=== PATIENT | female | born 1965 | race Caucasian/White ===

== ENCOUNTER → 2019-04-10 15:11 | Outpatient (BNVA) | payer MEDICARE, OTHER, SELFPAY | PROVIDERS: Family Provider Family Medicine; PCP Family Medicine; Visit Provider Internal Medicine Rheumatology | DX: M25.561 Pain in right knee (principal); M25.562 Pain in left knee; G35 Multiple sclerosis; D68.61 Antiphospholipid syndrome; Z86.718 Personal history of other venous thrombosis and embolism; Z86.711 Personal history of pulmonary embolism; Z99.3 Dependence on wheelchair; Z79.01 Long term (current) use of anticoagulants | CPT/HCPCS: 99215; G0463 ==

== ENCOUNTER 2019-04-13 15:03 | Outpatient (CLI) | payer MEDICARE, OTHER, SELFPAY ==
[2019-04-13 15:44] LABS: Basophils # 0.1 10^3/uL (0.0-0.1); Basophils % 0.9 %; Eosinophils # 0.2 10^3/uL (0.0-0.8); Eosinophils % 3.2 %; Hematocrit 40.5 % (37.0-47.0); Hemoglobin 13.2 g/dL (11.5-15.3); Lymphocytes # 2.4 10^3/uL (0.8-4.8); Lymphocytes % 35.6 %; Mean Corpuscular HGB Conc 32.6 g/dL (30.0-36.0); Mean Corpuscular Hemoglobin 29.5 pg (28.0-34.0); Mean Corpuscular Volume 90.6 fL (81-99); Mean Platelet Volume 11.7 fL (7.4-10.4); Monocytes # 0.3 10^3/uL (0.2-0.9); Monocytes % 4.4 %; Neutrophils # 3.7 10^3/uL (1.8-7.7); Neutrophils % 55.6 %; Nucleated Red Blood Cells % 0 %; Platelet Count 156 10^3/cmm (130-400); Red Blood Count 4.47 10^6/uL (4.1-5.3); White Blood Count 6.6 10^3/uL (4.0-10.0)
[2019-04-13 16:06] LABS: Complement C3 133 mg/dL (90-180)
[2019-04-13 16:53] LABS: Erythrocyte Sedimentation Rate 80 mm/hr (0-15)
[2019-04-13 18:09] LABS: Alanine Aminotransferase 10 U/L (0-33); Albumin Level 3.5 g/dL (3.5-5.2); Alkaline Phosphatase 109 IU/L (35-105); Aspartate Amino Transferase 21 U/L (0-32); C Reactive Protein 15.4 mg/L (0.0-4.9); Total Bilirubin 0.2 mg/dL (0.15-1.2); Total Protein 6.5 g/dL (6.6-8.7); Uric Acid 3.9 mg/dL (2.4-5.7)
[2019-04-14 08:37] LABS: 25 Hydroxy Vitamin D 31 ng/mL (30-100)
== END 2019-04-13 15:04 | disposition home or self-care (01) ==
LOC: LAB 15:06
PROVIDERS: Family Provider Family Medicine; PCP Family Medicine; Visit Provider Internal Medicine Rheumatology
DX: Z79.899 Other long term (current) drug therapy (principal); M19.90 Unspecified osteoarthritis, unspecified site
CPT/HCPCS: 80076; 82306; 82565; 84550; 85025; 85651; 86140; 86160

== ENCOUNTER 2019-04-17 14:58 | Outpatient (CLI) | payer MEDICARE, OTHER, SELFPAY ==
--- NOTE | 2019-04-17 | XR_ITS ---
WS: [id number] LEFT KNEE: 2 VIEW(S) TECHNIQUE: AP and lateral. HISTORY: BILATERAL KNEE PAIN COMPARISON: None available. Bones are markedly osteopenic. Very limited evaluation of the knee due to difficulty positioning. Mix ed sclerotic and lytic lesions in the distal femur and proximal tibia probably related to prior infar cts. Patella is abnormally positioned. There is loss of the joint space in the medial compartment and patellofemoral compartment. No joint effusion. No soft tissue abnormality. XR/XR knee LT 1-2V [id number] IMPRESSION: 1. Severe osteopenia. 2. No fracture identified. 3. No joint effusion. 4. 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
--- NOTE | 2019-04-17 | XR_ITS ---
WS: [id number] RIGHT KNEE: 2 VIEW(S) TECHNIQUE: AP and lateral. HISTORY: BILATERAL KNEE PAIN COMPARISON: None available. No fracture or dislocation. Mild narrowing of all 3 compartments. Mixed sclerotic and lytic lesions in the distal femur and proxi mal tibia. No joint effusion. No soft tissue abnormality. XR/XR knee RT 1-2V [id number] IMPRESSION: 1. No joint effusion or fracture. 2. Bone infarcts distal femur and proximal tibia.
== END 2019-04-17 14:59 | disposition home or self-care (01) ==
LOC: RADOUTREAD 04-18 07:16
PROVIDERS: Family Provider Family Medicine; PCP Family Medicine; Visit Provider Family Medicine
DX: Z76.89 Persons encountering health services in other specified circumstances (principal)

== ENCOUNTER 2019-04-20 06:00 | Outpatient (CLI) | payer MEDICARE, OTHER, SELFPAY ==
[2019-04-23 13:41] LABS: Cyclic Citrullinated Peptide <16 UNITS
== END 2019-04-20 06:01 | disposition home or self-care (01) ==
LOC: LAB 11:59
PROVIDERS: Family Provider Family Medicine; PCP Family Medicine; Visit Provider Internal Medicine Rheumatology
DX: Z01.89 Encounter for other specified special examinations (principal)

== ENCOUNTER 2019-05-14 10:08 | Outpatient (CLI) | payer MEDICARE, OTHER, SELFPAY ==
--- NOTE | 2019-05-14 10:14 | MR_ITS ---
WS: [id number] MRI of the pelvis with and without IV contrast, 05/14/2019 Clinical Data: Hx of Osteomyelitis of ischium, chronic decubitus ulcers Comparison: MRI of the pelvis, 03/06/2018. Findings: There are soft tissue ulcerations inferior to both ischial tuberosities. The bone marrow signal of th e pelvis, hips sacrum and lower vertebral bodies is normal. There is no abnormal enhancement after th e intravenous contrast was administered. No definite osteomyelitis is seen. The coccyx and lower segm ents of the sacrum are absent. The hips are intact without fracture. No pelvic fractures are seen. T he soft tissues of pelvis show that there is a catheter within the bladder. The rectum and uterus are not remarkable. The SI joints and pubic symphysis are not remarkable. MR/MR pelvis wo/w con [id number] Impression: 1. Soft tissue ulcerations inferior to both issue tuberosities unchanged. 2. No definite osteomyelitis and no abnormal contrast-enhancement structures. 3. No change from prior study.
== END 2019-05-14 10:09 | disposition home or self-care (01) ==
LOC: RADSHAW 10:08
PROVIDERS: Family Provider Family Medicine; PCP Family Medicine; Visit Provider Internal Medicine Rheumatology
DX: L89.899 Pressure ulcer of other site, unspecified stage (principal)
CPT/HCPCS: 72197; A9579

== ENCOUNTER 2019-10-03 14:32 | Outpatient (CLI) | payer MEDICARE, OTHER, SELFPAY ==
[2019-10-03 19:44] LABS: Alanine Aminotransferase 9 U/L (0-33); Albumin Level 3.4 g/dL (3.5-5.2); Alkaline Phosphatase 111 IU/L (35-105); Aspartate Amino Transferase 23 U/L (0-32); Blood Urea Nitrogen 5 mg/dL (6-20); Calcium 9.1 mg/dL (8.5-10.5); Carbon Dioxide 29 mmol/L (22-29); Chloride 95 mmol/L (98-107); Globulin 2.8 g/dL (1.3-4.6); Glucose 103 mg/dL (65-115); Osmolality Calculated 276 mOsm/kg (285-295); Sodium 135 mmol/L (136-145); Total Bilirubin 0.2 mg/dL (0.15-1.2); Total Protein 6.2 g/dL (6.6-8.7)
== END 2019-10-03 14:33 | disposition home or self-care (01) ==
LOC: LAB 14:36
PROVIDERS: PCP Family Medicine; Visit Provider Family Medicine
DX: G35 Multiple sclerosis (principal)
CPT/HCPCS: 80053

== ENCOUNTER 2019-10-24 16:33 | Outpatient (CLI) | payer MEDICARE, OTHER, SELFPAY ==
[2019-10-24 17:29] LABS: Anion Gap 11.9 (5-19); Blood Urea Nitrogen 5 mg/dL (6-20); Carbon Dioxide 28 mmol/L (22-29); Chloride 100 mmol/L (98-107); Glucose 111 mg/dL (65-115); Osmolality Calculated 278 mOsm/kg (285-295); Potassium 3.9 mmol/L (3.5-5.1); Sodium 136 mmol/L (136-145)
== END 2019-10-24 16:34 | disposition home or self-care (01) ==
LOC: LAB 16:35
PROVIDERS: PCP Family Medicine; Visit Provider Family Medicine
DX: G35 Multiple sclerosis (principal)
CPT/HCPCS: 80048

== ENCOUNTER → 2020-04-07 14:19 | Outpatient (BNVA) | payer MEDICARE, OTHER, SELFPAY | PROVIDERS: PCP Family Medicine; Visit Provider Specialist | DX: G35 Multiple sclerosis (principal); Z79.899 Other long term (current) drug therapy | CPT/HCPCS: 99214 ==

== ENCOUNTER 2020-09-03 16:22 | Inpatient (IN) | payer MEDICARE, OTHER, SELFPAY ==
[2020-09-03] VITALS (14 sets, daily range): BP systolic 74–97; BP diastolic 45–73; PULSE 79–115; RESP 14–28; TEMP 37; O2SAT 95–100; BMI 28.3
--- NOTE | 2020-09-03 16:23 | XR_ITS ---
WS: [id number] Portable AP upright chest, 09/03/2020 Clinical Data: resp distress Comparison: Portable chest, 02/02/2018. Findings: There is a patchy opacity in the retrocardiac region which is probably atelectasis. There may be a left pleural effusion. There is a minimal patchy opacity of the right costophrenic angle. No nodules or masses are seen. The heart is normal. The pulmonary vascularity is not increased. No pneu mothorax is present. Monitor leads are on the chest wall. XR/XR chest 1V portable [id number] Impression: 1. Patchy opacity in the retrocardiac region which probably represents atelecta sis with a left pleural effusion. 2. Minimal patchy opacity at the right costophrenic angle which could represent atelectasis and/or minimal pneumonia.
--- NOTE | 2020-09-03 16:25 | ECG_ITS ---
[facility] Test Date: 2020-09-03 Pat Name: Deborah Viramontes Department: Room: Gender: Female Neuropsychologist: : 1965 Requested By: Bobby Mills Order Number: [id number] Mita MD: Thom Frederick M.D. Measurements Intervals [place] Rate: 96 P: 63 TX: 120 QRS: 18 QRSD: 92 T: -36 QT: 358 QTc: 455 Interpretive Statements SINUS RHYTHM MINIMAL ST DEPRESSION [0.025+ mV ST DEPRESSION] Diffuse nonspecific T wave changes Compared to ECG 05/18/2017 06:51:48 ST (T wave) deviation now present T-wave abnormality no longer present Electronically Signed On 09-03-2020 22:54:26 CDT by Thom Frederick M.D. [id number]
[2020-09-03 16:28] LABS: ABG PCO2 43.9 mmHg (35-45); ABG PH Result 7.44 (7.35-7.45); Arterial Blood Gas Hematocrit 46.7 % (37-47); Base Excess ABG 4.9 mmol/L (-2.0-2.0); Blood Gas Operator Identificat MONRO; Blood Gas Sample Site Radial, left; Blood Gas Sample Type Arterial; HCO3 ABG 29.8 mmol/L (22-26); HGB O2 Sat 79.9 % (95-100); Methemoglobin 0.6 % (0.4-1.5); Oxygen Device NRB; PO2 ABG 47.2 mmHg (80.0-100.0); Total Hemoglobin 15.2 g/dL (12-16)
--- NOTE | 2020-09-03 16:48 | CTR_ITS ---
PROCEDURE INFORMATION: Exam: CT Chest Without Contrast; Diagnostic Exam date and time: 09/03/2020 4:48 PM Age: 54 years old Clinical indication: Shortness of breath; Additional info: Dyspnea. H/o pneumothorax x 2. TECHNIQUE: Imaging protocol: Diagnostic computed tomography of the chest without contrast. Sagittal and coronal reformatted images were created and reviewed. Radiation optimization: All CT scans at this facility use at least one of these dose optimization techniques: automated exposure control; mA and/or kV adjustment per patient size (includes targeted exams where dose is matched to clinical indication); or iterative reconstruction. COMPARISON: CR XR chest 1V portable [id number] 09/03/2020 4:32 PM RADIATION DOSE METRICS: Total DLP (mGy-cm): 787.66 FINDINGS: Limitations: Evaluation of the mediastinum and vasculature is limited without intravenous contrast. Lungs: Mucous plugging in the left lower lobe bronchus extending into the left upper lobe, left lingular, and left lower lobe bronchus and segmental bronchi. Associated atelectasis in the left lower lobe, possible pneumonia cannot be ruled out. No pulmonary parenchymal nodules or masses. Areas of rounded atelectasis in the right upper and lower lobes. Pleural spaces: No pneumothorax. No pleural effusion. Heart: Mild enlargement of the heart. Mediastinal space: No mediastinal hematoma. No pneumomediastinum. Aorta: No evidence for aortic aneurysm. Lymph nodes: No lymphadenopathy. Liver: The visualized liver is unremarkable. Gallbladder and bile ducts: Patient has had a previous cholecystectomy. No dilatation of the visualized bile ducts. Pancreas: Moderate atrophy of the visualized pancreatic parenchyma. Spleen: The spleen is unremarkable. Adrenal glands: The right and left adrenal glands are unremarkable. Kidneys and ureters: The visualized right and left kidneys are unremarkable. Bones/joints: Multilevel degenerative changes of varying severity in the visualized spine. Soft tissues: Mild body wall edema. CT/CT chest wo con [id number] IMPRESSION: 1. Mucous plugging in the left lower lobe bronchus extending into the left upper lobe, left lingular, and left lower lobe bronchus and segmental bronchi. Associated atelectasis in the left lower lobe, possible pneumonia cannot be ruled out. Recommend followup chest imaging to insure resolution of these findings. 2. Mild body wall edema. 3. Incidental/nonacute findings are listed in the report. Radiation Dose CTDIVOL = (mGy): DLP = 787.66 (mGy-cm)
[2020-09-03] MEDS: cefTRIAXone 1,000 MG in sodium chloride 0.9% (plus) 50 ML 100 MG IV (16:52)
[2020-09-03] MEDS: sodium chloride 0.9% 1,000 ML 999 ML IV (16:53)
[2020-09-03 17:00] LABS: Basophils # 0.1 10^3/uL (0.0-0.1); Basophils % 0.4 %; Eosinophils % 0.3 %; Hematocrit 45.7 % (37.0-47.0); Hemoglobin 14.8 g/dL (11.5-15.3); Lymphocytes # 1.4 10^3/uL (0.8-4.8); Lymphocytes % 12.5 %; Mean Corpuscular HGB Conc 32.4 g/dL (30.0-36.0); Mean Corpuscular Volume 89.6 fL (81-99); Mean Platelet Volume 12.4 fL (7.4-10.4); Monocytes # 0.7 10^3/uL (0.2-0.9); Monocytes % 6.2 %; Neutrophils # 8.97 10^3/uL (1.8-7.7); Neutrophils % 80.2 %; Nucleated Red Blood Cells % 0 %; Platelet Count 134 10^3/cmm (130-400); Red Cell Distribution Width 15.9 % (12.1-15.1); White Blood Count 11.2 10^3/uL (4.0-10.0)
[2020-09-03 17:04] LABS: INR 2.33 (0.8-1.2)
[2020-09-03 17:15] LABS: Troponin(5th) Baseline 49 ng/L (0-10)
[2020-09-03 17:19] LABS: Alanine Aminotransferase 8 U/L (0-33); Albumin Level 3.4 g/dL (3.5-5.2); Alkaline Phosphatase 128 IU/L (35-105); Anion Gap 15.6 (5-19); Aspartate Amino Transferase 17 U/L (0-32); Blood Urea Nitrogen 7 mg/dL (6-20); Calcium 8.4 mg/dL (8.5-10.5); Carbon Dioxide 27 mmol/L (22-29); Chloride 101 mmol/L (98-107); Creatine Phosphokinase 29 U/L (26-192); Globulin 2.2 g/dL (1.3-4.6); Glomerular Filtration Rate 129.1 mL/min (90-130); Glucose 126 mg/dL (65-115); NT Pro B Type Natriuretic Pept 118 pg/mL (0-125); Osmolality Calculated 290 mOsm/kg (285-295); Potassium 3.6 mmol/L (3.5-5.1); Sodium 140 mmol/L (136-145); Total Bilirubin 0.2 mg/dL (0.15-1.2); Total Protein 5.6 g/dL (6.6-8.7)
[2020-09-03] MEDS: ipratropium-albuterol 3 mL Neb INHALATION ×2 (17:25→21:07)
[2020-09-03] MEDS: vancomycin 1,000 MG in sodium chloride 0.9% 250 ML 250 MG IV (17:35)
[2020-09-03] MEDS: piperacillin-tazobactam 3.375 GM in sodium chloride 0.9% (plus) 50 ML IV (17:35)
[2020-09-03 17:42] LABS: Add Urine Microscopic? YES; Bilirubin Urine Neg (Negative); Blood Urine 2+ (Negative); Glucose Urine UA Norm (Normal); Ketones Urine Negative (Negative); Leukocyte Esterase Urine 2+ (Negative); Nitrate Urine Negative (Negative); Protein Urine Neg (Negative); Specific Gravity, Urine 1.015 (1.005-1.030); Sulfosalicylic Acid Urine Negative (Negative); Urine Appearance Hazy (CLEAR); Urine Color Yellow (Yellow); Urobilinogen Urine Norm (Negative); pH Urine 8 (5-7)
[2020-09-03 17:43] LABS: Add Urine Culture? Yes; Bacteria Urine 3+ /hpf; RBC Urine 0-4 /hpf (0-2); Squamous Epithelial Cell Urine RARE /hpf (0-5); WBC Urine 15-25 /hpf (0-5)
[2020-09-03 17:59] LABS: Lactic Sepsis W/Reflex 1.2 mmol/L (0.5-2.2)
[2020-09-03 18:07] LABS: SARS Covid-2 Antigen Negative (Negative)
--- NOTE | 2020-09-03 18:20 | W.ED.SOB ---
HPI - SOB/Dyspnea General: Chief Complaint: Shortness of Breath/Dyspnea Stated Complaint: RESP DISTRESS, RESP FAILURE Time Seen by Provider: 09/03/20 16:23 History of Present Illness: HPI Narrative: Patient is a 54-year-old female with past medical history MS with severe chronic weakness for the past few years which is left her wheelchair-bound and only able to move her left upper extremity. Also has history of and being treated for UTI on Keflex right now. Had DVTs and PEs years ago and she is on Coumadin for this. She has suffered from JOSEPH virus in the past, she has neurogenic bladder and she has had a pneumothorax twice. She has not received her Covid vaccines. says she does not want them. She normally does not wear oxygen at home however she does have as needed oxygen and she started on 3 L today. When EMS arrived they noted her sats noted she was severely hypoxic and started her on nonrebreather which got her up to the low 90s. They also noted severely reduced left lower lung sounds. MD elicited complaint: shortness of breath Timing: constant and progressively worsening Severity: severe Relieving factors: oxygen Associated symptoms: Reports no associated symptoms; Deny abdominal pain, chest pain, dizziness, extremity pain, orthopnea, palpitations or polyuria Review of Systems General: Reports: 10 or more systems reviewed and unremarkable except in HPI and below Const: Denies: fatigue Eyes: Denies: change in vision, blurry vision or eye redness ENMT: Denies: throat pain, swelling of lips/tongue, ear or mastoid pain or nasal congestion Card: Denies: chest pain, palpitations, irregular heart rhythm, edema, dyspnea on exertion or orthopnea Resp: Reports: dyspnea; Denies: productive cough or non-productive cough GI: Denies: abdominal pain, diarrhea or GI cramping : Denies: flank pain, difficulty voiding, urinary frequency or urinary urgency Musc: Denies: neck pain, back pain, extremity pain, joint pain, joint redness, limited range of motion or muscle weakness Skin/Breast: Denies: rash, pruritus, erythema, skin pain or skin tenderness Neuro: Denies: headache(s), numbness in extremities, weakness in extremities, sensory changes, difficulty walking, dizziness, confusion or Slurred speech present Psych: Denies: anxiety or depression Endo: Denies: polyuria All/Imm: Denies: urticaria, throat swelling or tongue swelling PFSH ED PFSH: Medical History Pedro disease Antiphospholipid syndrome AVN of femur Bone infarction of lower extremity High risk medication use Hx of deep venous thrombosis Hx of pulmonary embolus Immunization counseling Inflammatory arthritis Multiple sclerosis Neuralgia and neuritis, unspecified Positive JARRED (antinuclear antibody) Pulmonary embolism Recurrent UTI Systemic lupus erythematosus, unspecified Wheelchair bound Surgical History H/O chest tube placement History of bone marrow biopsy Hx of cholecystectomy Family History Denies family history of Rheumatoid arthritis Lupus Social History Smoking and tobacco status: unknown if ever smoked Alcohol intake: former Caregiver/support person: Yes () Lives independently: Yes Household members: spouse Marital status: Current occupational status: disabled History of recent travel: No Current gender identity: Female Physical Exam Narrative: EXAM NARRATIVE: She has chronic MS which is severe with profound extremity weakness. She is only able to move her left upper extremity chronically and lives in a wheelchair. Const: COMMON NORMALS: patient oriented x3 and alert GENERAL APPEARANCE: in distress and ill appearing ORIENTATION/CONSCIOUSNESS: Yes awake, Yes oriented to person and Yes oriented to place OTHER: She responds to questions appropriately when asked. HENMT: COMMON NORMALS: normocephalic, external ears normal and Normal external nose present HEAD & SCALP: normal to inspection and normocephalic NOSE: Normal external nose present EXTERNAL EAR: Yes external ears normal MOUTH: Normal oral and palatal mucosa present THROAT: posterior oropharynx normal Eye: COMMON NORMALS: Equal, round and reactive pupils present and EOMs intact bilaterally GENERAL EYE: appearance normal, both eyes and all related structures PUPIL: Yes Equal, round and reactive pupils present Neck/C-Spine: COMMON NORMALS: full ROM, no lymphadenopathy, no meningeal signs and no JVD GENERAL: Yes normal visual inspection Lymph: LYMPHATIC: no lymphadenopathy noted Chest: COMMONS NORMALS: normal inspection of the chest and normal palpation of entire chest wall Resp: EFFORT & INSPECTION: Yes tachypneic, Yes respiratory distress and Yes other OTHER: Severely reduced breath sounds on the left entire lung diez. Right lung diez are normal with a mild wheeze occasionally. She has profound weakness from her MS chronically and likely does not have very good inspiratory effort chronically. Cardio: COMMON NORMALS: no JVD, regular rate, regular rhythm, S1 normal heart sound present, S2 normal heart sound present and Peripheral pulses 2+ throughout RATE: regular rate RHYTHM: regular rhythm HEART SOUNDS: S1 normal heart sound present and S2 normal heart sound present PERIPHERAL PULSES: Peripheral pulses 2+ throughout GI: COMMON NORMALS: Normal to inspection, nondistended, normoactive bowel sounds present, Soft to palpation, non-tender and no masses INSPECTION: Yes normal to inspection PALPATION: Yes Soft to palpation : COMMON NORMALS: Yes no CVA tenderness BLADDER/KIDNEY EXAM: Yes no CVA tenderness Back/Pelvis: COMMON NORMALS: no CVA tenderness, thoracic and lumbar spine normal to inspection, no thoracic nor lumbar tenderness and thoraco-lumbar ROM normal Extremity: COMMON NORMALS: normal to inspection, full ROM, capillary refill normal, no joint enlargement and no pedal edema GENERAL: Yes normal exam except as noted OTHER: Chronic severely weak right upper and bilateral lower extremity weakness. She has mildly weak in her left upper extremity well but is able to move it above her head and pointed things. Neuro: COMMON NORMALS: patient oriented x3 SENSORIUM/ORIENTATION: Yes alert, Yes oriented to person, Yes oriented to place and Yes somnolent MENINGEAL SIGNS: Yes no meningeal signs OTHER: Chronically she is only able to move her left upper extremity. The right upper and bilateral lower extremities are severely weak with no movement at all. She has intact sensation. She lives in a wheelchair chronically. She is able to make eye contact and answer some questions on arrival. She is sleepy but will awaken to verbal stimulus and answer questions appropriately. Skin: COMMON NORMALS: no rashes or lesions noted GENERAL SKIN EXAM: no rashes or lesions noted Course Vital Signs: Vital signs: Vital Signs Temperature 98.6 F 09/03/20 16:22 Pulse Rate 87 09/03/20 17:30 Respiratory Rate 14 09/03/20 17:23 Blood Pressure 92/62 09/03/20 16:58 Pulse Oximetry 95 09/03/20 17:29 MDM - SOB/Dyspnea MDM Narrative: Medical decision making narrative: This patient came in severely ill with reduced breath sounds on the left side. Concern for pneumothorax initially because of her history of having 2 of them however it was found with a CT that she more than likely has mucous plugging causing her severely reduced breath sounds likely from her chronic muscular weakness related to MS and poor inspiratory effort chronically. Placed her on BiPAP which improved her respiratory status greatly and she is now breathing comfortably on that. Discussed with Dr. Rojas who recommends admitting her to the ICU and doing a bronc in the morning. Discussed with Dr. Alonzo who accepts to ICU Lab Data: Labs: Lab Results 09/03/20 09/03/20 09/03/20 Range/Units 16:17 16:23 16:23 WBC 11.2 H (4.0-10.0) 10^3/ uL RBC 5.10 (4.1-5.3) 10^6/u L Hgb 14.8 (11.5-15.3) g/dL Hct 45.7 (37.0-47.0) % MCV 89.6 (81-99) fL MCH 29.0 (28.0-34.0) pg MCHC 32.4 (30.0-36.0) g/dL RDW 15.9 H (12.1-15.1) % Plt Count 134 (130-400) 10^3/c mm MPV 12.4 H (7.4-10.4) fL Neut % (Auto) 80.2 % Lymph % (Auto) 12.5 % [place] % (Auto) 6.2 % Eos % (Auto) 0.3 % Baso % (Auto) 0.4 % Neut # (Auto) 8.97 H (1.8-7.7) 10^3/u L Lymph # (Auto) 1.4 (0.8-4.8) 10^3/u L [place] # (Auto) 0.7 (0.2-0.9) 10^3/u L Eos # (Auto) 0.0 (0.0-0.8) 10^3/u L Baso # (Auto) 0.1 (0.0-0.1) 10^3/u L Nucleated RBC % (a uto) 0 % Nucleated RBCs # 0.0 /100WBC PT (12.1-14.9) SECO NDS INR (0.8-1.2) Specimen Type Arterial Sample Site Radial, left ABG pH 7.44 (7.35-7.45) ABG pCO2 43.9 (35-45) mmHg ABG pO2 47.2 L (80.0-100.0) mmH g ABG HCO3 29.8 H (22-26) mmol/L ABG Base Excess 4.9 H (-2.0-2.0) mmol/ L Adam Test N/a Hematocrit 46.7 (37-47) % Hgb O2 Saturation 79.9 L (95-100) % Carboxyhemoglobin 9.0 (0.4-20.1) %THgb Methemoglobin 0.6 (0.4-1.5) % Total Hemoglobin 15.2 (12-16) g/dL O2 Delivery Device Nrb O2 Liters/Min 15.0 % FiO2 100.0 % Disc Recordist ID [place] Sodium 140 (136-145) mmol/L Potassium 3.6 (3.5-5.1) mmol/L Chloride 101 (98-107) mmol/L Carbon Dioxide 27 (22-29) mmol/L Anion Gap 15.6 (5-19) BUN 7 (6-20) mg/dL Creatinine 0.5 (0.5-0.9) mg/dL GFR Calculation 129.1 (90-130) mL/min Glucose 126 H (65-115) mg/dL Calculated Osmolal ity 290 (285-295) mOsm/k g Lactic Acid (0.5-2.2) mmol/L Calcium 8.4 L (8.5-10.5) mg/dL Total Bilirubin 0.2 (0.15-1.2) mg/dL AST 17 (0-32) U/L ALT 8 (0-33) U/L Alkaline Phosphata se 128 H (35-105) IU/L Creatine Kinase 29 (26-192) U/L Troponin T Baselin e (0-10) ng/L NT-Pro-B Natriuret Pep 118 (0-125) pg/mL Total Protein 5.6 L (6.6-8.7) g/dL Albumin 3.4 L (3.5-5.2) g/dL Globulin 2.2 (1.3-4.6) g/dL Urine Color (Yellow) Urine Appearance (CLEAR) Urine pH (5-7) Ur Specific Gravit y (1.005-1.030) Urine Protein (Negative) Urine Glucose (UA) (Normal) Urine Ketones (Negative) Urine Blood (Negative) Urine Nitrate (Negative) Urine Bilirubin (Negative) Prot Sulfosalicyli c Acd (Negative) Urine Urobilinogen (Negative) mg/dL Ur Leukocyte Genna ase (Negative) Urine RBC (0-2) /hpf Urine WBC (0-5) /hpf Ur Squamous Epith Cells (0-5) /hpf Amorphous Sediment Urine Bacteria (NONE) /hpf Coarse Granular Ca sts /lpf SARS-CoV-2 Ag (Rap id) (Negative) 09/03/20 09/03/20 09/03/20 Range/Units 16:23 16:23 16:55 WBC (4.0-10.0) 10^3/ uL RBC (4.1-5.3) 10^6/u L Hgb (11.5-15.3) g/dL Hct (37.0-47.0) % MCV (81-99) fL MCH (28.0-34.0) pg MCHC (30.0-36.0) g/dL RDW (12.1-15.1) % Plt Count (130-400) 10^3/c mm MPV (7.4-10.4) fL Neut % (Auto) % Lymph % (Auto) % [place] % (Auto) % Eos % (Auto) % Baso % (Auto) % Neut # (Auto) (1.8-7.7) 10^3/u L Lymph # (Auto) (0.8-4.8) 10^3/u L [place] # (Auto) (0.2-0.9) 10^3/u L Eos # (Auto) (0.0-0.8) 10^3/u L Baso # (Auto) (0.0-0.1) 10^3/u L Nucleated RBC % (a uto) % Nucleated RBCs # /100WBC PT 26.00 H (12.1-14.9) SECO NDS INR 2.33 H (0.8-1.2) Specimen Type Sample Site ABG pH (7.35-7.45) ABG pCO2 (35-45) mmHg ABG pO2 (80.0-100.0) mmH g ABG HCO3 (22-26) mmol/L ABG Base Excess (-2.0-2.0) mmol/ L Adam Test Hematocrit (37-47) % Hgb O2 Saturation (95-100) % Carboxyhemoglobin (0.4-20.1) %THgb Methemoglobin (0.4-1.5) % Total Hemoglobin (12-16) g/dL O2 Delivery Device O2 Liters/Min % FiO2 % Disc Recordist ID Sodium (136-145) mmol/L Potassium (3.5-5.1) mmol/L Chloride (98-107) mmol/L Carbon Dioxide (22-29) mmol/L Anion Gap (5-19) BUN (6-20) mg/dL Creatinine (0.5-0.9) mg/dL GFR Calculation (90-130) mL/min Glucose (65-115) mg/dL Calculated Osmolal ity (285-295) mOsm/k g Lactic Acid (0.5-2.2) mmol/L Calcium (8.5-10.5) mg/dL Total Bilirubin (0.15-1.2) mg/dL AST (0-32) U/L ALT (0-33) U/L Alkaline Phosphata se (35-105) IU/L Creatine Kinase (26-192) U/L Troponin T Baselin e 49 H (0-10) ng/L NT-Pro-B Natriuret Pep (0-125) pg/mL Total Protein (6.6-8.7) g/dL Albumin (3.5-5.2) g/dL Globulin (1.3-4.6) g/dL Urine Color Yellow (Yellow) Urine Appearance Hazy A (CLEAR) Urine pH 8 H (5-7) Ur Specific Gravit y 1.015 (1.005-1.030) Urine Protein Neg (Negative) Urine Glucose (UA) Norm (Normal) Urine Ketones Negative (Negative) Urine Blood 2+ H (Negative) Urine Nitrate Negative (Negative) Urine Bilirubin Neg (Negative) Prot Sulfosalicyli c Acd Negative (Negative) Urine Urobilinogen Norm (Negative) mg/dL Ur Leukocyte Genna ase 2+ H (Negative) Urine RBC 0-4 H (0-2) /hpf Urine WBC 15-25 H (0-5) /hpf Ur Squamous Epith Cells Rare (0-5) /hpf Amorphous Sediment Not Reportable Urine Bacteria 3+ H (NONE) /hpf Coarse Granular Ca sts 5-10 H /lpf SARS-CoV-2 Ag (Rap id) (Negative) 09/03/20 09/03/20 Range/Units 17:11 17:15 WBC (4.0-10.0) 10^3/ uL RBC (4.1-5.3) 10^6/u L Hgb (11.5-15.3) g/dL Hct (37.0-47.0) % MCV (81-99) fL MCH (28.0-34.0) pg MCHC (30.0-36.0) g/dL RDW (12.1-15.1) % Plt Count (130-400) 10^3/c mm MPV (7.4-10.4) fL Neut % (Auto) % Lymph % (Auto) % [place] % (Auto) % Eos % (Auto) % Baso % (Auto) % Neut # (Auto) (1.8-7.7) 10^3/u L Lymph # (Auto) (0.8-4.8) 10^3/u L [place] # (Auto) (0.2-0.9) 10^3/u L Eos # (Auto) (0.0-0.8) 10^3/u L Baso # (Auto) (0.0-0.1) 10^3/u L Nucleated RBC % (a uto) % Nucleated RBCs # /100WBC PT (12.1-14.9) SECO NDS INR (0.8-1.2) Specimen Type Sample Site ABG pH (7.35-7.45) ABG pCO2 (35-45) mmHg ABG pO2 (80.0-100.0) mmH g ABG HCO3 (22-26) mmol/L ABG Base Excess (-2.0-2.0) mmol/ L Adam Test Hematocrit (37-47) % Hgb O2 Saturation (95-100) % Carboxyhemoglobin (0.4-20.1) %THgb Methemoglobin (0.4-1.5) % Total Hemoglobin (12-16) g/dL O2 Delivery Device O2 Liters/Min % FiO2 % Disc Recordist ID Sodium (136-145) mmol/L Potassium (3.5-5.1) mmol/L Chloride (98-107) mmol/L Carbon Dioxide (22-29) mmol/L Anion Gap (5-19) BUN (6-20) mg/dL Creatinine (0.5-0.9) mg/dL GFR Calculation (90-130) mL/min Glucose (65-115) mg/dL Calculated Osmolal ity (285-295) mOsm/k g Lactic Acid 1.2 (0.5-2.2) mmol/L Calcium (8.5-10.5) mg/dL Total Bilirubin (0.15-1.2) mg/dL AST (0-32) U/L ALT (0-33) U/L Alkaline Phosphata se (35-105) IU/L Creatine Kinase (26-192) U/L Troponin T Baselin e (0-10) ng/L NT-Pro-B Natriuret Pep (0-125) pg/mL Total Protein (6.6-8.7) g/dL Albumin (3.5-5.2) g/dL Globulin (1.3-4.6) g/dL Urine Color (Yellow) Urine Appearance (CLEAR) Urine pH (5-7) Ur Specific Gravit y (1.005-1.030) Urine Protein (Negative) Urine Glucose (UA) (Normal) Urine Ketones (Negative) Urine Blood (Negative) Urine Nitrate (Negative) Urine Bilirubin (Negative) Prot Sulfosalicyli c Acd (Negative) Urine Urobilinogen (Negative) mg/dL Ur Leukocyte Genna ase (Negative) Urine RBC (0-2) /hpf Urine WBC (0-5) /hpf Ur Squamous Epith Cells (0-5) /hpf Amorphous Sediment Urine Bacteria (NONE) /hpf Coarse Granular Ca sts /lpf SARS-CoV-2 Ag (Rap id) Negative (Negative) Discharge Plan Discharge Patient Disposition: Admitted As Inpatient Clinical Impression: Mucus plugging of bronchi, Multiple sclerosis, Acute respiratory distress Condition: Stable Coding Level of Care Code ED Nylon Machine Operator for Betty Mccarthy
--- NOTE | 2020-09-03 18:25 | ECG_ITS ---
[facility] Test Date: 2020-09-03 Pat Name: Deborah Viramontes Department: Room: ICU12 Gender: Female Chemical Research Technician: : 1965 Requested By: Bobby Mills Order Number: [id number] Mita MD: Thom Frederick M.D. Measurements Intervals [place] Rate: 88 P: 56 VA: 129 QRS: 20 QRSD: 85 T: -19 QT: 367 QTc: 445 Interpretive Statements SINUS RHYTHM Compared to ECG 09/03/2020 17:17:45 ST (T wave) deviation no longer present Electronically Signed On 09-03-2020 23:07:49 CDT by Thom Frederick M.D. [email or web address]
[2020-09-03 19:13] LABS: Troponin 5 2HR 49.55 ng/L (0-10); Troponin 5 2HR Delta 0.55 ABS# (0-10)
--- NOTE | 2020-09-03 19:37 | PM.HP ---
Providers/Chief Complaint Admitting Physician: Stu Alonzo Primary Care Provider: Jarod Cherry MD Chief Complaint: RESP DISTRESS, RESP FAILURE History of Present Illness Pleasant 54-year-old lady with history of MS, paralysis of both lower and right upper extremities, chronically bed/chair bound, with chronic pressure ulcers, history of osteomyelitis, with suprapubic catheter which is usually changed every 3 weeks, last changed 1 and 1/2 weeks ago, with recurrent urinary infections, currently on active treatment with Keflex, with some history of aspiration, tolerating liquids consistency of protein shake per , with other problems and past medical history including VTE, PE, on chronic anticoagulation with warfarin, antiphospholipid syndrome, SLE, history of chronic hypotension, history of adrenal insufficiency. Brought in by EMS due to respiratory distress, hypoxia, requiring 100% oxygen by nonrebreather. In ER placed on BiPAP, 60% FiO2 with improvement in saturations. CT chest with finding of mucous plugging in left lower lobe bronchus extending into the left upper lobe, left lingular and left lower lobe bronchus and segmental bronchi. Associated atelectasis in left lower lobe possible pneumonia cannot be ruled out. Mild body wall edema. Blood pressure noted low in the ER, 82/57. She chronically does have blood pressure that is low, per vitals during 2019 admission appears to be in the 90s-low 100. states recently blood pressure at home has been better in high [id number]. She is currently weaned off BiPAP back to nonrebreather mask at 12 L, maintaining saturation, with improvement in hypotension, systolic blood pressure up to 96. She is admitted to intensive care unit for assessment and treatment of respiratory failure, pending additional evaluation by pulmonology with tentative plan for possible bronchoscopy tomorrow. Review of Systems Const: Denies: fever(s), chills, body aches or malaise Eyes: Denies: change in vision or eye redness ENMT: Denies: throat pain, oral sores or ear or mastoid pain Card: Denies: chest pain, edema, pre-syncope or dyspnea on exertion Resp: Reports: dyspnea and productive cough; Denies: change in phlegm color or hemoptysis GI: Reports: constipation; Denies: abdominal pain, nausea, vomiting, diarrhea, hematochezia or melena : Denies: flank pain, urinary frequency or hematuria Musc: Denies: back pain, joint swelling or joint redness Skin/Breast: Denies: rash, sores or new lesions Neuro: Denies: headache(s), numbness in extremities, weakness in extremities, dizziness, confusion or seizure-like activity Endo: Denies: polyuria or polydipsia Ahmet/Lymph: Denies: easy bleeding or purpura All/Imm: Denies: urticaria, throat swelling or tongue swelling Medications/Allergies Home Medications Medication Instructions Recorded Confirmed Last Taken Type warfarin 1 mg tablet 1 mg PO DAILY tab 03/13/19 09/03/20 09/02/20 History albuterol sulfate 2.5 mg INHALATION Q4H PRN 03/21/19 09/03/20 Unknown History ascorbic acid (vitamin C) 1,000 mg 1,000 mg PO DAILY tab 03/21/19 09/03/20 09/02/20 History tablet,extended release diphenhydramine HCl 25 mg capsule 50 mg PO BEDTIME PRN cap 03/21/19 09/03/20 Unknown History ferrous sulfate 325 mg (65 mg 325 mg PO DAILY 03/21/19 09/03/20 09/02/20 History iron) tablet magnesium oxide 400 mg PO DAILY 03/21/19 09/03/20 09/02/20 History methenamine mandelate 1 gram tablet 1 gm PO BID tab 03/21/19 09/03/20 Unknown History montelukast 10 mg tablet 10 mg PO DAILY tab 03/21/19 09/03/20 09/02/20 History potassium 99 mg tablet 99 mg PO DAILY tab 03/21/19 09/03/20 09/02/20 History prochlorperazine maleate 10 mg 10 mg PO Q6H PRN 03/21/19 09/03/20 Unknown History tablet pseudoephedrine HCl 60 mg tablet 30 mg PO BID tab 03/21/19 09/03/20 09/03/20 History sertraline 100 mg tablet 150 mg PO DAILY tab 03/21/19 09/03/20 09/02/20 History tizanidine 4 mg capsule 4 mg PO BID PRN 03/21/19 09/03/20 Unknown History vitamin B complex 1 tab PO DAILY 03/21/19 09/03/20 09/02/20 History warfarin 4 mg tablet 4 mg PO DIRECTED tab 03/21/19 09/03/20 09/02/20 History zinc gluconate 100 mg tablet 100 mg PO DAILY 03/21/19 09/03/20 09/02/20 History gentamicin 0.1 % topical ointment 1 applic TOPICAL TID #30 gm 04/10/19 09/03/20 Unknown Rx budesonide 0.5 mg/2 mL suspension 0.5 mg INHALATION BID 60 Days #240 04/24/19 09/03/20 Unknown Rx for nebulization ml prednisone 10 mg tablet 10 mg PO DAILY PRN tab 06/08/19 09/03/20 Unknown History levothyroxine 125 mcg tablet 62.5 mcg PO DAILY tab 07/02/19 09/03/20 09/02/20 History fluticasone propionate 100 1 inh INHALATION BID 07/24/19 09/03/20 Unknown History mcg/actuation blister powder for inhalation cyclobenzaprine 10 mg tablet 10 mg PO BID PRN #60 tab 09/10/19 09/03/20 Unknown Rx Wheel Chair Repairs #1 ea 11/06/19 09/03/20 Unknown Rx clonazepam 0.5 mg tablet 0.5 mg PO TID PRN #90 tab 03/11/20 09/03/20 Unknown Rx baclofen 10 mg tablet 10 mg PO .COMPLEX PRN #240 tab 04/16/20 09/03/20 09/03/20 Rx fluconazole 150 mg tablet 150 mg PO Q3D PRN tab 06/11/20 09/03/20 09/01/20 History ipratropium bromide 17 1 puff INHALATION QID PRN 06/11/20 09/03/20 Unknown History mcg/actuation HFA aerosol inhaler sumatriptan succinate 50 mg tablet 50 mg PO DAILY PRN tab 06/11/20 09/03/20 Unknown History Lyrica 100 mg PO BID 09/03/20 09/03/20 09/03/20 History cephalexin 500 mg PO QID 09/03/20 09/03/20 09/03/20 History fluoride (sodium) 1 mg PO DAILY 09/03/20 09/03/20 09/03/20 History guaifenesin [Mucinex] 600 mg PO Q4H PRN 09/03/20 09/03/20 09/03/20 History methylphenidate HCl 20 mg PO TID PRN 09/03/20 09/03/20 Unknown History morphine 15 mg PO Q12H 09/03/20 09/03/20 09/03/20 History oxycodone 10 mg PO QID PRN 09/03/20 09/03/20 Unknown History Allergies Allergy/AdvReac Type Severity Reaction Status Date / Time erythromycin base Allergy Unknown Verified 06/11/20 15:30 interferon beta-1b Allergy Unknown Verified 06/11/20 15:30 [From Betaseron] lorazepam [From Ativan] Allergy Unknown Verified 06/11/20 15:30 PFSH Acute PFSH: Medical History [place] disease Antiphospholipid syndrome AVN of femur Bone infarction of lower extremity High risk medication use Hx of deep venous thrombosis Hx of pulmonary embolus Immunization counseling Inflammatory arthritis Multiple sclerosis Neuralgia and neuritis, unspecified Positive JARRED (antinuclear antibody) Pulmonary embolism Recurrent UTI Systemic lupus erythematosus, unspecified Wheelchair bound Surgical History H/O chest tube placement History of bone marrow biopsy Hx of cholecystectomy Family History Denies family history of Rheumatoid arthritis Lupus Social History Smoking and tobacco status: unknown if ever smoked Alcohol intake: former Caregiver/support person: Yes () Lives independently: Yes Household members: spouse Marital status: Current occupational status: disabled History of recent travel: No Current gender identity: Female Vitals/I&O/Wt Last Vital Signs Temp 98.6 F 09/03/20 16:22 Pulse 90 09/03/20 19:02 Resp 18 09/03/20 19:02 BP 97/52 09/03/20 19:02 Pulse Ox 95 09/03/20 19:02 09/03/20 09/03/20 09/03/20 06:59 14:59 22:59 Intake Total 1350 / 1350 Balance 1350 / 1350 Weight last 48 hrs Weight 77.111 kg Physical Exam Narrative: EXAM NARRATIVE: Accompanied by in the room. Const: COMMON NORMALS: no acute distress and patient oriented x3 OTHER: BiPAP on HENMT: COMMON NORMALS: oropharynx normal Neck/C-Spine: COMMON NORMALS: no JVD Resp: COMMON NORMALS: normal respiratory effort and clear to auscultation bilaterally AUSCULTATION: clear to auscultation bilaterally Cardio: COMMON NORMALS: no JVD, regular rhythm, S1 normal heart sound present, S2 normal heart sound present and No murmurs present (Cardio) RHYTHM: regular rhythm HEART SOUNDS: S1 normal heart sound present and S2 normal heart sound present GI: COMMON NORMALS: Normal to inspection, nondistended, normoactive bowel sounds present, Soft to palpation and non-tender PALPATION: Yes Soft to palpation Back/Pelvis: OTHER: Not examined due to resp fail, with known chronic wounds Extremity: COMMON NORMALS: no joint enlargement OTHER: Paralysis LE and RUE Neuro: COMMON NORMALS: patient oriented x3 and moves all extremities Skin: COMMON NORMALS: no rashes or lesions noted OTHER: Known lesions/pressure sores on buttock, sacrum. Small burn from ice pack on medial L knee 1.5x1.5 CM Data : 09/03/20 16:23 09/03/20 16:23 Micro: Microbiology 09/03/20 17:11 Blood Culture - Preliminary Blood SPECIMEN COLLECTED 09/03/20 17:09 Blood Culture - Preliminary Blood SPECIMEN COLLECTED A&P Assessment and plan (1) Acute respiratory distress: Acute hypoxic respiratory failure. Requiring 100% oxygen via NRB by EMS. Then BiPAP support. Extensive mucus plugging on the left side. Continue oxygen support. Becoming hypotensive on BiPAP, alleviated after return to oxygen mask. Currently down to 12 L, saturation in the high 90s. Continue to wean down as tolerating. Tentative plan for bronchoscopy tomorrow. Discussed with her and her . She understands that would require transient intubation for the procedure, she would not want prolonged life support, does not want to tracheostomy, however, transient intubation is acceptable to her. She understands that we may not know whether there may be difficulty with extubation following the procedure. Expect further discussion with pulmonology tomorrow. Continue empiric Zosyn, vancomycin. Add Mucomyst, continue Mucinex, duo nebs. Inhaled budesonide. Discussed with her and her also addition of steroid IV, Solu-Medrol. Blood cultures were requested. We will hold off on sputum cultures in anticipation of bronchoscopy tomorrow which will likely give much better yield given her profound baseline weakness. Status: Acute (2) Mucus plugging of bronchi: As above. does report some history of dysphagia, issues with aspiration in the past. Will be n.p.o. currently due to respiratory failure. Will ask speech therapy to assess subsequently. Status: Acute (3) Hypotension: Hypotension in ER, miniature pressure down to low 60s, blood pressure usually running soft in the high 90s-100 and teens per recently. Previously in the 90s to 100s. Takes pseudoephedrine at home. Continue. Blood pressure improving with transition back to oxygen mask currently at 12 L, saturation in the high 90s, wean down as tolerated. She and her understand in case of worsening respiratory status may need to resume BiPAP support. History of adrenal insufficiency. Steroid as above. Status: Acute Additional A&P Information End-stage MS with paralysis of the lower extremities, right upper extremity. Mostly stays up in the chair. Baclofen, Klonopin, Lyrica, methylphenidate, oxycodone as needed, monitor mental status. Chronic/recurrent pressure ulcers of buttock/lower back. Continue wound care Suprapubic catheter: Last changed 1/2 weeks ago. Recent UTI: At home on Keflex for urinary tract infection. For now hold off given other antibiotics on board. History of VTE: INR therapeutic. Continue warfarin. Depression: Continue sertraline Other chronic medical problems noted. Attestations Medical Necessity Statement*: Admission of over 2 midnights is going to be needed for assessment management of acute hypoxic respiratory failure, extensive mucus plugging in a lady with triplegia, end-stage MS, hypotension, and number of concomitant medical comorbidities. Coding Level of Care Code Acute Executive Kitchen Manager for delfina Mccarthy Diagnoses Acute respiratory distress R06.03 Mucus plugging of bronchi T17.500A Hypotension I95.9
[2020-09-03] MEDS: baclofen 10 mg Tablet PO (20:14)
[2020-09-03] MEDS: pantoprazole DR 40 mg Tablet PO (20:14)
[2020-09-03] MEDS: oxyCODONE 5 mg IR Tab/Cap 10 MG PO (20:21)
[2020-09-03] MEDS: morphine ER (12 HR) 15 mg Tablet PO (20:49)
[2020-09-03] MEDS: acetylcysteine 200 mg/mL SDV 4 mL INHALATION (21:07)
--- NOTE | 2020-09-03 21:43 | PC.NURSE ---
WOUND NOTE brought wound supplies from home. Pt wounds cleaned every 2-3 days (per ). wounds cleaned with warm water and NS. Adaptive dressing applied to 3 spots. Skin not covered in dressings was covered with barrier cream. Pt and edcated on the use of barrier cream instead of otero butter cream.
[2020-09-03] MEDS: guaiFENesin 600 mg Tablet PO (21:51)
--- NOTE | 2020-09-03 22:25 | ECG_ITS ---
[facility] Test Date: 2020-09-03 Pat Name: Deborah Viramontes Department: Room: ICU12 Gender: Female Account Review Specialist: : [id number] Requested By: Bobby Mills Order Number: [id number] Mita MD: Helene Cortez M.D. Measurements Intervals [place] Rate: 80 P: 50 WI: 134 QRS: 5 QRSD: 94 T: -21 QT: 403 QTc: 465 Interpretive Statements SINUS RHYTHM Compared to ECG 09/03/2020 19:24:55 No significant changes Electronically Signed On 09-05-2020 6:39:37 CDT by Helene Cortez M.D. [id number]
[2020-09-03 23:00] LABS: Troponin 5 6HR 51.26 ng/L (0-10); Troponin 5 6HR Delta 2.26 ng/L (0-12)
[2020-09-04] VITALS (39 sets, daily range): BP systolic 72–101; BP diastolic 47–65; PULSE 69–97; RESP 13–31; TEMP 36.4–36.9; O2SAT 93–100
--- NOTE | 2020-09-04 00:39 | PC.NURSE ---
PT called. Was concerned about INR being 2.33. stated that Dr. Miranda has her INR range at 2.5-3 and it has been that for several years. Nurse explained that it is currently , so warfarin will be given later and information about INR will be passed along to next shift.
[2020-09-04] MEDS: piperacillin-tazobactam 3.375 GM in sodium chloride 0.9% (plus) 50 ML IV ×2 (00:42→09:46)
[2020-09-04] MEDS: vancomycin 1,000 MG in sodium chloride 0.9% 250 ML 250 MG IV ×2 (00:43→09:27)
[2020-09-04] MEDS: sodium chloride 0.9% 250 ML IV (00:43)
--- NOTE | 2020-09-04 02:07 | PC.NURSE ---
DR NOTIFIED of pt low BP. MAP of 58. Bolus ordered and given. Dr notified of no change.
[2020-09-04] MEDS: ipratropium-albuterol 3 mL Neb INHALATION ×4 (02:54→21:18)
[2020-09-04] MEDS: acetylcysteine 200 mg/mL SDV 4 mL INHALATION ×2 (02:59→09:26)
[2020-09-04] MEDS: oxyCODONE 5 mg IR Tab/Cap 10 MG PO ×2 (05:09→21:27)
[2020-09-04 06:07] LABS: Basophils % 0.5 %; Eosinophils % 0.3 %; Hematocrit 42.6 % (37.0-47.0); Hemoglobin 13.2 g/dL (11.5-15.3); Lymphocytes # 0.7 10^3/uL (0.8-4.8); Lymphocytes % 9.6 %; Mean Corpuscular Hemoglobin 29.2 pg (28.0-34.0); Mean Corpuscular Volume 94.2 fL (81-99); Monocytes # 0.5 10^3/uL (0.2-0.9); Monocytes % 5.9 %; Neutrophils # 6.37 10^3/uL (1.8-7.7); Neutrophils % 83.4 %; Nucleated Red Blood Cells % 0 %; Platelet Count 86 10^3/cmm (130-400); Red Blood Count 4.52 10^6/uL (4.1-5.3); White Blood Count 7.6 10^3/uL (4.0-10.0)
[2020-09-04 06:21] LABS: Alanine Aminotransferase 8 U/L (0-33); Albumin Level 2.5 g/dL (3.5-5.2); Alkaline Phosphatase 111 IU/L (35-105); Anion Gap 12.8 (5-19); Aspartate Amino Transferase 15 U/L (0-32); Blood Urea Nitrogen 5 mg/dL (6-20); Calcium 8.3 mg/dL (8.5-10.5); Carbon Dioxide 24 mmol/L (22-29); Chloride 108 mmol/L (98-107); Globulin 2.7 g/dL (1.3-4.6); Glomerular Filtration Rate 826.8 mL/min (90-130); Glucose 113 mg/dL (65-115); Osmolality Calculated 290 mOsm/kg (285-295); Potassium 3.8 mmol/L (3.5-5.1); Sodium 141 mmol/L (136-145); Total Bilirubin 0.3 mg/dL (0.15-1.2); Total Protein 5.2 g/dL (6.6-8.7)
--- NOTE | 2020-09-04 08:59 | PC.CHAP ---
Pastoral Care Encounter/Spiritual Assessment Type of Contact [] Declined putter in visit [] Patient/Family/Request visit [] Outpatient visit [] Follow-up visit [] Physician referral [] Code/Alert [x] Routine visit [] Staff referral [] Actively dying [x] Patient sleeping [] Family support [] [] Out of room [] Palliative care [] [] Receiving care in room [] Pre-surgical visit [] Trauma [] Long length of stay [x] ICU visit [] Other: Relational/Emotional Strength [] Patient feels connected with others/family/visitors/staff [] Distress [] Loneliness/isolation [] Abandonment Spirituality of Patient [] Person of Shefali [] Attends Pentecostal of their Shefali [] Believes in Prayer [] Reads Bible or Sabianist materials [] There are Spiritual issues to be addressed Campus Police Officer Interventions [x] Prayer [] Active listening [] Non-anxious presence [] Spiritual/emotional support [] Crisis/trauma care [] Spiritual counseling [] Bereavement support [] Provided bereavement packet [] Provided Bible/devotional materials [] Provided toy/stuffed animal, coloring book to patient or family member [] Provided Communion [] Anointing/[place] [] Salvation [x] Completed spiritual assessment [] Other: Impact on Illness or Injury [] Angry [] Fearful [] Anxious [] Often cries [] Exhaustion [] Unable to work [] Unable to attend jain [] Unable to walk/stand [] Unable to read [] Unable to drive [] Unable to eat/drink [] Unable to sleep [] Unable to be with family [] Patient intubated [] Other: Summary Time spent with patient
[2020-09-04] MEDS: levothyroxine 125 mcg Tablet 62.5 MCG PO (09:20)
[2020-09-04] MEDS: baclofen 10 mg Tablet PO ×3 (09:20→20:11)
[2020-09-04] MEDS: montelukast sodium 10 mg Tablet PO (09:22)
[2020-09-04] MEDS: sertraline 100 mg Tablet 150 MG PO (09:23)
[2020-09-04] MEDS: pregabalin 100 mg Capsule PO ×3 (09:23→22:02)
[2020-09-04] MEDS: budesonide 0.5 mg/2 mL Neb INHALATION ×2 (09:25→21:18)
--- NOTE | 2020-09-04 09:36 | PM.PN ---
Subjective Subjective: Interval history: She is feeling better. She coughed up a few thick secretions overnight. Vitals/I&O/Wt Last Vital Signs Temp 98.6 F 09/03/20 16:22 Pulse 77 09/04/20 09:20 Resp 17 09/04/20 09:20 BP 88/60 09/04/20 05:00 Pulse Ox 94 09/04/20 09:20 09/03/20 09/04/20 09/04/20 22:59 06:59 14:59 Intake Total 1350 / 1350 1050 / 2400 Output Total 625 / 625 Balance 1350 / 1350 425 / 1775 Weight last 48 hrs Weight 77.111 kg Physical Exam Narrative: EXAM NARRATIVE: Accompanied by in the room. Const: COMMON NORMALS: no acute distress and patient oriented x3 OTHER: BiPAP on HENMT: COMMON NORMALS: oropharynx normal Neck/C-Spine: COMMON NORMALS: no JVD Resp: COMMON NORMALS: normal respiratory effort AUSCULTATION: crackles Laterality: left Cardio: COMMON NORMALS: no JVD, regular rhythm, S1 normal heart sound present, S2 normal heart sound present and No murmurs present (Cardio) RHYTHM: regular rhythm HEART SOUNDS: S1 normal heart sound present and S2 normal heart sound present GI: COMMON NORMALS: Normal to inspection, nondistended, normoactive bowel sounds present, Soft to palpation and non-tender PALPATION: Yes Soft to palpation Extremity: COMMON NORMALS: no joint enlargement OTHER: Paralysis LE and RUE Neuro: COMMON NORMALS: patient oriented x3 and moves all extremities Data : 09/04/20 05:25 09/04/20 05:25 Micro: Microbiology 09/03/20 17:11 Blood Culture - Preliminary Blood SPECIMEN COLLECTED 09/03/20 17:09 Blood Culture - Preliminary Blood SPECIMEN COLLECTED A&P Assessment and plan (1) Acute respiratory distress: She coughed up some thick secretions overnight with Mucomyst, Mucinex, breathing treatments, feels better. Her condition has been improving, down to 2 L on oxygen requirement this morning. Discussed with her and with pulmonology. Repeat chest x-ray this morning. Thrombocytopenia. Stop Zosyn, changed to cefepime. Continue empiric, vancomycin. Mucomyst, continue Mucinex, duo nebs. Inhaled budesonide. Cut down Solu-Medrol dose. Blood cultures were requested. Sputum cultures. Status: Acute (2) Mucus plugging of bronchi: As above. does report some history of dysphagia, issues with aspiration in the past. Will be n.p.o. currently due to respiratory failure. Will ask speech therapy to assess subsequently. Status: Acute (3) Hypotension: Blood pressures transiently soft overnight into the 70s, responded to small boluses of fluid. This morning systolic blood pressure 85. She states 90-100 systolic is normal for her. States she was previously tested for adrenal sufficiency with ACTH stimulation and the tests were negative. Status: Acute Additional A&P Information Thrombocytopenia: Noted platelet decreased this morning to 86,000. Monitor in the setting of anticoagulation. Stop Zosyn. Change to cefepime. End-stage MS with paralysis of the lower extremities, right upper extremity. Mostly stays up in the chair. Baclofen, Klonopin, Lyrica, methylphenidate, oxycodone as needed, monitor mental status. Chronic/recurrent pressure ulcers of buttock/lower back. Continue wound care Suprapubic catheter: Last changed 1/2 weeks ago. Recent UTI: At home on Keflex for urinary tract infection. For now hold off given other antibiotics on board. History of VTE: INR therapeutic. Continue warfarin. Depression: Continue sertraline Other chronic medical problems noted. Attestations Medical Necessity Statement*: , Severe mucous plugging in the setting of end-stage MS. Coding Level of Care Code Acute Manager Financial Reporting for Betty Mccarthy Diagnoses Acute respiratory distress R06.03 Mucus plugging of bronchi T17.500A Hypotension I95.9
--- NOTE | 2020-09-04 09:38 | XR_ITS ---
WS: [id number] Portable AP semiupright chest, 09/04/2020 Clinical Data: hypoxia Comparison: Portable chest, 09/03/2020 Findings: The opacification in the retrocardiac region shows partial clearing. Again this may represe nt atelectasis and effusion. There is still minimal patchy opacity at the right costophrenic angle an d the right midlung. The heart remains normal. Monitor leads are on the chest wall. XR/XR chest 1V portable [id number] Impression: Slight improvement in pulmonary opacity in retrocardiac region.
[2020-09-04] MEDS: morphine ER (12 HR) 15 mg Tablet PO ×2 (09:39→20:11)
[2020-09-04] MEDS: cefepime 1,000 MG in sodium chloride 0.9% (plus) 50 ML 100 MG IV ×2 (11:31→22:38)
[2020-09-04] MEDS: warfarin 2 mg Tablet PO (14:37)
[2020-09-04] MEDS: acetylcysteine 200 mg/mL SDV 4 mL 100 MG INHALATION ×2 (15:00→21:19)
--- NOTE | 2020-09-04 16:34 | PC.NUTR ---
Nutrition assessment completed due to presence of St 2 pressure injury. Received notification from [employer] ATTORNEY that diet to be advanced to Regular with supplement, and that pt may have preferences on supplement flavors. Spoke with pt, who is willing to try chocolate or butter pecan. Received verbal order from Dr. Alonzo to enter Regular diet, straws for liquids, with ian/butter pecan Ensure Plus with meals, which this RD has done at this time. Recommend monitor diet tolerance, including chewing/swallowing, and provide softer foods as needed per [employer] recommendation. See full RD assessment for further details.
--- NOTE | 2020-09-04 16:49 | P.CONIM_ITS ---
Providers/Reason For Consult Consulting Physician/Specialty*: Pulmonary critical care medicine Reason for Consult*: Mucous plugging of the left lower lobe Attending Physician: Stu Alonzo Primary Care Provider: Jarod Cherry MD History of Present Illness History of Present Illness Deborah Viramontes is a 54 year old unfortunate woman whom I had seen in the office in March 2019. 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 She was diagnosed with multiple sclerosis in 2006 and since then has experienced significant progression of symptoms. At this point the patient is usually electrical wheelchair-bound, the only significant mobility she has is of her left upper extremity. The patient also has a complicated past medical history. She has suffered from DVT and PE, pneumothoraces requiring pleurodesis. A CT scan of her chest from 2010 which did not reveal any significant abnormality. A pulmonary function test from 2015 revealed severe restrictive lung disease. The restriction is secondary to profound neuromuscular weakness in the setting of multiple sclerosis. The patient also has history of asthma. Unfortunately the patient does get episodes of exacerbation at this point at which time she uses her DuoNeb nebulizer 2-3 times a day. I had prescribed the patient BiPAP as outpatient which she has been using. The patient presented to the hospital yesterday with respiratory distress and on CT scan was found to have left lower lobe atelectasis due to mucous plugging. The patient was put on BiPAP. This morning, the patient was able to cough off a significant amount of thick sputum. A chest x-ray revealed improved aeration of the left lung as well as less volume loss. The patient is at her usual state of health at this time. She is not even using any oxygen at this point. Her was present at bedside. The patient has significant difficulty with hearing because of her MS. Review of Systems Narrative: The review of system was limited because of the patient's difficulty with hearing. Meds/Allergies Home Medications and Allergies Home Medications Medication Instructions Recorded Confirmed Last Taken Type warfarin 1 mg tablet 1 mg PO DAILY tab 03/13/19 09/03/20 09/02/20 History albuterol sulfate 2.5 mg INHALATION Q4H PRN 03/21/19 09/03/20 Unknown History ascorbic acid (vitamin C) 1,000 mg 1,000 mg PO DAILY tab 03/21/19 09/03/20 09/02/20 History tablet,extended release diphenhydramine HCl 25 mg capsule 50 mg PO BEDTIME PRN cap 03/21/19 09/03/20 Unknown History ferrous sulfate 325 mg (65 mg 325 mg PO DAILY 03/21/19 09/03/20 09/02/20 History iron) tablet magnesium oxide 400 mg PO DAILY 03/21/19 09/03/20 09/02/20 History methenamine mandelate 1 gram tablet 1 gm PO BID tab 03/21/19 09/03/20 Unknown History montelukast 10 mg tablet 10 mg PO DAILY tab 03/21/19 09/03/20 09/02/20 History potassium 99 mg tablet 99 mg PO DAILY tab 03/21/19 09/03/20 09/02/20 History prochlorperazine maleate 10 mg 10 mg PO Q6H PRN 03/21/19 09/03/20 Unknown History tablet pseudoephedrine HCl 60 mg tablet 30 mg PO BID tab 03/21/19 09/03/20 09/03/20 History sertraline 100 mg tablet 150 mg PO DAILY tab 03/21/19 09/03/20 09/02/20 History tizanidine 4 mg capsule 4 mg PO BID PRN 03/21/19 09/03/20 Unknown History vitamin B complex 1 tab PO DAILY 03/21/19 09/03/20 09/02/20 History warfarin 4 mg tablet 4 mg PO DIRECTED tab 03/21/19 09/03/20 09/02/20 History zinc gluconate 100 mg tablet 100 mg PO DAILY 03/21/19 09/03/20 09/02/20 History gentamicin 0.1 % topical ointment 1 applic TOPICAL TID #30 gm 04/10/19 09/03/20 Unknown Rx budesonide 0.5 mg/2 mL suspension 0.5 mg INHALATION BID 60 Days #240 04/24/19 09/03/20 Unknown Rx for nebulization ml prednisone 10 mg tablet 10 mg PO DAILY PRN tab 06/08/19 09/03/20 Unknown History levothyroxine 125 mcg tablet 62.5 mcg PO DAILY tab 07/02/19 09/03/20 09/02/20 History fluticasone propionate 100 1 inh INHALATION BID 07/24/19 09/03/20 Unknown History mcg/actuation blister powder for inhalation Wheel Chair Repairs #1 ea 11/06/19 09/03/20 Unknown Rx clonazepam 0.5 mg tablet 0.5 mg PO TID PRN #90 tab 03/11/20 09/03/20 Unknown Rx baclofen 10 mg tablet 10 mg PO .COMPLEX PRN #240 tab 04/16/20 09/03/20 09/03/20 Rx fluconazole 150 mg tablet 150 mg PO Q3D PRN tab 06/11/20 09/03/20 09/01/20 History ipratropium bromide 17 1 puff INHALATION QID PRN 06/11/20 09/03/20 Unknown History mcg/actuation HFA aerosol inhaler sumatriptan succinate 50 mg tablet 50 mg PO DAILY PRN tab 06/11/20 09/03/20 Unknown History Lyrica 100 mg PO BID 09/03/20 09/03/20 09/03/20 History cephalexin 500 mg PO QID 09/03/20 09/03/20 09/03/20 History fluoride (sodium) 1 mg PO DAILY 09/03/20 09/03/20 09/03/20 History guaifenesin [Mucinex] 600 mg PO Q4H PRN 09/03/20 09/03/20 09/03/20 History methylphenidate HCl 20 mg PO TID PRN 09/03/20 09/03/20 Unknown History morphine 15 mg PO Q12H 09/03/20 09/03/20 09/03/20 History oxycodone 10 mg PO QID PRN 09/03/20 09/03/20 Unknown History cyclobenzaprine 10 mg tablet 10 mg PO BID PRN #60 tab 09/04/20 Unknown Rx Allergies Allergy/AdvReac Type Severity Reaction Status Date / Time erythromycin base Allergy Unknown Verified 06/11/20 15:30 interferon beta-1b Allergy Unknown Verified 06/11/20 15:30 [From Betaseron] lorazepam [From Ativan] Allergy Unknown Verified 06/11/20 15:30 Current Medications Current Medications Generic Name Dose Route Start Last Admin Trade Name Freq PRN Reason Stop Dose Admin Acetylcysteine 100 mg 09/04/20 15:00 09/04/20 15:00 Acetylcysteine 200 Mg/Ml Sdv 4 Ml INHALATION 100 mg Q6H.RESPIRATORY KALIA Administration Albuterol/Ipratropium 3 ml 09/03/20 21:00 09/04/20 14:59 Ipratropium-Albuterol 3 Ml Neb INHALATION 3 ml Q6H.RESPIRATORY KALIA Administration Baclofen 10 mg 09/03/20 21:00 09/04/20 14:37 Baclofen 10 Mg Tablet PO 10 mg TID KALIA Administration Budesonide 0.5 mg 09/04/20 09:00 09/04/20 09:25 Budesonide 0.5 Mg/2 Ml Neb INHALATION 0.5 mg BID KALIA Administration Guaifenesin 600 mg 09/03/20 19:46 09/03/20 21:51 Guaifenesin 600 Mg Tablet PO 600 mg Q4H PRN Administration Congestion Cefepime HCl 1,000 mg/ Sodium 50 mls @ 100 mls/hr 09/04/20 10:30 09/04/20 12:09 Chloride IV Infused Q12H KALIA Infusion Protocol Levothyroxine Sodium 62.5 mcg 09/04/20 09:00 09/04/20 09:20 Levothyroxine 125 Mcg Tablet PO 62.5 mcg DAILY KALIA Administration Methylprednisolone Sodium Succinate 20 mg 09/04/20 12:00 09/04/20 12:09 Methylprednisolone Sod Succ 40 Mg/Ml Inj IVP Not Given Q8H KALIA Montelukast Sodium 10 mg 09/04/20 09:00 09/04/20 09:22 Montelukast Sodium 10 Mg Tablet PO 10 mg DAILY KALIA Administration Non-Formulary Medication 30 mg 09/04/20 09:00 09/04/20 09:24 Pseudoephedrine Hcl PO Not Given BID KALIA Oxycodone HCl 10 mg 09/03/20 20:07 09/04/20 05:09 Oxycodone 5 Mg Ir Tab/Cap PO 10 mg QID PRN Administration Pain Pantoprazole Sodium 40 mg 09/03/20 20:00 09/03/20 20:[address] 40 Mg Tablet PO 40 mg Q24H KALIA Administration Pregabalin 100 mg 09/04/20 09:00 09/04/20 09:23 Pregabalin 100 Mg Capsule PO 100 mg BID KALIA Administration Sertraline HCl 150 mg 09/04/20 09:00 09/04/20 09:23 Sertraline 100 Mg Tablet PO 150 mg DAILY KALIA Administration Warfarin Sodium 2 mg 09/04/20 14:00 09/04/20 14:37 Warfarin 2 Mg Tablet PO 2 mg [id number] KALIA Administration PFSH Acute PFSH: Medical History [place] disease Antiphospholipid syndrome AVN of femur Bone infarction of lower extremity High risk medication use Hx of deep venous thrombosis Hx of pulmonary embolus Immunization counseling Inflammatory arthritis Multiple sclerosis Neuralgia and neuritis, unspecified Positive JARRED (antinuclear antibody) Pulmonary embolism Recurrent UTI Systemic lupus erythematosus, unspecified Wheelchair bound Surgical History H/O chest tube placement History of bone marrow biopsy Hx of cholecystectomy Family History Denies family history of Rheumatoid arthritis Lupus Social History Smoking and tobacco status: unknown if ever smoked Alcohol intake: former Caregiver/support person: Yes () Lives independently: Yes Household members: spouse Marital status: Current occupational status: disabled History of recent travel: No Current gender identity: Female Vitals/I&O/Wt Last Vital Signs Temp 97.6 F 09/04/20 14:00 Pulse 86 09/04/20 15:08 Resp 16 09/04/20 15:00 BP 89/58 09/04/20 14:00 Pulse Ox 94 09/04/20 15:00 09/04/20 09/04/20 09/04/20 06:59 14:59 22:59 Intake Total 1050 / 2400 300 / 300 Output Total 625 / 625 500 / 500 Balance 425 / 1775 -200 / -200 Weight last 48 hrs Weight 170 lb Physical Exam Narrative: EXAM NARRATIVE: General: Patient is awake alert and oriented, able to answer questions Respiratory: Auscultation: Reduced breath sound in the left hemithorax compared to the right, no wheezing or rhonchi Cardiovascular: Regular rate and rhythm, S1-S2 present, no murmur, mild bilateral peripheral edema Abdomen: Soft, nontender, nondistended, positive bowel sound, suprapubic catheter in place Musculoskeletal: The patient is essentially bedbound Skin: No rash Lymphatic: The axillary and inguinal lymph node groups are not examined Neuro: Patient is able to understand and answer questions, has hearing difficulty, no gross cranial nerve deficit, she is unable to move her lower extremities or right upper extremity Data Micro: Micro: Microbiology 09/04/20 10:00 Gram Stain - Final Sputum - Expector ated Sputum 09/04/20 06:19 MRSA Culture - Fin al Nose 09/03/20 17:11 Blood Culture - Pr eliminary Blood SPECIMEN COLLEC CATE 09/03/20 17:09 Blood Culture - Pr eliminary Blood SPECIMEN COLLE CATE Other Data: Attestation for Other Data: I personally reviewed and interpreted the following: Other data: I have reviewed the patient's laboratory, microbiologic and radiologic data. Please see the HPI for detail A&P Assessment and plan (1) Mucus plugging of bronchi: The patient seems to be doing well after she coughed up thick sputum. We have initiated chest physical therapy with the vest, DuoNeb, Mucomyst and 3% sodium chloride nebulization. I am hoping that she will be able to cough out the retained secretion and I do not have to perform any bronchoscopy. However if that does not turn machine operator to be the case, the patient will need bron choscopic evaluation which could be challenging given her profound muscle weakness as her respiratory status may deteriorate after the bronchoscopy. I have discussed this in detail with the patient and her . We will continue to be conservative. The patient is on broad-spectrum antibiotic. Thank you for the consultation. I will continue to follow the patient. Status: Acute Coding Level of Care Code Acute Batch Mixer Operator for Betty Mccarthy Diagnoses Mucus plugging of bronchi T17.500A
[2020-09-04 16:51] LABS: Platelet Count 103 10^3/cmm (130-400)
[2020-09-04] MEDS: pantoprazole DR 40 mg Tablet PO (20:11)
[2020-09-04] MEDS: baclofen 10 mg Tablet 20 MG PO (22:02)
[2020-09-05] VITALS (51 sets, daily range): BP systolic 86–113; BP diastolic 52–78; PULSE 72–107; RESP 13–35; TEMP 36.8–36.9; O2SAT 93–98
[2020-09-05] MEDS: baclofen 10 mg Tablet PO ×3 (01:16→18:10)
[2020-09-05] MEDS: oxyCODONE 5 mg IR Tab/Cap PO (01:23)
[2020-09-05 02:26] LABS: Vancomycin Trough 16.6 ug/mL (10-15)
[2020-09-05] MEDS: oxyCODONE 5 mg IR Tab/Cap 10 MG PO (03:06)
[2020-09-05] MEDS: ipratropium-albuterol 3 mL Neb INHALATION (03:53)
[2020-09-05] MEDS: acetylcysteine 200 mg/mL SDV 4 mL 100 MG INHALATION (03:53)
[2020-09-05 04:18] LABS: Hemoglobin 12.4 g/dL (11.5-15.3); Lymphocytes # 0.7 10^3/uL (0.8-4.8); Lymphocytes % 7.2 %; Mean Corpuscular HGB Conc 31.8 g/dL (30.0-36.0); Mean Corpuscular Hemoglobin 28.7 pg (28.0-34.0); Mean Corpuscular Volume 90.3 fL (81-99); Mean Platelet Volume 12.5 fL (7.4-10.4); Monocytes # 0.4 10^3/uL (0.2-0.9); Monocytes % 4.1 %; Neutrophils # 8.16 10^3/uL (1.8-7.7); Neutrophils % 88.5 %; Nucleated Red Blood Cells % 0 %; Platelet Count 123 10^3/cmm (130-400); Red Blood Count 4.32 10^6/uL (4.1-5.3); Red Cell Distribution Width 15.9 % (12.1-15.1); White Blood Count 9.2 10^3/uL (4.0-10.0)
[2020-09-05 04:28] LABS: INR 3.23 (0.8-1.2)
[2020-09-05 04:36] LABS: Alanine Aminotransferase 7 U/L (0-33); Albumin Level 2.6 g/dL (3.5-5.2); Alkaline Phosphatase 104 IU/L (35-105); Aspartate Amino Transferase 15 U/L (0-32); Blood Urea Nitrogen 7 mg/dL (6-20); Carbon Dioxide 26 mmol/L (22-29); Chloride 105 mmol/L (98-107); Globulin 2.7 g/dL (1.3-4.6); Glomerular Filtration Rate 129.1 mL/min (90-130); Glucose 134 mg/dL (65-115); Osmolality Calculated 288 mOsm/kg (285-295); Sodium 139 mmol/L (136-145); Total Bilirubin 0.2 mg/dL (0.15-1.2); Total Protein 5.3 g/dL (6.6-8.7)
[2020-09-05] MEDS: cyclobenzaprine 10 mg Tablet PO (07:37)
[2020-09-05] MEDS: morphine ER (12 HR) 15 mg Tablet PO (08:58)
[2020-09-05] MEDS: docusate sodium 100 mg Capsule PO (08:58)
[2020-09-05] MEDS: levothyroxine 125 mcg Tablet 62.5 MCG PO (08:58)
[2020-09-05] MEDS: montelukast sodium 10 mg Tablet PO (08:58)
[2020-09-05] MEDS: pregabalin 100 mg Capsule PO ×2 (08:59→18:11)
[2020-09-05] MEDS: sertraline 100 mg Tablet 150 MG PO (08:59)
--- NOTE | 2020-09-05 09:18 | XR_ITS ---
WS: [id number] Portable AP supine chest, 09/05/2020 Clinical Data: mucus plug Comparison: Portable chest, 09/04/2020 Findings: There is partial clearing of the left lower lobe opacity. Right lung remains clear. The hea rt is normal. No pneumothorax is seen. Monitor leads are on the chest wall. XR/XR chest 1V portable [id number] Impression: Partial clearing of left lower lobe opacity.
[2020-09-05] MEDS: cefepime 1,000 MG in sodium chloride 0.9% (plus) 50 ML 100 MG IV (11:39)
--- NOTE | 2020-09-05 12:04 | P.DS_ITS ---
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, with paralysis of both lower and right upper extremities, currently bed/chair bound with chronic pressure ulcers, history of osteomyelitis with suprapubic catheter which is usually changed every 3 weeks, last change 1.5 weeks ago with recurrent urinary tract infections, currently on active treatment with Keflex for UTI, with reported occasional history of aspiration, with history of VTE, PE, on chronic anticoagulation with reported target INR 3.5 (today 3.23), antiphospholipid syndrome, SLE, history of chronic hypotension, with reported ruled out adrenal insufficiency was admitted for assessment and management due to acute respiratory failure, requiring 100% nonrebreather, transient BiPAP support, with noted extensive mucus plugging in left lung, exacerbated by general weakness, transient encephalopathy secondary to hypoxia, was admitted for treatment inte nsive care unit, weaned off BiPAP support, initially to oxygen mask, then nasal cannula, and then room air with treatment with Mucomyst, nebs, inhaled budesonide was continued, empirically treated with Zosyn, vancomycin, also received transiently IV steroid which was quickly tapered off given rapid improvement. Blood pressures were soft, transiently as low as 70s, but that has improved, and she is in her baseline blood pressures which are 90s-100s systolic. She reported multiple assessments for adrenal insufficiency in the past which were negative declining additional consideration of the condition. Autonomic dysfunction secondary to MS is a possible etiology. Initially bronchoscopy was planned, however, she was somewhat reluctant, and with rapid resolution of symptoms this was not needed. Repeat x-rays are showing continued improvement. She is doing well on room air. She is bothered by muscle spasms this morning. Would like to return home where she will be more comfortable to continue her usual regimen. She will empirically continue on cefdinir and doxycycline to complete the course. 3% sodium chloride nebs are also requested to help reduce recurrence of mucous plugging. She is asked to follow-up with pulmonology in office. Of note antibiotic changed to cefdinir and continued also for urinary tract infection. Currently urine culture is growing gram-negative rods, ID and sensitivity pending and will need to be followed up. Physical Exam Const: COMMON NORMALS: no acute distress and patient oriented x3 GENERAL APPEARANCE: not comfortable (Muscle cramping) OTHER: On RA HENMT: COMMON NORMALS: oropharynx normal Neck/C-Spine: COMMON NORMALS: no JVD Resp: COMMON NORMALS: normal respiratory effort AUSCULTATION: crackles Laterality: left (base, minimal) Cardio: COMMON NORMALS: no JVD, regular rhythm, S1 normal heart sound present, S2 normal heart sound present and No murmurs present (Cardio) RHYTHM: regular rhythm HEART SOUNDS: S1 normal heart sound present and S2 normal heart sound present GI: COMMON NORMALS: Normal to inspection, nondistended, normoactive bowel sounds present, Soft to palpation and non-tender PALPATION: Yes Soft to palpation Extremity: COMMON NORMALS: no joint enlargement OTHER: Paralysis LE and RUE Neuro: COMMON NORMALS: patient oriented x3 Discharge Data Data Completed and Pending: Completed Studies During Hospitalization Category Date Time Status CT chest wo con 7 [id number] Stat Cat Scan 09/03/20 16:48 Completed XR chest 1V bar ble [id number] Routine Exams 09/04/20 09:38 Completed XR chest 1V bar ble [id number] Stat Exams 09/05/20 09:18 Completed XR chest 1V bar ble [id number] Urgent Exams 09/03/20 16:23 Completed Pending at discharge Category Date Time Status Blood Culture Sta t Lab 09/03/20 17:11 Results Complete Blood Co unt w/Auto AM LABS Lab 09/06/20 04:00 Ordered Comprehensive Met abolic Panel AM LA BS Lab 09/06/20 04:00 Ordered Prothrombin Time INR AM LABS Lab 09/06/20 04:00 Ordered Prothrombin Time INR AM LABS Lab 09/07/20 04:00 Ordered Sputum Culture an d Gram Stain Melvai ne Lab 09/04/20 10:00 Results Urine Culture Sta t Lab 09/03/20 16:55 Results Labs from last 24 hours 09/05/20 09/05/20 09/05/20 03:54 03:54 03:54 WBC 9.2 RBC 4.32 Hgb 12.4 Hct 39.0 MCV 90.3 MCH 28.7 MCHC 31.8 RDW 15.9 H Plt Count 123 L MPV 12.5 H Neut % (Auto) 88.5 Lymph % (Auto) 7.2 [place] % (Auto) 4.1 Eos % (Auto) 0.0 Baso % (Auto) 0.0 Neut # (Auto) 8.16 H Lymph # (Auto) 0.7 L [place] # (Auto) 0.4 Eos # (Auto) 0.0 Baso # (Auto) 0.0 Nucleated RBC % (a uto) 0 Nucleated RBCs # 0.0 PT 33.50 H INR 3.23 H Sodium 139 Potassium 4.0 Chloride 105 Carbon Dioxide 26 Anion Gap 12.0 BUN 7 Creatinine 0.5 GFR Calculation 129.1 Glucose 134 H Calculated Osmolal ity 288 Calcium 8.0 L Total Bilirubin 0.2 AST 15 ALT 7 Alkaline Phosphata se 104 Total Protein 5.3 L Albumin 2.6 L Globulin 2.7 Vancomycin Trough SARS-CoV-2 Ag (Rap id) 09/05/20 09/05/20 09/04/20 01:40 00:45 16:37 WBC RBC Hgb Hct MCV MCH MCHC RDW Plt Count 103 L MPV Neut % (Auto) Lymph % (Auto) [place] % (Auto) Eos % (Auto) Baso % (Auto) Neut # (Auto) Lymph # (Auto) [place] # (Auto) Eos # (Auto) Baso # (Auto) Nucleated RBC % (a uto) Nucleated RBCs # PT INR Sodium Potassium Chloride Carbon Dioxide Anion Gap BUN Creatinine GFR Calculation Glucose Calculated Osmolal ity Calcium Total Bilirubin AST ALT Alkaline Phosphata se Total Protein Albumin Globulin Vancomycin Trough 16.6 H Cancelled SARS-CoV-2 Ag (Rap id) 09/03/20 17:15 WBC RBC Hgb Hct MCV MCH MCHC RDW Plt Count MPV Neut % (Auto) Lymph % (Auto) [place] % (Auto) Eos % (Auto) Baso % (Auto) Neut # (Auto) Lymph # (Auto) [place] # (Auto) Eos # (Auto) Baso # (Auto) Nucleated RBC % (a uto) Nucleated RBCs # PT INR Sodium Potassium Chloride Carbon Dioxide Anion Gap BUN Creatinine GFR Calculation Glucose Calculated Osmolal ity Calcium Total Bilirubin AST ALT Alkaline Phosphata se Total Protein Albumin Globulin Vancomycin Trough SARS-CoV-2 Ag (Rap id) Negative Vitals: Last Vital Signs Temp 98.2 F 09/05/20 08:00 Pulse 78 09/05/20 10:30 Resp 14 09/05/20 10:30 BP 113/75 09/05/20 10:30 Pulse Ox 96 09/05/20 10:30 Discharge Plan Discharge Patient Disposition: Home Condition: Stable Prescriptions: New sodium chloride 3 % solution for nebulization 4 ml inhalation Q12H Qty: 750 RF: 0 cefdinir 300 mg capsule 300 mg PO BID 5 Days Qty: 10 RF: 0 doxycycline hyclate 100 mg tablet 100 mg PO BID 5 Days Qty: 10 RF: 0 Narcan 4 mg/actuation spray,non-aerosol 1 spray intranasal Q2M PRN (Reason: opioid overdose) Qty: 2 RF: 0 Continued gentamicin 0.1 % ointment 1 applic TOPICAL TID Qty: 30 RF: 0 methenamine mandelate 1 gram tablet 1 gm PO BID RF: 0 Hold Instructions: Home Medication placed on hold at Doctor's office sertraline 100 mg tablet 150 mg PO DAILY RF: 0 ferrous sulfate [FeroSul] 325 mg (65 mg iron) tablet 325 mg PO DAILY RF: 0 Complex B-100 Tablet Extended Release 1 tab PO DAILY RF: 0 pseudoephedrine HCl 60 mg tablet 30 mg PO BID RF: 0 zinc gluconate 100 mg tablet 100 mg PO DAILY RF: 0 magnesium oxide 400 mg magnesium capsule 400 mg PO DAILY RF: 0 tizanidine 4 mg capsule 4 mg PO BID PRN (Reason: Muscle Spasm) RF: 0 prochlorperazine maleate [Compazine] 10 mg tablet 10 mg PO Q6H PRN (Reason: Nausea) RF: 0 albuterol sulfate 2.5 mg /3 mL (0.083 %) solution for nebulization 2.5 mg INHALATION Q4H PRN (Reason: Shortness Of Breath) RF: 0 warfarin 4 mg tablet 4 mg PO DIRECTED RF: 0 montelukast [Singulair] 10 mg tablet 10 mg PO DAILY RF: 0 diphenhydramine HCl [Allergy (diphenhydramine)] 25 mg capsule 50 mg PO BEDTIME PRN (Reason: Sleep) RF: 0 ascorbic acid (vitamin C) 1,000 mg tablet extended release 1,000 mg PO DAILY RF: 0 potassium 99 mg tablet 99 mg PO DAILY RF: 0 levothyroxine [Synthroid] 125 mcg tablet 62.5 mcg PO DAILY RF: 0 prednisone 10 mg tablet 10 mg PO DAILY PRN (Reason: Pain) RF: 0 fluconazole 150 mg tablet 150 mg PO Q3D PRN (Reason: Infection) RF: 0 sumatriptan succinate [Imitrex] 50 mg tablet 50 mg PO DAILY PRN (Reason: Migraine Headache) RF: 0 budesonide [Pulmicort] 0.5 mg/2 mL suspension for nebulization 0.5 mg INHALATION BID 60 Days Qty: 240 RF: 3 Flovent Diskus 100 mcg/actuation blister with device 1 inh INHALATION BID RF: 0 Atrovent HFA 17 mcg/actuation HFA aerosol inhaler 1 puff INHALATION QID PRN (Reason: Shortness Of Breath) RF: 0 warfarin 1 mg tablet 1 mg PO DAILY RF: 0 (DME) Wheel Chair Repairs See Rx Instructions .Route .MEDSUPPLY Qty: 1 RF: 0 clonazepam 0.5 mg tablet 0.5 mg PO TID PRN (Reason: anxiety) Qty: 90 RF: 5 baclofen 10 mg tablet 10 mg PO .COMPLEX PRN (Reason: Multuiple Sclerosis) Qty: 240 RF: 4 cyclobenzaprine 10 mg tablet 10 mg PO BID PRN (Reason: muscle spasm) Qty: 60 RF: 5 fluoride (sodium) 1 mg (2.2 mg sod. fluoride) tablet,chewable 1 mg PO DAILY RF: 0 Mucinex 600 mg Tablet Extended Release 12hr 600 mg PO Q4H PRN (Reason: Congestion) RF: 0 methylphenidate HCl 20 mg tablet 20 mg PO TID PRN (Reason: sleepiness) RF: 0 morphine 15 mg tablet extended release 15 mg PO Q12H RF: 0 Lyrica 100 mg capsule 100 mg PO BID RF: 0 oxycodone 10 mg tablet 10 mg PO QID PRN (Reason: Pain) RF: 0 Discontinued cephalexin 500 mg Capsule 500 mg PO QID RF: 0 Discharge Orders: Discharge Order (Routine); Ordered 09/05/20 Ordered By: Stu Alonzo Referrals: Jarod Cherry MD [Primary Care Provider] - 4-7 days Arthur Rojas MD [Physician] - 2 weeks Activity Restrictions/Additional Instructions: Continue flutter valve. Maintain aspiration precautions. Use your nebulizer to administer 3% nebulization with saline solution to prevent recollection of mucous plugging. Please continue antibiotic therapy. Please note also that there is some growth on urine culture, currently showing gram-negative rods. This may take some time to resolve, and you may be contacted in case and change is needed to the antibiotic regimen. Please measure blood pressure 3 times daily, record values to bring to your appointment with your primary provider. Please exercise caution with pain medication and muscle relaxers which may decrease her to dangerous levels. Please also watch out for respiratory depression. If blood pressure is 80/50 or less, hold any pain medication or muscle relaxer. If you notice lethargy, breathing rate less than 6 breaths/min, please administer naloxone. Discharge Attestations Time Spent in Discharge Care*: less than 30 min Quality Metrics Clinical Quality Measures During this hospital stay, did patient experience: None Coding Level of Care Code Acute Chg FW DC note Diagnoses Mucus plugging of bronchi T17.500A Acute respiratory distress R06.03 Recurrent UTI N39.0 Multiple sclerosis G35 Hypotension I95.9
--- NOTE | 2020-09-05 14:04 | PC.NURSE ---
Shift SUmmary: Uneventful shift patient rested in bed. Refused significant position changes, but did tolerate slight movements. Dressing changes provided to posterior.
--- NOTE | 2020-09-05 14:06 | PC.NURSE ---
Recieved discharge orders. activity instructions, medication education, and follow up appointment education provided. Dr saini came to bedside to further discuss discharge. Delay in leaving facility as the patient's needs to go home and get specialty wheelchair.
--- NOTE | 2020-09-05 18:16 | PC.NURSE ---
Patient's has arrived and is able take patient home. NUrse discontinued IV in left wrist and assisted patient and family out to vehicle via wheelchair. Discharge education and paperwork already completed.
== END 2020-09-05 19:24 | disposition home health service (06) | DRG 189 ==
LOC: ER 18:31 → ICU 18:34
PROVIDERS: Admitting Provider Internal Medicine; Emergency Provider Family Medicine; PCP Family Medicine; Visit Provider Internal Medicine
DX: J96.01 Acute respiratory failure with hypoxia (principal); T83.518A Infection and inflammatory reaction due to other urinary catheter, initial encounter; E27.1 Primary adrenocortical insufficiency; D68.61 Antiphospholipid syndrome; T17.590A Other foreign object in bronchus causing asphyxiation, initial encounter; G93.40 Encephalopathy, unspecified; G35 Multiple sclerosis; L89.302 Pressure ulcer of unspecified buttock, stage 2; Y73.1 Therapeutic (nonsurgical) and rehabilitative gastroenterology and urology devices associated with adverse incidents; Z86.718 Personal history of other venous thrombosis and embolism; Z86.711 Personal history of pulmonary embolism; M32.9 Systemic lupus erythematosus, unspecified; I95.9 Hypotension, unspecified; Z87.440 Personal history of urinary (tract) infections; Z99.3 Dependence on wheelchair; X58.XXXA Exposure to other specified factors, initial encounter; D69.6 Thrombocytopenia, unspecified; J45.909 Unspecified asthma, uncomplicated; Z79.891 Long term (current) use of opiate analgesic; Z79.01 Long term (current) use of anticoagulants; Z79.51 Long term (current) use of inhaled steroids
CPT/HCPCS: 36415; 36600; 71045; 71250; 80053; 80202; 81001; 82550; 82805; 83605; 83880; 84484; 85025; 85049; 85610; 87040; 87070; 87077; 87086; 87186; 87205; 87426; 87641; 92610; 93005; 94640; 94660; 94664; 96365; 96367; 99291; J0692; J0696; J2543; J2920; J3370; J7030; J7050; J7608; J7626

== ENCOUNTER 2020-11-26 12:08 | Outpatient (CLI) | payer MEDICARE, OTHER, SELFPAY | END 2020-11-26 12:09 | disposition home or self-care (01) | LOC: LAB 12:18 | PROVIDERS: PCP Family Medicine; Visit Provider Urology | DX: R82.90 Unspecified abnormal findings in urine (principal) | CPT/HCPCS: 87077; 87086; 87186 ==

== ENCOUNTER 2020-12-10 20:18 | Inpatient (IN) | payer MEDICARE, OTHER, SELFPAY ==
[2020-12-10 21:08] VITALS: BP 90/55; PULSE 96; RESP 19; TEMP 36.9; O2SAT 94
--- NOTE | 2020-12-10 22:33 | PM.HP ---
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 Patient was recently tx with oral Levaquin however culture results showed resistant to Levaquin. Patient continued to have ongoing weakness, soft bp and suprapubic pain. Catheter was changed 1 week prior. Laboratory work up on arrival showed 7.2, hemoglobin of 12.1, hematocrit of 38.2 and platelet count of 147. Sodium of 136, potassium of 3.7, chloride 101, bicarb of 26, BUN of 7 and creatinine of 0.2. Lactic acid of 0.7 and procalcitonin of 0.04. UA repeated was positive for 2+ blood, nitrates, and 1+ leukocyte esterase, 25-40 WBC and 0-4 squamous epithelial cells. patient was started on premixin. Review of Systems General: Reports: 10 or more systems reviewed and unremarkable except in HPI and below Medications/Allergies Home Medications Medication Instructions Recorded Confirmed Last Taken Type albuterol sulfate 2.5 mg INHALATION Q4H PRN 03/21/19 12/10/20 Unknown History ascorbic acid (vitamin C) 1,000 mg 500 mg PO 1000 tab 03/21/19 12/10/20 09/02/20 History tablet,extended release magnesium oxide 400 mg PO 1000 03/21/19 12/10/20 12/10/20 10:00 History montelukast 10 mg tablet 10 mg PO 1800 tab 03/21/19 12/10/20 12/10/20 18:00 History potassium 99 mg tablet 99 mg PO 0200 tab 03/21/19 12/10/20 12/10/20 02:00 History pseudoephedrine HCl 60 mg tablet 30 mg PO Q12H tab 03/21/19 12/10/20 12/10/20 18:00 History sertraline 100 mg tablet 150 mg PO 0200 tab 03/21/19 12/10/20 12/10/20 02:00 History tizanidine 4 mg capsule 4 mg PO Q12H PRN 03/21/19 12/10/20 Unknown History vitamin B complex 1 tab PO 1000 03/21/19 12/10/20 12/10/20 10:00 History warfarin 4 mg tablet 3.75 mg PO 0200 tab 03/21/19 12/10/20 12/10/20 02:00 History zinc gluconate 100 mg tablet 100 mg PO 1800 03/21/19 12/10/20 12/10/20 18:00 History levothyroxine 125 mcg tablet 62.5 mcg PO 1000 tab 07/02/19 12/10/20 12/10/20 10:00 History fluticasone propionate 100 1 inh INHALATION BID PRN 07/24/19 12/10/20 Unknown History mcg/actuation blister powder for inhalation Wheel Chair Repairs #1 ea 11/06/19 10/08/20 Unknown Rx ipratropium bromide 17 1 puff INHALATION BID PRN 06/11/20 12/10/20 Unknown History mcg/actuation HFA aerosol inhaler sumatriptan succinate 50 mg tablet 50 mg PO BID PRN tab 06/11/20 12/10/20 Unknown History fluconazole 150 mg tablet See Rx Instructions .ROUTE 11/14/20 12/10/20 12/07/20 10:00 Rx .COMPLEX #7 tab morphine 15 mg tablet,extended 15 mg PO Q12H 30 Days #90 tab 11/20/20 12/10/20 12/10/20 10:00 Rx release baclofen 10 mg PO DAILY PRN 12/10/20 12/10/20 Unknown History baclofen 20 mg PO 1000 12/10/20 12/10/20 12/10/20 18:00 History baclofen 20 mg PO 1800 12/10/20 12/10/20 12/10/20 18:00 History baclofen 25 mg PO 0200 12/10/20 12/10/20 12/10/20 02:00 History cholecalciferol (vitamin D3) 10 mcg PO 1800 12/10/20 12/10/20 12/10/20 18:00 History [Vitamin D3] clonazepam 0.5 mg PO DAILY PRN 12/10/20 12/10/20 Unknown History cyclobenzaprine 10 mg PO DAILY PRN 12/10/20 12/10/20 Unknown History gentamicin 1 applic TOPICAL 1000 1012/10/20 12/10/20 10:00 History levofloxacin 500 mg PO 1800 12/10/20 12/10/20 12/10/20 18:00 History oxycodone 10 mg PO Q12H PRN 12/10/20 12/10/20 12/10/20 15:00 History pregabalin [Lyrica] 100 mg PO Q12H 12/10/20 12/10/20 12/10/20 18:00 History Allergies Allergy/AdvReac Type Severity Reaction Status Date / Time erythromycin base Allergy Unknown Verified 10/08/20 08:53 interferon beta-1b Allergy Unknown Verified 10/08/20 08:53 [From Betaseron] lorazepam [From Ativan] Allergy Unknown Verified 10/08/20 08:53 PFSH Acute PFSH: Medical History Pedro disease Antiphospholipid syndrome AVN of femur Bone infarction of lower extremity High risk medication use Hx of deep venous thrombosis Hx of pulmonary embolus Hypotension Immunization counseling Inflammatory arthritis Long-term (current) use of anticoagulants, INR goal 2.5-3.5 Multiple sclerosis Multiple sclerosis Neuralgia and neuritis, unspecified Positive JARRED (antinuclear antibody) Pulmonary embolism Recurrent UTI Systemic lupus erythematosus, unspecified Wheelchair bound Surgical History H/O chest tube placement History of bone marrow biopsy Hx of cholecystectomy Family History Denies family history of Rheumatoid arthritis Lupus Social History Smoking and tobacco status: former smoker Quit status (tobacco): has quit using tobacco Year quit tobacco: 2009 Former quit date comment: Hx of 1 PPD x 13 Years Smoking risk assessment/counseling performed?: No Alcohol intake: former Counseling given: No Counseling given: No Caregiver/support person: Yes () Lives independently: Yes Household members: spouse Marital status: Current occupational status: disabled History of recent travel: No Current gender identity: Female Vitals/I&O/Wt Last Vital Signs Temp 98.4 F 12/10/20 21:08 Pulse 96 12/10/20 21:08 Resp 19 H 12/10/20 21:08 BP 90/55 12/10/20 21:08 Pulse Ox 94 12/10/20 21:08 Physical Exam Narrative: EXAM NARRATIVE: General: Alert awake in wheelchair HEENT; Grossly unremarkable CVS; NSR Chest; non-labored Abd; Soft nt,nd, SPC side no discharge Ext; + edema Data : 12/10/20 22:08 12/10/20 22:08 A&P Assessment and plan (1) UTI (urinary tract infection) due to urinary indwelling catheter: Status: Acute (2) Multiple sclerosis: Status: Acute (3) Pulmonary embolus: Status: Acute (4) Hx of pulmonary embolus: Status: Acute (5) Multiple sclerosis: Status: Acute (6) Antiphospholipid syndrome: Status: Acute Additional A&P Information Urinary tract infection related to Ch. SPC. Catheter changed 1 week prior Following urology outpatient Based on sensitivities will start Primexin Blood culture x 2 Repeat Urine culture Labs in am Acute encephopathy Likely infectious Management as noted above End stage MS / Spastic quadriplegia Pt consultation Baclofen as ordered Fall precautions Obesity hypoventilation syndrome Clarify if using bipap qhs Duoneb q6hr Supplemental o2 as needed Hx of Multiple PE On coumadin INR supratheraputic Hold coumadin for now Goal INR 2-3 Repeat INR in am Depression Zoloft 150 mg PO daily Sacral decubitus ulcer / Heel Off loading ankle boots / bed Positional changes Wound care DVT ppx Coumadin as noted above. Attestations Medical Necessity Statement*: will require over 2 midnight stay in hospital for eval and treatment Time Spent in Patient Care: Greater than 35 minutes (>than 50% of time spent in counselling and/or direct pt care on unit). Coding Level of Care Code Acute Medical Records Coder for [facility] Fwd Diagnoses UTI (urinary tract infection) due to urinary indwelling catheter T83.511A; N39.0 Multiple sclerosis G35 Pulmonary embolus I26.99 Hx of pulmonary embolus Z86.711 Multiple sclerosis G35 Antiphospholipid syndrome D68.61
[2020-12-10 22:43] LABS: Basophils % 0.6 %; Eosinophils # 0.2 10^3/uL (0.0-0.8); Eosinophils % 2.4 %; Hematocrit 38.2 % (37.0-47.0); Hemoglobin 12.1 g/dL (11.5-15.3); Lymphocytes # 2.2 10^3/uL (0.8-4.8); Lymphocytes % 30.5 %; Mean Corpuscular HGB Conc 31.7 g/dL (30.0-36.0); Mean Corpuscular Hemoglobin 28.3 pg (28.0-34.0); Mean Corpuscular Volume 89.5 fl (81-99); Mean Platelet Volume 12.3 fL (7.4-10.4); Monocytes # 0.5 10^3/uL (0.2-0.9); Monocytes % 7.4 %; Neutrophils # 4.23 10^3/uL (1.8-7.7); Neutrophils % 58.8 %; Nucleated Red Blood Cells % 0 %; Platelet Count 147 10^3/cmm (130-400); Red Blood Count 4.27 10^6/uL (4.1-5.3); Red Cell Distribution Width 14.6 % (12.1-15.1); White Blood Count 7.2 10^3/uL (4.0-10.0)
[2020-12-10 22:54] LABS: Lactic Sepsis W/Reflex 0.7 mmol/L (0.5-2.2)
[2020-12-10 22:55] LABS: Alanine Aminotransferase < 5 U/L (0-33); Albumin Level 2.9 g/dL (3.5-5.2); Alkaline Phosphatase 111 IU/L (35-105); Anion Gap 12.7 (5-19); Aspartate Amino Transferase 13 U/L (0-32); Blood Urea Nitrogen 7 mg/dL (6-20); Calcium 8.5 mg/dL (8.5-10.5); Carbon Dioxide 26 mmol/L (22-29); Chloride 101 mmol/L (98-107); Globulin 3.2 g/dL (1.3-4.6); Glomerular Filtration Rate 370.1 mL/min (90-130); Glucose 76 mg/dL (65-115); Magnesium 1.8 mg/dL (1.7-2.3); Osmolality Calculated 279 mOsm/kg (285-295); Phosphorus 3.3 mg/dL (2.5-4.5); Potassium 3.7 mmol/L (3.5-5.1); Sodium 136 mmol/L (136-145); Total Bilirubin 0.2 mg/dL (0.15-1.2); Total Protein 6.1 g/dL (6.6-8.7)
[2020-12-10 22:57] LABS: INR 3.12 (0.8-1.2)
[2020-12-10 23:01] LABS: Procalcitonin 0.04 ng/mL (0-0.5)
[2020-12-10] MEDS: sodium chloride 0.9% 1,000 ML 75 ML IV (23:25)
[2020-12-10 23:26] VITALS: BMI 24.0
[2020-12-11] VITALS (8 sets, daily range): BP systolic 86–109; BP diastolic 60–68; PULSE 70–85; RESP 17–19; TEMP 36.6–36.9; O2SAT 92–98
[2020-12-11] MEDS: pregabalin 100 mg Capsule PO ×2 (00:46→13:00)
[2020-12-11] MEDS: morphine ER (12 HR) 15 mg Tablet PO ×2 (00:46→13:00)
[2020-12-11] MEDS: sertraline 100 mg Tablet 150 MG PO (01:58)
[2020-12-11] MEDS: baclofen 10 mg Tablet 25 MG PO (01:59)
[2020-12-11 02:18] LABS: Bilirubin Urine Neg (Negative); Blood Urine 2+ (Negative); Glucose Urine UA Norm (Normal); Ketones Urine Negative (Negative); Nitrate Urine Positive (Negative); Protein Urine 1+ (Negative); Urine Appearance Clear (CLEAR); Urine Color Yellow (Yellow); pH Urine 7 (5-7)
[2020-12-11 02:19] LABS: Add Urine Culture? Yes; Add Urine Microscopic? YES; Amorphous Sediment Urine 2+ /hpf; Bacteria Urine 1+ /hpf; Leukocyte Esterase Urine 1+ (Negative); Mucus Urine TRACE /hpf; Squamous Epithelial Cell Urine 0-4 /hpf (0-5); Urobilinogen Urine Norm (Negative); WBC Urine 25-40 /hpf (0-5)
[2020-12-11] MEDS: baclofen 10 mg Tablet 20 MG PO ×2 (11:31→17:43)
[2020-12-11] MEDS: levothyroxine 125 mcg Tablet 62.5 MCG PO (11:31)
[2020-12-11] MEDS: bisacodyl 5 mg Tablet PO (13:00)
--- NOTE | 2020-12-11 13:36 | PC.PHAR ---
pt states her takes care of her medications-pts verified pts medications-notes are made in the pharmacy comments-pts states the pt has fludrocortisone and prednisone and takes prn pts states the rx is from a year ago and unsure where he filled at doesnt show on ext med history-pts states the pt takes morphine er 15mg q12h rx filled on 11/10/20 15mg q8h prn-oxycodone ir 10mg q12h prn rx filled for 10mg qid prn-lyrica 100mg q12h written for 100mg tid
[2020-12-11] MEDS: sodium chloride 0.9% 1,000 ML 75 ML IV (15:45)
--- NOTE | 2020-12-11 17:01 | PC.PT ---
Discussed patient long history of end-stage multiple sclerosis, and patient prior level of function is Carola lift transfers at home, with assistance from her spouse,with Dr. Gonzales, and he agreed on no need of PT intervention at this time. Discharge physical therapy evaluation order.
[2020-12-11] MEDS: montelukast sodium 10 mg Tablet PO (17:42)
[2020-12-11] MEDS: oxyCODONE 5 mg IR Tab/Cap 10 MG PO (18:33)
--- NOTE | 2020-12-11 22:09 | P.PN_ITS ---
Subjective Subjective: Interval history: Constipated, has not had a bowel movement in several days. Requests Dulcolax. Otherwise appears to be more alert. Discussed with her with regards to pseudomonal growing on culture 11/26 resistant to quinolones. Vitals/I&O/Wt Last Vital Signs Temp 98.5 F 12/11/20 20:00 Pulse 74 12/11/20 20:00 Resp 17 12/11/20 20:00 BP 91/60 12/11/20 20:00 Pulse Ox 95 12/11/20 20:00 12/11/20 12/11/20 12/11/20 06:59 14:59 22:59 Intake Total 500 / 500 1100 / 1100 100 / 1200 Output Total 850 / 850 Balance 500 / 500 1100 / 1100 -750 / 350 Weight last 48 hrs Weight 66.678 kg Weight 66.678 kg Physical Exam Const: COMMON NORMALS: no acute distress and patient oriented x3 GENERAL APPEARANCE: cooperative OTHER: Resting. Wakes up to voice. Chronically hard of hearing. HENMT: COMMON NORMALS: oropharynx normal Neck/C-Spine: COMMON NORMALS: no JVD Resp: COMMON NORMALS: normal respiratory effort and clear to auscultation bilaterally AUSCULTATION: clear to auscultation bilaterally Cardio: COMMON NORMALS: no JVD, regular rhythm, S1 normal heart sound present, S2 normal heart sound present and No murmurs present (Cardio) RHYTHM: regular rhythm HEART SOUNDS: S1 normal heart sound present and S2 normal heart sound present GI: COMMON NORMALS: Normal to inspection, nondistended, normoactive bowel sounds present, Soft to palpation and non-tender PALPATION: Yes Soft to palpation Extremity: COMMON NORMALS: no joint enlargement and no pedal edema Neuro: COMMON NORMALS: patient oriented x3 and moves all extremities Skin: OTHER: Chronic pressure ulcers as described by , visualized today: Stage IV 2 x 3 cm sacral, deeper ulceration, very close to bone, although did not see bone exposure, covered by thin layer of subcutaneous tissue on pr obing. Left hip, 2 x 2 cm stage IV, no probe to bone, minimal layer of necrotic tissue at base. Right hip healed stage IV, with dimple 1 x 1 cm. Inferior medially area 3 x 3 cm of shear damage, possibly on hold healed pressure ulcer. Left heel 4 x 4 cm plantar DTI. Data : 12/10/20 22:08 12/10/20 22:08 Micro: Microbiology 12/10/20 22:25 Blood Culture - Preliminary Blood SPECIMEN COLLECTED 12/10/20 22:08 Blood Culture - Preliminary Blood SPECIMEN COLLECTED A&P Assessment and plan (1) UTI (urinary tract infection) due to urinary indwelling catheter: Continue Primaxin currently, although could also switch to Zosyn based on most recent pseudomonal culture. Follow-up urine culture. Follow-up blood culture. Status: Acute (2) Multiple sclerosis: Status: Acute (3) Pulmonary embolus: Status: Acute (4) Hx of pulmonary embolus: Status: Acute (5) Antiphospholipid syndrome: Status: Acute Additional A&P Information Acute encephopathy: Improving Likely infectious End stage MS / Spastic quadriplegia: At baseline Obesity hypoventilation syndrome Clarify if using bipap qhs Duoneb q6hr Supplemental o2 as needed Hx of Multiple PE: Recheck INR On coumadin INR supratheraputic Hold coumadin for now Goal INR 2-3 Depression Zoloft 150 mg PO daily Sacral decubitus ulcer / Heel: Stage IV 2 x 3 cm sacral, deeper ulceration, very close to bone, although did not see bone exposure, covered by thin layer of jacobson bcutaneous tissue on probing. Left hip, 2 x 2 cm stage IV, no probe to bone, minimal layer of necrotic tissue at base. Right hip healed stage IV, with dimple 1 x 1 cm. Inferior medially area 3 x 3 cm of shear damage, possibly on hold healed pressure ulcer. Left heel 4 x 4 cm plantar DTI. Will need follow-up with wound care. Left heel will need debridement. Attestations Medical Necessity Statement*: Continue admission for assessment of management of complicated urinary tract infection with acute encephalopathy, previously with resistant pseudomonal, pending culture in a lady with underlying end-stage multiple sclerosis. Coding Level of Care Code Acute Mule Driver for [facility] Fwd Diagnoses UTI (urinary tract infection) due to urinary indwelling catheter T83.511A; N39.0 Multiple sclerosis G35 Pulmonary embolus I26.99 Hx of pulmonary embolus Z86.711 Antiphospholipid syndrome D68.61
[2020-12-12] VITALS (8 sets, daily range): BP systolic 82–110; BP diastolic 57–73; PULSE 62–81; RESP 16–20; TEMP 36.4–36.8; O2SAT 94–97
[2020-12-12] MEDS: sertraline 100 mg Tablet 150 MG PO (01:02)
[2020-12-12] MEDS: morphine ER (12 HR) 15 mg Tablet PO ×3 (01:02→23:47)
[2020-12-12] MEDS: pregabalin 100 mg Capsule PO ×3 (01:02→23:39)
[2020-12-12] MEDS: baclofen 10 mg Tablet 25 MG PO (01:03)
[2020-12-12] MEDS: sodium chloride 0.9% 1,000 ML 75 ML IV (05:11)
[2020-12-12 05:40] LABS: Basophils % 0.3 %; Eosinophils # 0.2 10^3/uL (0.0-0.8); Eosinophils % 2.8 %; Hematocrit 36.1 % (37.0-47.0); Hemoglobin 11.1 g/dL (11.5-15.3); Lymphocytes # 2.3 10^3/uL (0.8-4.8); Lymphocytes % 37.9 %; Mean Corpuscular HGB Conc 30.7 g/dL (30.0-36.0); Mean Corpuscular Hemoglobin 28.4 pg (28.0-34.0); Mean Corpuscular Volume 92.3 fl (81-99); Monocytes # 0.5 10^3/uL (0.2-0.9); Monocytes % 7.5 %; Neutrophils # 3.07 10^3/uL (1.8-7.7); Neutrophils % 51.2 %; Nucleated Red Blood Cells % 0 %; Platelet Count 122 10^3/cmm (130-400); Red Blood Count 3.91 10^6/uL (4.1-5.3); Red Cell Distribution Width 14.7 % (12.1-15.1)
[2020-12-12 05:56] LABS: INR 2.93 (0.8-1.2)
[2020-12-12 06:01] LABS: Alanine Aminotransferase < 5 U/L (0-33); Albumin Level 2.7 g/dL (3.5-5.2); Alkaline Phosphatase 103 IU/L (35-105); Anion Gap 10.8 (5-19); Aspartate Amino Transferase 13 U/L (0-32); Blood Urea Nitrogen 9 mg/dL (6-20); Calcium 8.2 mg/dL (8.5-10.5); Carbon Dioxide 26 mmol/L (22-29); Chloride 106 mmol/L (98-107); Globulin 2.5 g/dL (1.3-4.6); Glomerular Filtration Rate 128.6 mL/min (90-130); Glucose 98 mg/dL (65-115); Osmolality Calculated 287 mOsm/kg (285-295); Potassium 3.8 mmol/L (3.5-5.1); Sodium 139 mmol/L (136-145); Total Bilirubin 0.2 mg/dL (0.15-1.2); Total Protein 5.2 g/dL (6.6-8.7)
[2020-12-12] MEDS: pantoprazole DR 40 mg Tablet PO (08:29)
[2020-12-12] MEDS: levothyroxine 125 mcg Tablet 62.5 MCG PO (09:55)
[2020-12-12] MEDS: baclofen 10 mg Tablet 20 MG PO ×2 (09:55→18:13)
[2020-12-12] MEDS: bisacodyl 5 mg Tablet PO (11:25)
[2020-12-12] MEDS: lactobacillus 1 Tablet 1 TAB PO ×2 (11:25→18:13)
[2020-12-12] MEDS: montelukast sodium 10 mg Tablet PO (18:13)
--- NOTE | 2020-12-12 22:06 | PM.PN ---
Subjective Subjective: Interval history: Overall she is doing better. More alert, feels more energetic. Eating okay. No nausea or vomiting. Vitals/I&O/Wt Last Vital Signs Temp 98.0 F 12/12/20 19:57 Pulse 68 12/12/20 19:57 Resp 18 12/12/20 19:57 BP 101/67 12/12/20 19:57 Pulse Ox 97 12/12/20 19:57 12/12/20 12/12/20 12/12/20 06:59 14:59 22:59 Intake Total 2160 / 3360 100 / 100 100 / 200 Output Total 450 / 1300 150 / 150 Balance 1710 / 2060 100 / 100 -50 / 50 Weight last 48 hrs Weight 67.132 kg Weight 66.678 kg Weight 66.678 kg Physical Exam Const: COMMON NORMALS: no acute distress and patient oriented x3 GENERAL APPEARANCE: cooperative OTHER: Resting. Wakes up to voice. Chronically hard of hearing. HENMT: COMMON NORMALS: oropharynx normal Neck/C-Spine: COMMON NORMALS: no JVD Resp: COMMON NORMALS: normal respiratory effort and clear to auscultation bilaterally AUSCULTATION: clear to auscultation bilaterally Cardio: COMMON NORMALS: no JVD, regular rhythm, S1 normal heart sound present, S2 normal heart sound present and No murmurs present (Cardio) RHYTHM: regular rhythm HEART SOUNDS: S1 normal heart sound present and S2 normal heart sound present GI: COMMON NORMALS: Normal to inspection, nondistended, normoactive bowel sounds present, Soft to palpation and non-tender PALPATION: Yes Soft to palpation Extremity: COMMON NORMALS: no joint enlargement and no pedal edema Neuro: COMMON NORMALS: patient oriented x3 and moves all extremities Skin: OTHER: Chronic pressure ulcers as described by , visualized today: Stage IV 2 x 3 cm sacral, deeper ulceration, very close to bone, although did not see bone exposure, covered by thin layer of subcutaneous tissue on probing. Left hip, 2 x 2 cm stage IV, no probe to bone, minimal layer of necrotic tissue at base. Right hip healed stage IV, with dimple 1 x 1 cm. Inferior medially area 3 x 3 cm of shear damage, possibly on hold healed pressure ulcer. Left heel 4 x 4 cm plantar DTI. Data : 12/12/20 05:14 12/12/20 05:14 Micro: Microbiology 12/11/20 00:10 Urine Culture - Preliminary Urine,Clean Catch Gram Negative Rods 12/10/20 22:25 Blood Culture - Preliminary Blood NEGATIVE TO DATE 12/10/20 22:08 Blood Culture - Preliminary Blood NEGATIVE TO DATE A&P Assessment and plan (1) UTI (urinary tract infection) due to urinary indwelling catheter: Overall she is improving. Pseudomonal resistant to oral antibiotics on culture at the end of October. Current culture pending, with gram-negative rods so far. Continue Primaxin currently, although could also switch to Zosyn based on most recent pseudomonal culture. Follow-up urine culture. Follow-up blood culture. Status: Acute (2) Deep tissue injury: Plantar left heel, with black necrotic tissue/shallow ulceration, unknown condition underneath, poorly formed after a blood blister. Appears moist, no significant surrounding erythema. No drainage. Apply Santyl. Discussed with wound care, tentative plan for debridement on Tuesday. Discussed with her , warfarin will need to be held, recheck INR. Bridge with Lovenox. Subsequently restart warfarin, she targets INR 2.5-3.5 due to antiphospholipid syndrome. Status: Acute (3) Multiple sclerosis: Status: Acute (4) Pulmonary embolus: Status: Acute (5) Hx of pulmonary embolus: Status: Acute (6) Antiphospholipid syndrome: Status: Acute Additional A&P Information Acute encephopathy: Improving Likely infectious End stage MS / Spastic quadriplegia: At baseline Obesity hypoventilation syndrome Clarify if using bipap qhs Duoneb q6hr Supplemental o2 as needed Hx of Multiple PE: Recheck INR On coumadin INR supratheraputic Hold coumadin for now Goal INR 2-3 Depression Zoloft 150 mg PO daily Sacral decubitus ulcer / Heel: Stage IV 2 x 3 cm sacral, deeper ulceration, very close to bone, although did not see bone exposure, covered by thin layer of subcutaneous tissue on probing. Left hip, 2 x 2 cm stage IV, no probe to bone, minimal layer of necrotic tissue at base. Right hip healed stage IV, with dimple 1 x 1 cm. Inferior medially area 3 x 3 cm of shear damage, possibly on hold healed pressure ulcer. Wound care. Left heel 4 x 4 cm plantar DTI -as above. Constipation: Dulcolax Attestations Medical Necessity Statement*: Continue admission for assessment of management of complicated urinary tract infection with resistant Pseudomonas, continued IV antibiotic therapy, preparations for debridement of deep tissue injury of plantar left heel with holding warfarin and subsequently Lovenox bridging due to antiphospholipid syndrome. Coding Level of Care Code Acute Transport Aide for [facility] Fwd Diagnoses UTI (urinary tract infection) due to urinary indwelling catheter T83.511A; N39.0 Deep tissue injury T14.8XXA Multiple sclerosis G35 Pulmonary embolus I26.99 Hx of pulmonary embolus Z86.711 Antiphospholipid syndrome D68.61
[2020-12-13] VITALS (9 sets, daily range): BP systolic 90–105; BP diastolic 58–70; PULSE 61–75; RESP 16–18; TEMP 36.5–37; O2SAT 95–97; BMI 24.4
[2020-12-13] MEDS: baclofen 10 mg Tablet 25 MG PO (01:51)
[2020-12-13] MEDS: sodium chloride 0.9% 1,000 ML 75 ML IV ×2 (01:52→15:10)
[2020-12-13] MEDS: sertraline 100 mg Tablet 150 MG PO (02:03)
[2020-12-13 07:16] LABS: Basophils % 0.5 %; Eosinophils # 0.2 10^3/uL (0.0-0.8); Eosinophils % 2.5 %; Hematocrit 37.6 % (37.0-47.0); Hemoglobin 11.5 g/dL (11.5-15.3); Lymphocytes # 2.1 10^3/uL (0.8-4.8); Lymphocytes % 34.4 %; Mean Corpuscular HGB Conc 30.6 g/dL (30.0-36.0); Mean Corpuscular Hemoglobin 28.4 pg (28.0-34.0); Mean Corpuscular Volume 92.8 fl (81-99); Mean Platelet Volume 12.1 fL (7.4-10.4); Monocytes # 0.4 10^3/uL (0.2-0.9); Monocytes % 5.9 %; Neutrophils # 3.36 10^3/uL (1.8-7.7); Neutrophils % 56.4 %; Nucleated Red Blood Cells % 0 %; Platelet Count 122 10^3/cmm (130-400); Red Blood Count 4.05 10^6/uL (4.1-5.3); Red Cell Distribution Width 14.5 % (12.1-15.1)
[2020-12-13 07:21] LABS: INR 1.99 (0.8-1.2)
[2020-12-13 07:38] LABS: Alanine Aminotransferase < 5 U/L (0-33); Albumin Level 2.6 g/dL (3.5-5.2); Alkaline Phosphatase 95 IU/L (35-105); Anion Gap 12.7 (5-19); Aspartate Amino Transferase 12 U/L (0-32); Blood Urea Nitrogen 6 mg/dL (6-20); Calcium 8.3 mg/dL (8.5-10.5); Carbon Dioxide 24 mmol/L (22-29); Chloride 108 mmol/L (98-107); Globulin 2.8 g/dL (1.3-4.6); Glucose 74 mg/dL (65-115); Osmolality Calculated 288 mOsm/kg (285-295); Potassium 3.7 mmol/L (3.5-5.1); Sodium 141 mmol/L (136-145); Total Bilirubin 0.2 mg/dL (0.15-1.2); Total Protein 5.4 g/dL (6.6-8.7)
[2020-12-13 07:43] LABS: Glomerular Filtration Rate 823.7 mL/min (90-130)
[2020-12-13] MEDS: pantoprazole DR 40 mg Tablet PO (08:21)
[2020-12-13] MEDS: lactobacillus 1 Tablet 1 TAB PO ×2 (08:21→17:23)
[2020-12-13] MEDS: oxyCODONE 5 mg IR Tab/Cap 10 MG PO (08:21)
[2020-12-13] MEDS: levothyroxine 125 mcg Tablet 62.5 MCG PO (10:37)
[2020-12-13] MEDS: baclofen 10 mg Tablet 20 MG PO ×2 (10:37→17:18)
--- NOTE | 2020-12-13 11:51 | PC.SOCIAL ---
Pg 2 IMM Explained to pt Pg 2 IMM. No questions voiced. Provided pt a copy. Initialed, dated, & timed a copy & placed in chart.
[2020-12-13] MEDS: morphine ER (12 HR) 15 mg Tablet PO (12:59)
[2020-12-13] MEDS: pregabalin 100 mg Capsule PO (12:59)
[2020-12-13] MEDS: enoxaparin 80 mg/0.8 mL Syringe 70 MG SUBCUT (15:08)
[2020-12-13] MEDS: montelukast sodium 10 mg Tablet PO (17:17)
--- NOTE | 2020-12-13 21:44 | P.PN_ITS ---
Subjective Subjective: Interval history: She is continuing to improve but states improvement is very incremental . Asks whether antibiotic course is planned for 5 or 7 days. Discussed with her tentative plan for 5 days, but may depend on her condition. Vitals/I&O/Wt Last Vital Signs Temp 98.0 F 12/13/20 19:41 Pulse 73 12/13/20 19:41 Resp 16 12/13/20 19:41 BP 92/61 12/13/20 19:41 Pulse Ox 96 12/13/20 19:41 12/13/20 12/13/20 12/13/20 06:59 14:59 22:59 Intake Total 100 / 1300 560 / 560 1097.5 / 1657.5 Output Total 1999 Balance -1900 / -850 560 / 560 -902.5 / -342.5 Weight last 48 hrs Weight 67.585 kg Weight 67.132 kg Physical Exam Const: COMMON NORMALS: no acute distress and patient oriented x3 GENERAL APPEARANCE: cooperative OTHER: Resting. Wakes up to voice. Chronically hard of hearing. HENMT: COMMON NORMALS: oropharynx normal Neck/C-Spine: COMMON NORMALS: no JVD Resp: COMMON NORMALS: normal respiratory effort and clear to auscultation bilaterally AUSCULTATION: clear to auscultation bilaterally Cardio: COMMON NORMALS: no JVD, regular rhythm, S1 normal heart sound present, S2 normal heart sound present and No murmurs present (Cardio) RHYTHM: regular rhythm HEART SOUNDS: S1 normal heart sound present and S2 normal heart sound present GI: COMMON NORMALS: Normal to inspection, nondistended, normoactive bowel sounds present, Soft to palpation and non-tender PALPATION: Yes Soft to palpation Extremity: COMMON NORMALS: no joint enlargement and no pedal edema Neuro: COMMON NORMALS: patient oriented x3 and moves all extremities Skin: OTHER: Chronic pressure ulcers as described by , visualized today: Stage IV 2 x 3 cm sacral, deeper ulceration, very close to bone, although did not see bone exposure, covered by thin layer of subcutaneous tissue on probing. Left hip, 2 x 2 cm stage IV, no probe to bone, minimal layer of necrotic tissue at base. Right hip healed stage IV, with dimple 1 x 1 cm. Inferior medially area 3 x 3 cm of shear damage, possibly on hold healed pressure ulcer. Left heel 4 x 4 cm plantar DTI. Data : 12/13/20 05:21 12/13/20 05:21 Micro: Microbiology 12/11/20 00:10 Urine Culture - Preliminary Urine,Clean Catch Pseudomonas species A&P Assessment and plan (1) UTI (urinary tract infection) due to urinary indwelling catheter: Overall she is improving, although states improvement is very incremental . Asks whether course antibiotic is for 5 or 7 days. Discussed with her tentatively plan for 5 days, but may depend on her condition. Currently growing Pseudomonas in urine from admission, sensitivities pending. Pseudomonal resistant to oral antibiotics on culture at the end of October. Continue Primaxin currently. Follow-up urine culture. Follow-up blood culture. Status: Acute (2) Deep tissue injury: Tentatively plan for debridement on Tuesday. In the meantime wound care with Santyl. Warfarin on hold. Bridging with Lovenox. Hold Lovenox after evening dose the night before the procedure. No need to reverse INR as long as below 2. Plantar left heel, with black necrotic tissue/shallow ulceration, unknown condition underneath, poorly formed after a blood blister. Appears moist, no significant surrounding erythema. No drainage. Apply Santyl. Discussed with wound care, tentative plan for debridement on Tuesday. Discussed with her , warfarin will need to be held, recheck INR. Bridge with Lovenox. Subsequently restart warfarin, she targets INR 2.5-3.5 due to antiphospholipid syndrome. Status: Acute (3) Multiple sclerosis: Status: Acute (4) Pulmonary embolus: Status: Acute (5) Hx of pulmonary embolus: Status: Acute (6) Antiphospholipid syndrome: Status: Acute Additional A&P Information Acute encephopathy: Improving Likely infectious End stage MS / Spastic quadriplegia: At baseline Obesity hypoventilation syndrome Clarify if using bipap qhs Duoneb q6hr Supplemental o2 as needed Hx of Multiple PE: Recheck INR On coumadin usually Hold coumadin for now. Lovenox bridging. Goal INR she targets INR 2.5-3.5 Depression Zoloft 150 mg PO daily Sacral decubitus ulcer / Heel: Stage IV 2 x 3 cm sacral, deeper ulceration, very close to bone, although did not see bone exposure, covered by thin layer of jacobson bcutaneous tissue on probing. Left hip, 2 x 2 cm stage IV, no probe to bone, minimal layer of necrotic tissue at base. Right hip healed stage IV, with dimple 1 x 1 cm. Inferior medially area 3 x 3 cm of shear damage, possibly on hold healed pressure ulcer. Wound care. Left heel 4 x 4 cm plantar DTI -as above. Constipation: Dulcolax Attestations Medical Necessity Statement*: Continue admission for management of complicated UTI with multidrug-resistant Pseudomonas, requiring IV antibiotic, as well as plan of deep tissue injury debridement of plantar left heel. Coding Level of Care Code Acute Functional Manager for [facility] Fwd Diagnoses UTI (urinary tract infection) due to urinary indwelling catheter T83.511A; N39.0 Deep tissue injury T14.8XXA Multiple sclerosis G35 Pulmonary embolus I26.99 Hx of pulmonary embolus Z86.711 Antiphospholipid syndrome D68.61
[2020-12-14] VITALS (9 sets, daily range): BP systolic 86–102; BP diastolic 53–63; PULSE 60–70; RESP 16–20; TEMP 36.5–36.7; O2SAT 93–97; BMI 24.4
[2020-12-14] MEDS: sertraline 100 mg Tablet 150 MG PO (00:57)
[2020-12-14] MEDS: morphine ER (12 HR) 15 mg Tablet PO ×2 (01:00→11:50)
[2020-12-14] MEDS: pregabalin 100 mg Capsule PO ×2 (01:00→11:49)
[2020-12-14] MEDS: baclofen 10 mg Tablet 25 MG PO (01:01)
[2020-12-14] MEDS: enoxaparin 80 mg/0.8 mL Syringe 70 MG SUBCUT ×2 (01:04→13:54)
[2020-12-14 05:41] LABS: Basophils % 0.3 %; Eosinophils # 0.1 10^3/uL (0.0-0.8); Eosinophils % 2.1 %; Hematocrit 35.6 % (37.0-47.0); Hemoglobin 11.1 g/dL (11.5-15.3); Lymphocytes # 1.9 10^3/uL (0.8-4.8); Lymphocytes % 30.3 %; Mean Corpuscular HGB Conc 31.2 g/dL (30.0-36.0); Mean Corpuscular Hemoglobin 28.5 pg (28.0-34.0); Mean Corpuscular Volume 91.3 fl (81-99); Mean Platelet Volume 11.9 fL (7.4-10.4); Monocytes # 0.3 10^3/uL (0.2-0.9); Monocytes % 5.4 %; Neutrophils # 3.84 10^3/uL (1.8-7.7); Neutrophils % 61.6 %; Nucleated Red Blood Cells % 0 %; Platelet Count 119 10^3/cmm (130-400); Red Cell Distribution Width 14.5 % (12.1-15.1); White Blood Count 6.2 10^3/uL (4.0-10.0)
[2020-12-14 05:53] LABS: INR 2.07 (0.8-1.2)
[2020-12-14 06:12] LABS: Alanine Aminotransferase < 5 U/L (0-33); Albumin Level 2.6 g/dL (3.5-5.2); Alkaline Phosphatase 98 IU/L (35-105); Chloride 111 mmol/L (98-107); Potassium 3.5 mmol/L (3.5-5.1); Sodium 143 mmol/L (136-145)
[2020-12-14 06:35] LABS: Anion Gap 11.5 (5-19); Blood Urea Nitrogen 6 mg/dL (6-20); Calcium 7.9 mg/dL (8.5-10.5); Carbon Dioxide 24 mmol/L (22-29); Globulin 1.9 g/dL (1.3-4.6); Glomerular Filtration Rate 128.6 mL/min (90-130); Glucose 87 mg/dL (65-115); Osmolality Calculated 293 mOsm/kg (285-295); Total Bilirubin 0.2 mg/dL (0.15-1.2); Total Protein 4.5 g/dL (6.6-8.7)
[2020-12-14 07:58] LABS: Aspartate Amino Transferase 12 U/L (0-32)
[2020-12-14] MEDS: sodium chloride 0.9% 1,000 ML 75 ML IV (08:10)
[2020-12-14] MEDS: oxyCODONE 5 mg IR Tab/Cap 10 MG PO (08:14)
[2020-12-14] MEDS: pantoprazole DR 40 mg Tablet PO (08:16)
[2020-12-14] MEDS: lactobacillus 1 Tablet 1 TAB PO ×2 (08:16→18:34)
[2020-12-14] MEDS: baclofen 10 mg Tablet 20 MG PO ×2 (09:56→18:34)
[2020-12-14] MEDS: levothyroxine 125 mcg Tablet 62.5 MCG PO (09:56)
--- NOTE | 2020-12-14 10:44 | PC.CHAP ---
Pastoral Care Encounter/Spiritual Assessment Type of Contact [] Declined road tester visit [] Patient/Family/Request visit [] Outpatient visit [] Follow-up visit [] Physician referral [] Code/Alert [X] Routine visit [] Staff referral [] Actively dying [] Patient sleeping [] Family support [] [] Out of room [] Palliative care [] [] Receiving care in room [] Pre-surgical visit [] Trauma [] Long length of stay [] ICU visit [] Other: Relational/Emotional Strength [] Patient feels connected with others/family/visitors/staff [] Distress [] Loneliness/isolation [] Abandonment Spirituality of Patient [] Person of Shefali [] Attends Restoration of their Shefali [] Believes in Prayer [] Reads Bible or Uatsdin materials [] There are Spiritual issues to be addressed Oxygen System Tester Interventions [] Prayer [] Active listening [X] Non-anxious presence [] Spiritual/emotional support [] Crisis/trauma care [] Spiritual counseling [] Bereavement support [] Provided bereavement packet [] Provided Bible/devotional materials [] Provided toy/stuffed animal, coloring book to patient or family member [] Provided Communion [] Anointing/[place] [] Salvation [] Completed spiritual assessment [] Other: Impact on Illness or Injury [] Angry [] Fearful [] Anxious [] Often cries [] Exhaustion [] Unable to work [] Unable to attend muslim [] Unable to walk/stand [] Unable to read [] Unable to drive [] Unable to eat/drink [] Unable to sleep [] Unable to be with family [] Patient intubated [] Other: Summary: Oxygen System Tester entered the room noting many personal belongings of the patient. Pt was surrounded by snacks and warm blankets from home. Only pt's face could be seen nestled in a buckley and blankets. Pt appeared weak and tired. Pt informed road tester that she was about to take a nap and asked if visit could occur at another time. Chart notes indicate end stage multiple sclerosis. Time spent with patient: < 5mins
--- NOTE | 2020-12-14 14:23 | PC.NURSE ---
Patient and her was asking if the antibiotic was right for the bacteria growing in her urine. Doctor Earnestine notified and he said to continue patient on primaxin.
--- NOTE | 2020-12-14 17:15 | P.PN_ITS ---
Vitals/I&O/Wt Last Vital Signs Temp 97.8 F 12/14/20 16:00 Pulse 65 12/14/20 16:00 Resp 18 12/14/20 16:00 BP 97/60 12/14/20 16:00 Pulse Ox 96 12/14/20 16:00 12/14/20 12/14/20 12/14/20 06:59 14:59 22:59 Intake Total 1320 / 2977.5 340 / 340 100 / 440 Output Total 750 / 2750 800 / 800 Balance 570 / 227.5 340 / 340 -700 / -360 Weight last 48 hrs Weight 67.585 kg Weight 67.585 kg Physical Exam Const: COMMON NORMALS: no acute distress ORIENTATION/CONSCIOUSNESS: Yes awake, Yes oriented to person, Yes oriented to place and Yes oriented to time Resp: COMMON NORMALS: normal respiratory effort, No retractions, No use of accessory muscles and clear to auscultation bilaterally AUSCULTATION: clear to auscultation bilaterally Cardio: COMMON NORMALS: regular rate, regular rhythm, S1 normal heart sound present and S2 normal heart sound present RATE: regular rate RHYTHM: regular rhythm HEART SOUNDS: S1 normal heart sound present and S2 normal heart sound present GI: COMMON NORMALS: Normal to inspection, nondistended, normoactive bowel sounds present and Soft to palpation PALPATION: Yes Soft to palpation Extremity: COMMON NORMALS: no pedal edema Neuro: SENSORIUM/ORIENTATION: Yes oriented to person, Yes oriented to place and Yes oriented to time Psych: COMMON NORMALS: mental status grossly normal Data : 12/14/20 04:59 12/14/20 04:59 Micro: Microbiology 12/11/20 00:10 Urine Culture - Final Urine,Clean Catch Pseudomonas aeruginosa A&P Assessment and plan (1) UTI (urinary tract infection) due to urinary indwelling catheter: Overall she is improving, although states improvement is very incremental . Antibiotic course likely for 7 days, but may depend on her condition. Currently growing Pseudomonas in urine from admission, intermediate sensitivity to Primaxin, responding well, will continue as this for at least 7 days Pseudomonal resistant to oral antibiotics on culture at the end of October. Continue Primaxin currently. Follow-up urine culture. Follow-up blood culture. Plan for today continue antibiotics, n.p.o. midnight, last dose of Lovenox this afternoon, Status: Acute (2) Deep tissue injury: Tentatively plan for debridement on Tuesday. In the meantime wound care with Santyl. Warfarin on hold. Bridging with Lovenox. Hold Lovenox, no need to reverse INR as long as below 2. Plantar left heel, with black necrotic tissue/shallow ulceration, unknown condition underneath, poorly formed after a blood blister. Appears moist, no significant surrounding erythema. No drainage. Apply Santyl. Discussed with wound care, tentative plan for debridement on Tuesday. Discussed with her , warfarin will need to be held, recheck INR. Bridge with Lovenox. Subsequently restart warfarin, she targets INR 2.5-3.5 due to antiphospholipid syndrome. Status: Acute (3) Multiple sclerosis: Status: Acute (4) Pulmonary embolus: Status: Acute (5) Hx of pulmonary embolus: Status: Acute (6) Antiphospholipid syndrome: Status: Acute Additional A&P Information Acute encephopathy: Improving Likely infectious End stage MS / Spastic quadriplegia: At baseline Obesity hypoventilation syndrome Clarify if using bipap qhs Duoneb q6hr Supplemental o2 as needed Hx of Multiple PE: Recheck INR On coumadin usually Hold coumadin for now. Lovenox bridging. Goal INR she targets INR 2.5-3.5 Depression Zoloft 150 mg PO daily Sacral decubitus ulcer / Heel: Stage IV 2 x 3 cm sacral, deeper ulceration, very close to bone, although did not see bone exposure, covered by thin layer of subcutaneous tissue on probing. Left hip, 2 x 2 cm stage IV, no probe to bone, minimal layer of necrotic tissue at base. Right hip healed stage IV, with dimple 1 x 1 cm. Inferior medially area 3 x 3 cm of shear damage, possibly on hold healed pressure ulcer. Wound care. Left heel 4 x 4 cm plantar DTI -as above. 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
[2020-12-14] MEDS: montelukast sodium 10 mg Tablet PO (18:34)
[2020-12-14] MEDS: ondansetron 2 mg/ML SDV 2 mL 4 MG IVP (18:47)
[2020-12-15] VITALS (8 sets, daily range): BP systolic 82–97; BP diastolic 50–63; PULSE 60–83; RESP 15–16; TEMP 36.6–36.7; O2SAT 90–94
[2020-12-15] MEDS: sodium chloride 0.9% 1,000 ML 75 ML IV (01:03)
[2020-12-15] MEDS: sertraline 100 mg Tablet 150 MG PO (01:09)
[2020-12-15] MEDS: morphine ER (12 HR) 15 mg Tablet PO ×2 (01:10→12:25)
[2020-12-15] MEDS: baclofen 10 mg Tablet 25 MG PO (01:11)
[2020-12-15] MEDS: pregabalin 100 mg Capsule PO ×2 (01:12→12:25)
[2020-12-15 06:02] LABS: Basophils % 0.8 %; Eosinophils # 0.1 10^3/uL (0.0-0.8); Eosinophils % 2.3 %; Hematocrit 36.1 % (37.0-47.0); Lymphocytes # 1.6 10^3/uL (0.8-4.8); Lymphocytes % 30.1 %; Mean Corpuscular HGB Conc 30.5 g/dL (30.0-36.0); Mean Corpuscular Hemoglobin 27.8 pg (28.0-34.0); Mean Corpuscular Volume 91.4 fl (81-99); Mean Platelet Volume 12.4 fL (7.4-10.4); Monocytes # 0.4 10^3/uL (0.2-0.9); Monocytes % 6.6 %; Neutrophils # 3.18 10^3/uL (1.8-7.7); Nucleated Red Blood Cells % 0 %; Platelet Count 105 10^3/cmm (130-400); Red Blood Count 3.95 10^6/uL (4.1-5.3); Red Cell Distribution Width 14.4 % (12.1-15.1); White Blood Count 5.3 10^3/uL (4.0-10.0)
[2020-12-15 06:15] LABS: INR 1.86 (0.8-1.2)
[2020-12-15 06:37] LABS: Alanine Aminotransferase < 5 U/L (0-33); Albumin Level 2.6 g/dL (3.5-5.2); Alkaline Phosphatase 100 IU/L (35-105); Anion Gap 11.5 (5-19); Aspartate Amino Transferase 12 U/L (0-32); Blood Urea Nitrogen 4 mg/dL (6-20); Carbon Dioxide 23 mmol/L (22-29); Chloride 112 mmol/L (98-107); Globulin 2.6 g/dL (1.3-4.6); Glucose 80 mg/dL (65-115); Magnesium 1.6 mg/dL (1.7-2.3); Osmolality Calculated 292 mOsm/kg (285-295); Phosphorus 2.8 mg/dL (2.5-4.5); Potassium 3.5 mmol/L (3.5-5.1); Sodium 143 mmol/L (136-145); Total Bilirubin 0.2 mg/dL (0.15-1.2); Total Protein 5.2 g/dL (6.6-8.7)
[2020-12-15 06:41] LABS: Glomerular Filtration Rate 823.7 mL/min (90-130)
[2020-12-15] MEDS: levothyroxine 125 mcg Tablet 62.5 MCG PO (09:34)
[2020-12-15] MEDS: baclofen 10 mg Tablet 20 MG PO ×2 (09:34→17:59)
[2020-12-15] MEDS: lactobacillus 1 Tablet 1 TAB PO ×3 (09:35→17:59)
[2020-12-15] MEDS: magnesium sulfate premix 2 GM/50 ML PIGGYBACK IV (09:35)
[2020-12-15] MEDS: pantoprazole DR 40 mg Tablet PO (09:35)
--- NOTE | 2020-12-15 10:48 | CT_ITS ---
WS: [id number] CT ABDOMEN PELVIS TECHNIQUE: Noncontrast CT of the abdomen and pelvis with coronal and sagittal reformatted images. CLINICAL INFORMATION: recurrent uti, suprapubic cath, COMPARISON: CT November 23, 2017 DLP: 1738.[address] scans at [facility] use at least one of these dose optimization techniques: automated e xposure control; mA and/or kV adjustment per patient size (includes targeted exams where dose is matc hed to clinical indication); or iterative reconstruction. FINDINGS: Tiny bilateral pleural effusions. Compressive atelectasis in the lung bases. Noncontrast liver is nor mal. Cholecystectomy clips. Noncontrast spleen is normal. Normal GE junction. Mild fatty atrophy of t he pancreas. Adrenal glands are normal. Diffuse body wall anasarca. Adrenal glands are normal. No hyd ronephrosis in either kidney. No obstructing renal or ureteral calculi. Normal appendix in the right lower quadrant. Suprapubic catheter. Bladder is decompressed. Tiny amount of free fluid in the right pelvis. No evidence of small or large bowel obstruction. Normal caliber abdominal aorta. A few prominent inguinal lymph nodes likely reactive. Mild lumbar cur ve. Sclerotic changes involving the femoral heads bilaterally suspicious for avascular necrosis. Prio r postoperative changes mid sacral resection. CT/CT kidney stone [id number] IMPRESSION: 1. Small bilateral pleural effusions compressive atelectasis in the lung bases . 2. Suprapubic catheter with decompressed bladder. 3. No hydronephrosis in either kidney. No obstructing renal or ureteral calcul i. 4. Prior postoperative changes mid sacral resection. 5. Diffuse body wall anasarca.
--- NOTE | 2020-12-15 11:00 | PC.SOCIAL ---
IMM Update Pg. 2 Of IMM updated and reviewed with patient, copy provided.
--- NOTE | 2020-12-15 11:10 | PC.NURSE ---
patient taken to CT by bed and staff
[2020-12-15 11:47] LABS: Add Urine Microscopic? YES; Bacteria Urine TRACE /hpf; Bilirubin Urine Neg (Negative); Blood Urine Neg (Negative); Glucose Urine UA Norm (Normal); Ketones Urine Negative (Negative); Leukocyte Esterase Urine 1+ (Negative); Nitrate Urine Negative (Negative); Protein Urine Neg (Negative); Specific Gravity, Urine 1.015 (1.005-1.030); Urine Appearance Clear (CLEAR); Urine Color Yellow (Yellow); Urobilinogen Urine Norm (Negative); WBC Urine 0-4 /hpf (0-5); pH Urine 6.5 (5-7)
[2020-12-15] MEDS: piperacillin-tazobactam 3.375 GM in sodium chloride 0.9% (plus) 50 ML IV ×2 (12:25→18:04)
--- NOTE | 2020-12-15 12:49 | PM.CONSULT ---
Providers/Reason For Consult Consulting Physician/Specialty*: General Surgery Dr. Gustafson Reason for Consult*: Left heel ulcer Attending Physician: Joao Colby MD Primary Care Provider: Jarod Cherry MD History of Present Illness History of Present Illness Deborah Viramontes is a 55 year old female with multiple comorbidities who was recently hospitalized for failed outpatient therapy for recurrent UTI. Patient was started on IV antibiotics on hospitalization. Initially she had altered mental status which is now improved. She was noted to have an eschar on her left heel. Patient thinks that she developed this after trauma from her foot being positioned improperly on the wheelchair. Patient denies significant pain. No prior wounds at this site Review of Systems General: Reports: 10 or more systems reviewed and unremarkable except in HPI and below Meds/Allergies Home Medications and Allergies Home Medications Medication Instructions Recorded Confirmed Last Taken Type albuterol sulfate 2.5 mg INHALATION Q4H PRN 03/21/19 12/11/20 Unknown History magnesium oxide 400 mg PO DAILY@10 03/21/19 12/11/20 09/02/20 History montelukast 10 mg tablet 10 mg PO DAILY@18 tab 03/21/19 12/11/20 12/10/20 18:00 History pseudoephedrine HCl 60 mg tablet 30 mg PO Q12H tab 03/21/19 12/11/20 09/03/20 History sertraline 100 mg tablet 150 mg PO DAILY@02 tab 03/21/19 12/11/20 09/02/20 History tizanidine 4 mg capsule 4 mg PO Q12H PRN 03/21/19 12/10/20 Unknown History zinc gluconate 100 mg tablet 100 mg PO DAILY@18 03/21/19 12/11/20 09/02/20 History levothyroxine 125 mcg tablet 62.5 mcg PO DAILY tab 07/02/19 12/11/20 09/02/20 History fluticasone propionate 100 1 inh INHALATION BID PRN 07/24/19 12/10/20 Unknown History mcg/actuation blister powder for inhalation Wheel Chair Repairs #1 ea 11/06/19 12/11/20 Unknown Rx ipratropium bromide 17 1 puff INHALATION BID PRN 06/11/20 12/10/20 Unknown History mcg/actuation HFA aerosol inhaler sumatriptan succinate 50 mg tablet 50 mg PO BID PRN tab 06/11/20 12/10/20 Unknown History fluconazole 150 mg tablet See Rx Instructions .ROUTE 11/14/20 12/10/20 12/07/20 10:00 Rx .COMPLEX #7 tab morphine 15 mg tablet,extended 15 mg PO Q12H 30 Days #90 tab 11/20/20 12/10/20 12/10/20 10:00 Rx release cholecalciferol (vitamin D3) 10 mcg PO DAILY@18 12/10/20 12/11/20 Unknown History [Vitamin D3] clonazepam 0.5 mg PO DAILY PRN 12/10/20 12/11/20 Unknown History cyclobenzaprine 10 mg PO BID PRN 12/10/20 12/11/20 Unknown History gentamicin 1 applic TOPICAL DAILY 12/10/20 12/11/20 Unknown History levofloxacin 500 mg PO DAILY@18 12/10/20 12/11/20 Unknown History oxycodone 10 mg PO Q12H PRN 12/10/20 12/11/20 Unknown History pregabalin [Lyrica] 100 mg PO Q12H 12/10/20 12/11/20 Unknown History ascorbic acid (vitamin C) [Vitamin 500 mg PO DAILY 12/11/20 12/11/20 Unknown History C] baclofen See Rx Instructions .ROUTE .COMPLEX 12/11/20 12/11/20 Unknown History fludrocortisone 0.05 - 0.1 mg PO PRN 12/11/20 12/11/20 Unknown History methylphenidate HCl 20 mg PO TID PRN 12/11/20 12/11/20 Unknown History potassium gluconate 99 mg PO DAILY 12/11/20 12/11/20 Unknown History prednisone 10 mg PO PRN 12/11/20 12/11/20 Unknown History vitamin B complex 1 tab PO DAILY 12/11/20 12/11/20 Unknown History warfarin 3.75 mg PO DAILY@02 12/11/20 12/11/20 Unknown History Allergies Allergy/AdvReac Type Severity Reaction Status Date / Time erythromycin base Allergy Unknown Verified 12/11/20 13:09 interferon beta-1b Allergy Unknown Verified 12/11/20 13:09 [From Betaseron] lorazepam [From Ativan] Allergy Unknown Verified 12/11/20 13:09 Current Medications Current Medications Generic Name Dose Route Start Last Admin Trade Name Freq PRN Reason Stop Dose Admin Albuterol Sulfate 2.5 mg 12/13/20 13:49 12/13/20 14:20 Albuterol 2.5 Mg/0.5 Ml Neb INHALATION 2.5 mg Q6H.RESPIRATORY PRN Administration SHORTNESS OF BREATH Baclofen 20 mg 12/11/20 10:00 12/15/20 09:34 Baclofen 10 Mg Tablet PO 20 mg 1000 KALIA Administration Baclofen 25 mg 12/11/20 02:00 12/15/20 01:11 Baclofen 10 Mg Tablet PO 25 mg 0200 KALIA Administration Baclofen 20 mg 12/11/20 18:00 12/14/20 18:34 Baclofen 10 Mg Tablet PO 20 mg 1800 KALIA Administration Bisacodyl 5 mg 12/11/20 12:04 12/12/20 11:25 Bisacodyl 5 Mg Tablet PO 5 mg DAILY PRN Administration CONSTIPATION Enoxaparin Sodium 70 mg 12/13/20 14:30 12/14/20 13:54 Enoxaparin 80 Mg/0.8 Ml Syringe SUBCUT 70 mg Q12H KLAIA Administration Sodium Chloride 1,000 mls @ 50 mls/hr 12/10/20 22:30 12/15/20 01:03 Sodium Chloride 0.9% IV 75 mls/hr .Q20H KALIA Administration Piperacillin Sod/Tazobactam 50 mls @ 12.5 mls/hr 12/15/20 11:30 12/15/20 12:25 Sod 3.375 gm/ Sodium Chloride IV 12.5 mls/hr Q8H KALIA Administration Protocol Lactobacillus Acidophilus 1 tab 12/12/20 12:00 12/15/20 12:25 Lactobacillus 1 Tablet PO 1 tab TIDWM KALIA Administration Levothyroxine Sodium 62.5 mcg 12/11/20 10:00 12/15/20 09:34 Levothyroxine 125 Mcg Tablet PO 62.5 mcg 1000 KALIA Administration Montelukast Sodium 10 mg 12/11/20 18:00 12/14/20 18:34 Montelukast Sodium 10 Mg Tablet PO 10 mg 1800 KALIA Administration Morphine Sulfate 15 mg 12/11/20 00:15 12/15/20 12:25 Morphine Er (12 Hr) 15 Mg Tablet PO 15 mg Q12H KALIA Administration Ondansetron HCl 4 mg 12/10/20 22:27 12/14/20 18:47 Ondansetron 2 Mg/Ml Sdv 2 Ml IVP 4 mg Q8H PRN Administration vomiting, or N/V if npo Oxycodone HCl 10 mg 12/11/20 18:02 12/14/20 08:14 Oxycodone 5 Mg Ir Tab/Cap PO 10 mg BID PRN Administration PAIN Pantoprazole Sodium 40 mg 12/11/20 09:00 12/15/20 09:[address] 40 Mg Tablet PO 40 mg DAILY KALIA Administration Pregabalin 100 mg 12/11/20 00:15 12/15/20 12:25 Pregabalin 100 Mg Capsule PO 100 mg Q12H KALIA Administration Sertraline HCl 150 mg 12/11/20 02:00 12/15/20 01:09 Sertraline 100 Mg Tablet PO 150 mg 0200 KALIA Administration PFSH Acute PFSH: Medical History Pedro disease Antiphospholipid syndrome AVN of femur High risk medication use Hx of deep venous thrombosis Hx of pulmonary embolus Inflammatory arthritis Multiple sclerosis Neuralgia and neuritis, unspecified Positive JARRED (antinuclear antibody) Recurrent UTI Systemic lupus erythematosus, unspecified Surgical History H/O chest tube placement History of bone marrow biopsy Hx of cholecystectomy Family History Denies family history of Rheumatoid arthritis Lupus Social History Smoking and tobacco status: former smoker Quit status (tobacco): has quit using tobacco Year quit tobacco: 2009 Former quit date comment: Hx of 1 PPD x 13 Years Smoking risk assessment/counseling performed?: No Alcohol intake: former Counseling given: No Counseling given: No Caregiver/support person: Yes () Lives independently: Yes Household members: spouse Marital status: Current occupational status: disabled History of recent travel: No Current gender identity: Female Vitals/I&O/Wt Last Vital Signs Temp 97.8 F 12/15/20 11:40 Pulse 68 12/15/20 11:40 Resp 15 12/15/20 11:40 BP 95/63 12/15/20 11:40 Pulse Ox 91 12/15/20 11:40 12/14/20 12/15/20 12/15/20 22:59 06:59 14:59 Intake Total 1582019 100 2019 150 / 150 Output Total 1149 821969 750 / 750 Balance 430 / 50 -720 / 50 -600 / -600 Weight last 48 hrs Weight 149 lb Physical Exam Narrative: EXAM NARRATIVE: HEENT: Normocephalic Eye: Sclera /conjunctiva normal Abdomen: Soft to palpation Neurological: Oriented to place person and time Skin: Intact, 3 x 4 cm unstageable ulcer left heel Data Micro: Micro: Microbiology 12/11/20 00:10 Urine Culture - Fi nal Urine,Clean Catch Pseudomonas aer uginosa A&P Assessment and plan (1) Decubitus ulcer of left heel, unstageable: 55-year-old female with multiple comorbidities who is wheelchair-bound with limited mobility who has now developed unstageable left heel ulcer. Debridement could not be performed today due to limitations with OR scheduling. Plan for debridement left heel under MAC tomorrow Procedure, risks, benefits and alternatives have been discussed with the patient who wishes to proceed with surgery. 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
--- NOTE | 2020-12-15 17:35 | P.PN_ITS ---
Subjective Subjective: Interval history: Patient was seen this morning, her is at bedside, she continues to complain of bladder spasms, no fevers, no chills overnight, but tells me that she did have an episode of nausea, this typically happens when she has a urinary tract infection, Vitals/I&O/Wt Last Vital Signs Temp 98.1 F 12/15/20 15:14 Pulse 68 12/15/20 15:14 Resp 16 12/15/20 15:14 BP 90/57 12/15/20 15:14 Pulse Ox 91 12/15/20 15:14 12/15/20 12/15/20 12/15/20 06:59 14:59 22:59 Intake Total 100 / 2020 390 / 390 50 / 440 Output Total 820 / 1970 750 / 750 200 / 950 Balance -720 / 50 -360 / -360 -150 / -510 Weight last 48 hrs Weight 67.585 kg Physical Exam Const: COMMON NORMALS: no acute distress ORIENTATION/CONSCIOUSNESS: Yes awake, Yes oriented to person, Yes oriented to place and Yes oriented to time Resp: COMMON NORMALS: normal respiratory effort, No retractions, No use of accessory muscles and clear to auscultation bilaterally AUSCULTATION: clear to auscultation bilaterally Cardio: COMMON NORMALS: regular rate, regular rhythm, S1 normal heart sound present and S2 normal heart sound present RATE: regular rate RHYTHM: regular rhythm HEART SOUNDS: S1 normal heart sound present and S2 normal heart sound present GI: COMMON NORMALS: Normal to inspection, nondistended, normoactive bowel sounds present, Soft to palpation and non-tender PALPATION: Yes Soft to palpation Extremity: COMMON NORMALS: no pedal edema Neuro: SENSORIUM/ORIENTATION: Yes oriented to person, Yes oriented to place and Yes oriented to time Data : 12/15/20 05:20 12/15/20 05:20 A&P Assessment and plan (1) UTI (urinary tract infection) due to urinary indwelling catheter: Overall she is improving, although states improvement is very incremental . Antibiotic course likely for 7 days, but may depend on her condition. Currently growing Pseudomonas in urine from admission, intermediate sensitivity to Primaxin, still having bladder spasms feeling unwell this morning, switch to Zosyn, repeat urinalysis and urine cultures and blood cultures, will do CT scan of abdomen pelvis to evaluate for possible obstructive uropathy Pseudomonal resistant to oral antibiotics on culture at the end of October. Plan for today continue change antibiotic coverage to Zosyn, repeat cultures, CT scan, awaiting surgical debridement Status: Acute (2) Deep tissue injury: Tentatively plan for debridement on Tuesday. In the meantime wound care with Santyl. Warfarin on hold. Bridging with Lovenox. Hold Lovenox for surgery, no need to reverse INR as long as below 2. Plantar left heel, with black necrotic tissue/shallow ulceration, unknown condition underneath, poorly formed after a blood blister. Appears moist, no significant surrounding erythema. No drainage. Apply Santyl. Discussed with wound care, tentative plan for debridement on Tuesday. Discussed with her , warfarin will need to be held, recheck INR. Bridge with Lovenox. Subsequently restart warfarin, she targets INR 2.5-3.5 due to antiphospholipid syndrome. Status: Acute (3) Multiple sclerosis: Status: Acute (4) Pulmonary embolus: Status: Acute (5) Hx of pulmonary embolus: Status: Acute (6) Antiphospholipid syndrome: Status: Acute Additional A&P Information Acute encephopathy: Improving Likely infectious End stage MS / Spastic quadriplegia: At baseline Obesity hypoventilation syndrome Clarify if using bipap qhs Duoneb q6hr Supplemental o2 as needed Hx of Multiple PE: Recheck INR On coumadin usually Hold coumadin for now. Lovenox bridging. Goal INR she targets INR 2.5-3.5 Depression Zoloft 150 mg PO daily Sacral decubitus ulcer / Heel: Stage IV 2 x 3 cm sacral, deeper ulceration, very close to bone, although did not see bone exposure, covered by thin layer of subcutaneous tissue on probing. Left hip, 2 x 2 cm stage IV, no probe to bone, minimal layer of necrotic tissue at base. Right hip healed stage IV, with dimple 1 x 1 cm. Inferior medially area 3 x 3 cm of shear damage, possibly on hold healed pressure ulcer. Wound care. Left heel 4 x 4 cm plantar DTI -as above. Constipation: Dulcolax Attestations Medical Necessity Statement*: Requires hospitalization for UTI, heel DTI, Coding Level of Care Code Acute Lot Associate for [facility] Diagnoses UTI (urinary tract infection) due to urinary indwelling catheter T83.511A; N39.0 Deep tissue injury T14.8XXA Multiple sclerosis G35 Pulmonary embolus I26.99 Hx of pulmonary embolus Z86.711 Antiphospholipid syndrome D68.61
[2020-12-15] MEDS: zinc gluconate 50 mg Tablet 100 MG PO (17:59)
[2020-12-15] MEDS: montelukast sodium 10 mg Tablet PO (17:59)
[2020-12-15] MEDS: sodium chloride 0.9% 1,000 ML 50 ML IV (18:00)
[2020-12-15] MEDS: magnesium oxide 400 mg tablet PO (18:04)
[2020-12-15] MEDS: enoxaparin 100 mg/mL Syringe 70 MG SUBCUT (18:04)
[2020-12-15] MEDS: ondansetron 2 mg/ML SDV 2 mL 4 MG IVP (23:10)
[2020-12-16] VITALS (17 sets, daily range): BP systolic 85–103; BP diastolic 53–67; PULSE 64–83; RESP 12–18; TEMP 36.1–36.9; O2SAT 90–100
[2020-12-16] MEDS: sodium chloride 0.9% 500 ML IV (00:53)
[2020-12-16] MEDS: sertraline 100 mg Tablet 150 MG PO (01:57)
[2020-12-16] MEDS: baclofen 10 mg Tablet 25 MG PO (01:58)
[2020-12-16] MEDS: pregabalin 100 mg Capsule PO ×2 (02:00→11:48)
[2020-12-16] MEDS: piperacillin-tazobactam 3.375 GM in sodium chloride 0.9% (plus) 50 ML IV (03:24)
[2020-12-16 06:12] LABS: Basophils % 0.5 %; Eosinophils # 0.1 10^3/uL (0.0-0.8); Eosinophils % 1.8 %; Hematocrit 34.2 % (37.0-47.0); Hemoglobin 10.8 g/dL (11.5-15.3); Lymphocytes # 1.4 10^3/uL (0.8-4.8); Lymphocytes % 21.1 %; Mean Corpuscular HGB Conc 31.6 g/dL (30.0-36.0); Mean Corpuscular Hemoglobin 28.9 pg (28.0-34.0); Mean Corpuscular Volume 91.4 fl (81-99); Mean Platelet Volume 12.8 fL (7.4-10.4); Monocytes # 0.3 10^3/uL (0.2-0.9); Monocytes % 5.1 %; Neutrophils # 4.63 10^3/uL (1.8-7.7); Neutrophils % 70.9 %; Nucleated Red Blood Cells % 0 %; Platelet Count 79 10^3/cmm (130-400); Red Blood Count 3.74 10^6/uL (4.1-5.3); Red Cell Distribution Width 14.7 % (12.1-15.1); White Blood Count 6.5 10^3/uL (4.0-10.0)
[2020-12-16 06:29] LABS: INR 2.24 (0.8-1.2)
[2020-12-16] MEDS: sodium chloride 0.9% 1,000 ML 30 ML IV (06:47)
--- NOTE | 2020-12-16 06:50 | SUR.PREOP ---
breathing treatment admin by RT in preop
[2020-12-16 06:51] LABS: Alanine Aminotransferase < 5 U/L (0-33); Albumin Level 2.5 g/dL (3.5-5.2); Alkaline Phosphatase 97 IU/L (35-105); Aspartate Amino Transferase 14 U/L (0-32); Blood Urea Nitrogen 8 mg/dL (6-20); C Reactive Protein 12.9 mg/L (0.0-4.9); Calcium 7.8 mg/dL (8.5-10.5); Carbon Dioxide 25 mmol/L (22-29); Chloride 111 mmol/L (98-107); Globulin 2.5 g/dL (1.3-4.6); Glomerular Filtration Rate 128.6 mL/min (90-130); Glucose 94 mg/dL (65-115); Magnesium 1.9 mg/dL (1.7-2.3); Osmolality Calculated 294 mOsm/kg (285-295); Phosphorus 3.1 mg/dL (2.5-4.5); Sodium 143 mmol/L (136-145); Total Bilirubin 0.2 mg/dL (0.15-1.2)
[2020-12-16 06:52] LABS: Anion Gap 10.5 (5-19); Potassium 3.5 mmol/L (3.5-5.1)
--- NOTE | 2020-12-16 06:57 | ANES.PREANE2 ---
Pre-Anesthetic Assessment Pre-Anesthetic Assessment: Height/Weight: Height 1.66 m Weight 67.585 kg Temp Pulse Resp BP Pulse Ox 97.2 F L 69 18 100/60 98 12/16/20 06:38 12/16/20 06:38 12/16/20 06:38 12/16/20 06:38 12/16/20 06:38 Preop Diagnosis: Decubitus ulcer left heel Proposed Procedure: Operation Date: 12/16/20 07:00 Proposed Procedures p heel debridement(Left) - Ruben Gustafson MD Was Beta Lydia taken within 24 hours: N/A Was Clonidine taken within 24 hours: N/A Social: Social History: No alcohol and No tobacco Exam: Pre-Anes Outpt Exam: alert, oriented x 3, clear to auscultation bilaterally and regular rate & rhythm Airway: Submandibular: WNL Cervical ROM: WNL MP: 2 Pulmonary: Pulmonary: Asthma CV/HEM: CV/HEM: DVT (PE--anticoagulation) Metabolic: Metabolic: Thyroid Comments: Antiphospholipid, Pedro's Musc/skel: Musc/skel: Weakness Comments: Chronic pain/ spastic MS , wheelchair bound Anesthetic Plan: ASA status: 3 Anesthesia: Choice Risk of > 500 ml blood loss (7ml/kg in children): No Meds/Allergies Current Medications: Current Medications Generic Name Dose Route Start Last Admin Trade Name Freq PRN Reason Stop Dose Admin Albuterol Sulfate 2.5 mg 12/13/20 13:49 12/15/20 20:08 Albuterol 2.5 Mg /0.5 Ml Neb INHALATION 2.5 mg Q6H.RESPIRATORY P RN Administration SHORTNESS OF GABRIELLA TH Baclofen 20 mg 12/11/20 10:00 12/15/20 09:34 Baclofen 10 Mg T ablet PO 20 mg 1000 KALIA Administration Baclofen 25 mg 12/11/20 02:00 12/16/20 01:58 Baclofen 10 Mg T ablet PO 25 mg 0200 KALIA Administration Baclofen 20 mg 12/11/20 18:00 12/15/20 17:59 Baclofen 10 Mg T ablet PO 20 mg 1800 KALIA Administration Bisacodyl 5 mg 12/11/20 12:04 12/12/20 11:25 Bisacodyl 5 Mg T ablet PO 5 mg DAILY PRN Administration CONSTIPATION Sodium Chloride 1,000 mls @ 50 ml s/hr 12/10/20 22:30 12/15/20 18:00 Sodium Chloride 0.9% IV 50 mls/hr .Q20H KALIA Administration Piperacillin Sod/T azobactam 50 mls @ 12.5 mls /hr 12/15/20 11:30 12/16/20 03:24 Sod 3.375 gm/ So dium Chloride IV 12.5 mls/hr Q8H KALIA Administration Protocol Sodium Chloride 1,000 mls @ 30 ml s/hr 12/16/20 06:45 12/16/20 06:47 Sodium Chloride 0.9% IV 12/17/20 06:44 30 mls/hr .Q24H KALIA Administration Lactobacillus Acid ophilus 1 tab 12/12/20 12:00 12/15/20 17:59 Lactobacillus 1 Tablet PO 1 tab TIDWM KALIA Administration Levothyroxine Sodi um 62.5 mcg 12/11/20 10:00 12/15/20 09:34 Levothyroxine 12 5 Mcg Tablet PO 62.5 mcg 1000 KALIA Administration Magnesium Oxide 400 mg 12/15/20 18:00 12/15/20 18:04 Magnesium Oxide 400 Mg Tablet PO 400 mg BID KALIA Administration Montelukast Sodium 10 mg 12/11/20 18:00 12/15/20 17:59 Montelukast Sodi um 10 Mg Tablet PO 10 mg 1800 KALIA Administration Morphine Sulfate 15 mg 12/11/20 00:15 12/15/20 12:25 Morphine Er (12 Hr) 15 Mg Tablet PO 15 mg Q12H KALIA Administration Non-Formulary Medi cation 10 mcg 12/15/20 18:00 12/15/20 17:26 Cholecalciferol (Vitamin D3) [Vanesa min D3] PO Not Given DAILY@18 KALIA Ondansetron HCl 4 mg 12/10/20 22:27 12/15/20 23:10 Ondansetron 2 Mg /Ml Sdv 2 Ml IVP 4 mg Q8H PRN Administration vomiting, or N/V if npo Oxycodone HCl 10 mg 12/11/20 18:02 12/14/20 08:14 Oxycodone 5 Mg I r Tab/Cap PO 10 mg BID PRN Administration PAIN Pantoprazole Sodiu m 40 mg 12/11/20 09:00 12/15/20 09:[address] 40 Mg Tablet PO 40 mg DAILY KALIA Administration Pregabalin 100 mg 12/11/20 00:15 12/16/20 02:00 Pregabalin 100 M g Capsule PO 100 mg Q12H KALIA Administration Sertraline HCl 150 mg 12/11/20 02:00 12/16/20 01:57 Sertraline 100 M g Tablet PO 150 mg 0200 KALIA Administration Zinc Gluconate 100 mg 12/15/20 18:00 12/15/20 17:59 Zinc Gluconate 5 0 Mg Tablet PO 100 mg DAILY@18 KALIA Administration PFSH Anesthesia PFSH: Medical History [place] disease Antiphospholipid syndrome AVN of femur High risk medication use Hx of deep venous thrombosis Hx of pulmonary embolus Inflammatory arthritis Multiple sclerosis Neuralgia and neuritis, unspecified Positive JARRED (antinuclear antibody) Recurrent UTI Systemic lupus erythematosus, unspecified Surgical History H/O chest tube placement History of bone marrow biopsy Hx of cholecystectomy Family History Denies family history of Rheumatoid arthritis Lupus Social History Smoking and tobacco status: former smoker Quit status (tobacco): has quit using tobacco Year quit tobacco: 2009 Former quit date comment: Hx of 1 PPD x 13 Years Smoking risk assessment/counseling performed?: No Alcohol intake: former Counseling given: No Counseling given: No Caregiver/support person: Yes () Lives independently: Yes Household members: spouse Marital status: Current occupational status: disabled History of recent travel: No Current gender identity: Female Data Anesthesia CBC & Chem 7: 12/16/20 05:29 12/16/20 05:29 Other Labs: Laboratory Results - last 48 hr 12/14/20 12/15/20 12/15/20 04:59 05:20 05:20 WBC 5.3 RBC 3.95 L Hgb 11.0 L Hct 36.1 L MCV 91.4 MCH 27.8 L MCHC 30.5 RDW 14.4 Plt Count 105 L MPV 12.4 H Neut % (Auto) 60.0 Lymph % (Auto) 30.1 [place] % (Auto) 6.6 Eos % (Auto) 2.3 Baso % (Auto) 0.8 Neut # (Auto) 3.18 Lymph # (Auto) 1.6 [place] # (Auto) 0.4 Eos # (Auto) 0.1 Baso # (Auto) 0.0 Nucleated RBC % (auto) 0 Nucleated RBCs # 0.0 PT INR Sodium 143 Potassium 3.5 Chloride 112 H Carbon Dioxide 23 Anion Gap 11.5 BUN 4 L Creatinine 0.1 L GFR Calculation 823.7 H Glucose 80 Calculated Osmolality 292 Calcium 8.0 L Phosphorus 2.8 Magnesium 1.6 L Total Bilirubin 0.2 AST 12 12 ALT < 5 Alkaline Phosphatase 100 C-Reactive Protein Total Protein 5.2 L Albumin 2.6 L Globulin 2.6 Urine Color Urine Appearance Urine pH Ur Specific [place] Urine Protein Urine Glucose (UA) Urine Ketones Urine Blood Urine Nitrate Urine Bilirubin Urine Urobilinogen Ur Leukocyte Esterase Urine RBC Urine WBC Ur Squamous Epith Cells Amorphous Sediment Urine Bacteria 12/15/20 12/15/20 12/16/20 05:20 10:58 05:29 WBC 6.5 RBC 3.74 L Hgb 10.8 L Hct 34.2 L MCV 91.4 MCH 28.9 MCHC 31.6 RDW 14.7 Plt Count 79 L MPV 12.8 H Neut % (Auto) 70.9 Lymph % (Auto) 21.1 [place] % (Auto) 5.1 Eos % (Auto) 1.8 Baso % (Auto) 0.5 Neut # (Auto) 4.63 Lymph # (Auto) 1.4 [place] # (Auto) 0.3 Eos # (Auto) 0.1 Baso # (Auto) 0.0 Nucleated RBC % (auto) 0 Nucleated RBCs # 0.0 PT 21.90 H INR 1.86 H Sodium Potassium Chloride Carbon Dioxide Anion Gap BUN Creatinine GFR Calculation Glucose Calculated Osmolality Calcium Phosphorus Magnesium Total Bilirubin AST ALT Alkaline Phosphatase C-Reactive Protein Total Protein Albumin Globulin Urine Color Yellow Urine Appearance Clear Urine pH 6.5 Ur Specific [place] 1.015 Urine Protein Neg Urine Glucose (UA) Norm Urine Ketones Negative Urine Blood Neg Urine Nitrate Negative Urine Bilirubin Neg Urine Urobilinogen Norm Ur Leukocyte Esterase 1+ H Urine RBC None Urine WBC 0-4 H Ur Squamous Epith Cells None Amorphous Sediment Not Reportable Urine Bacteria Trace 12/16/20 12/16/20 05:29 05:29 WBC RBC Hgb Hct MCV MCH MCHC RDW Plt Count MPV Neut % (Auto) Lymph % (Auto) [place] % (Auto) Eos % (Auto) Baso % (Auto) Neut # (Auto) Lymph # (Auto) [place] # (Auto) Eos # (Auto) Baso # (Auto) Nucleated RBC % (auto) Nucleated RBCs # PT 25.30 H INR 2.24 H Sodium 143 Potassium 3.5 Chloride 111 H Carbon Dioxide 25 Anion Gap 10.5 BUN 8 Creatinine 0.5 GFR Calculation 128.6 Glucose 94 Calculated Osmolality 294 Calcium 7.8 L Phosphorus 3.1 Magnesium 1.9 Total Bilirubin 0.2 AST 14 ALT < 5 Alkaline Phosphatase 97 C-Reactive Protein 12.9 H Total Protein 5.0 L Albumin 2.5 L Globulin 2.5 Urine Color Urine Appearance Urine pH Ur Specific [place] Urine Protein Urine Glucose (UA) Urine Ketones Urine Blood Urine Nitrate Urine Bilirubin Urine Urobilinogen Ur Leukocyte Esterase Urine RBC Urine WBC Ur Squamous Epith Cells Amorphous Sediment Urine Bacteria Micro: Microbiology 12/15/20 05:29 Blood Culture - Preliminary Blood SPECIMEN COLLECTED 12/15/20 05:53 Blood Culture - Preliminary Blood SPECIMEN COLLECTED 12/10/20 22:25 Blood Culture - Final Blood NO GROWTH AFTER 5 DAYS 12/10/20 22:08 Blood Culture - Final Blood NO GROWTH AFTER 5 DAYS Cardiac Studies: No Data to Display
[2020-12-16 06:58] LABS: Procalcitonin 0.03 ng/mL (0-0.5)
--- NOTE | 2020-12-16 07:33 | P.PN_ITS ---
Subjective Subjective: Interval history: No issues overnight Vitals/I&O/Wt Last Vital Signs Temp 97.2 F L 12/16/20 06:38 Pulse 69 12/16/20 06:38 Resp 18 12/16/20 06:38 BP 100/60 12/16/20 06:38 Pulse Ox 98 12/16/20 06:38 12/15/20 12/16/20 12/16/20 22:59 06:59 14:59 Intake Total 200 / 1590 Output Total 200 / 1430 480 / 1430 Balance 0 / 160 -480 / 160 Physical Exam Narrative: EXAM NARRATIVE: unstagelable ulcer left heel Data : 12/16/20 05:29 12/16/20 05:29 Micro: Microbiology 12/15/20 05:29 Blood Culture - Preliminary Blood SPECIMEN COLLECTED 12/15/20 05:53 Blood Culture - Preliminary Blood SPECIMEN COLLECTED 12/10/20 22:25 Blood Culture - Final Blood NO GROWTH AFTER 5 DAYS 12/10/20 22:08 Blood Culture - Final Blood NO GROWTH AFTER 5 DAYS A&P Assessment and plan (1) Decubitus ulcer of left heel, unstageable: 55-year-old female with multiple comorbidities who is wheelchair-bound with limited mobility who has now developed unstageable left heel ulcer. Plan for debridement left heel under MAC today Procedure, risks, benefits and alternatives have been discussed with the patient who wishes to proceed with surgery. Patient will need follow-up in wound care Status: Acute Attestations Medical Necessity Statement*: as per primary Coding Level of Care Code Acute Rn Case Manager [facility] Diagnoses Decubitus ulcer of left heel, unstageable L89.620
--- NOTE | 2020-12-16 07:49 | PC.NURSE ---
patient taken to OR prior to shift change
[2020-12-16] MEDS: morphine 4 mg/mL SDV 1 mL 2 MG IVP (08:29)
[2020-12-16 10:48] LABS: LAB Peripheral Smear Sent for Review
[2020-12-16 11:27] LABS: Glucose Point of Care 103 mg/dL (70-110)
[2020-12-16] MEDS: morphine ER (12 HR) 15 mg Tablet PO (11:48)
[2020-12-16] MEDS: lactobacillus 1 Tablet 1 TAB PO (11:48)
--- NOTE | 2020-12-16 12:44 | PM.DCS ---
Discharge Providers Date of Admission: 12/10/20 20:18 Date of Discharge: December 16, 2020 Attending Provider at Admission: Emilia Kelly Attending Provider at Discharge: Joao Colby MD Primary Care Provider: Jarod Cherry MD Diagnoses at Discharge Discharge Diagnosis (1) Decubitus ulcer of left heel, unstageable: Status: Acute Reason for Visit Reason for Visit: Confusion\UTI Hospital Course Hospital Course This is a 55-year-old female with a past medical history of multiple sclerosis, neurogenic bladder, suprapubic catheter, history of recurrent UTIs, history of multidrug-resistant Pseudomonas, quadriplegia, antiphospholipid syndrome, Millard's disease, history of pulmonary embolism on Coumadin who presents to [facility] due to concerns for altered mental status Patient was admitted to [facility] for altered mental status secondary to UTI, Pseudomonas, multidrug resistant, was managed with Primaxin initially, switched to Zosyn, repeat blood cultures remain unremarkable, CT scan of abdomen pelvis did not show any obstructive uropathy, clinically improved, remained afebrile. Patient is finished her inpatient IV antibiotic therapy, for 5 total days Patient was also found to have a DTI plantar aspect of left heel, status post debridement by Dr. Gustafson, will be discharged on wet-to-dry dressings once daily, follow-up with wound care, will eventually require wound VAC Patient's platelet count decreased during her hospitalization, no evidence of thrombosis, no significant evidence of bleeding, platelet count was 76,000, HIT panel was sent out, heparin products were stopped, is fairly unlikely that she has developed HIT however given her decline platelet count after receiving heparin products there is some degree of suspicion. Nonetheless she has been discharged on Xarelto as below, follow with Dr. Coronado as outpatient, for HIT panel, peripheral smear. For history of pulmonary emboli, Coumadin was on hold for potential surgery, she will be bridged with Xarelto, until INR greater than 2.5, then discontinue. -For your history of DVT and antiphospholipid syndrome -You are being bridged with Xarelto and Coumadin -Continue Xarelto 20 mg once daily until your INR is greater than 2.5, then discontinue -Check your INR daily until INR is greater than 2.5 -Today's INR was 2.24 -If INR is greater than 2.5 can discontinue Xarelto -For Coumadin will discharge you on 3.5 mg on Tuesdays, , Tuesday, 4 mg the rest of the days -Further dosing based upon INR -Please have Dr. Cherry recheck INR -For your heel ulcer continue wet-to-dry dressings daily -Follow-up with wound care -Monitor for recurrent UTIs, monitor INR closely as you are on doxycycline -Take doxycycline for superficial cellulitis, DTI Physical Exam Const: COMMON NORMALS: no acute distress and patient oriented x3 Resp: COMMON NORMALS: normal respiratory effort, No retractions, No use of accessory muscles and clear to auscultation bilaterally AUSCULTATION: clear to auscultation bilaterally Cardio: COMMON NORMALS: regular rate, regular rhythm, S1 normal heart sound present and S2 normal heart sound present RATE: regular rate RHYTHM: regular rhythm HEART SOUNDS: S1 normal heart sound present and S2 normal heart sound present GI: COMMON NORMALS: Normal to inspection, nondistended, normoactive bowel sounds present, Soft to palpation and non-tender PALPATION: Yes Soft to palpation Extremity: COMMON NORMALS: no pedal edema Neuro: COMMON NORMALS: patient oriented x3 Psych: COMMON NORMALS: mental status grossly normal Discharge Data Data Completed and Pending: Completed Studies During Hospitalization Category Date Time Status CT kidney stone [id number] Stat Cat Scan 12/15/20 10:48 Completed Pending at discharge Category Date Time Status Blood Culture Sta t Lab 12/15/20 05:29 Results C Reactive Protei n AM LABS Lab 12/17/20 04:00 Ordered C Reactive Protei n AM LABS Lab 12/18/20 04:00 Ordered Complete Blood Co unt w/Auto AM LABS Lab 12/17/20 04:00 Ordered Comprehensive Met abolic Panel AM LA BS Lab 12/17/20 04:00 Ordered Heparin Induced T hrombocytopen Stat Lab 12/16/20 11:00 Received Magnesium AM LABS Lab 12/17/20 04:00 Ordered Phosphorus AM LAB S Lab 12/17/20 04:00 Ordered Procalcitonin AM LABS Lab 12/17/20 04:00 Ordered Procalcitonin AM LABS Lab 12/18/20 04:00 Ordered Prothrombin Time INR AM LABS Lab 12/17/20 04:00 Ordered Prothrombin Time INR AM LABS Lab 12/18/20 04:00 Ordered Urine Culture Sta t Lab 12/15/20 10:58 Results Pathology: Surgic al [PTH] Routine Pth 12/16/20 08:09 Received Labs from last 24 hours 12/16/20 12/16/20 12/16/20 11:00 11:00 05:29 WBC RBC Hgb Hct MCV MCH MCHC RDW Plt Count MPV Neut % (Auto) Lymph % (Auto) [place] % (Auto) Eos % (Auto) Baso % (Auto) Neut # (Auto) Lymph # (Auto) [place] # (Auto) Eos # (Auto) Baso # (Auto) Nucleated RBC % (a uto) Nucleated RBCs # Heparin Require Pa t Pending PT 25.30 H INR 2.24 H Sodium Potassium Chloride Carbon Dioxide Anion Gap BUN Creatinine GFR Calculation Glucose POC Glucose 103 Calculated Osmolal ity Calcium Phosphorus Magnesium Total Bilirubin AST ALT Alkaline Phosphata se C-Reactive Protein Total Protein Albumin Globulin Procalcitonin Heparin-induced Ab Pending UF Heparin Low Dos e 1 Pending UF Heparin Low Dos e 2 Pending UF Heparin High Do se Pending JENNIFER Unfract Hepari n Pending 12/16/20 12/16/20 05:29 05:29 WBC 6.5 RBC 3.74 L Hgb 10.8 L Hct 34.2 L MCV 91.4 MCH 28.9 MCHC 31.6 RDW 14.7 Plt Count 79 L MPV 12.8 H Neut % (Auto) 70.9 Lymph % (Auto) 21.1 [place] % (Auto) 5.1 Eos % (Auto) 1.8 Baso % (Auto) 0.5 Neut # (Auto) 4.63 Lymph # (Auto) 1.4 [place] # (Auto) 0.3 Eos # (Auto) 0.1 Baso # (Auto) 0.0 Nucleated RBC % (a uto) 0 Nucleated RBCs # 0.0 Heparin Require Pa t PT INR Sodium 143 Potassium 3.5 Chloride 111 H Carbon Dioxide 25 Anion Gap 10.5 BUN 8 Creatinine 0.5 GFR Calculation 128.6 Glucose 94 POC Glucose Calculated Osmolal ity 294 Calcium 7.8 L Phosphorus 3.1 Magnesium 1.9 Total Bilirubin 0.2 AST 14 ALT < 5 Alkaline Phosphata se 97 C-Reactive Protein 12.9 H Total Protein 5.0 L Albumin 2.5 L Globulin 2.5 Procalcitonin 0.03 Heparin-induced Ab UF Heparin Low Dos e 1 UF Heparin Low Dos e 2 UF Heparin High Do se JENNIFER Unfract Hepari n Vitals: Last Vital Signs Temp 98.4 F 12/16/20 11:19 Pulse 64 12/16/20 11:19 Resp 17 12/16/20 11:19 BP 97/67 12/16/20 11:19 Pulse Ox 98 12/16/20 11:19 Discharge Plan Discharge Patient Disposition: Home Condition: Stable Prescriptions: New Xarelto 10 mg Tablet 20 mg PO DAILY 10 Days Qty: 10 RF: 0 doxycycline hyclate 100 mg capsule 100 mg PO BID 5 Days Qty: 10 RF: 0 Continued sertraline 100 mg tablet 150 mg PO DAILY@02 RF: 0 pseudoephedrine HCl 60 mg tablet 30 mg PO Q12H RF: 0 zinc gluconate 100 mg tablet 100 mg PO DAILY@18 RF: 0 magnesium oxide 400 mg magnesium capsule 400 mg PO DAILY@10 RF: 0 tizanidine 4 mg capsule 4 mg PO Q12H PRN (Reason: Muscle Spasm) RF: 0 albuterol sulfate 2.5 mg /3 mL (0.083 %) solution for nebulization 2.5 mg INHALATION Q4H PRN (Reason: Shortness Of Breath) RF: 0 montelukast [Singulair] 10 mg tablet 10 mg PO DAILY@18 RF: 0 levothyroxine [Synthroid] 125 mcg tablet 62.5 mcg PO DAILY RF: 0 sumatriptan succinate [Imitrex] 50 mg tablet 50 mg PO BID PRN (Reason: Migraine Headache) RF: 0 Flovent Diskus 100 mcg/actuation blister with device 1 inh INHALATION BID PRN (Reason: Shortness Of Breath) RF: 0 Atrovent HFA 17 mcg/actuation HFA aerosol inhaler 1 puff INHALATION BID PRN (Reason: Shortness Of Breath) RF: 0 (DME) Wheel Chair Repairs See Rx Instructions .Route .MEDSUPPLY Qty: 1 RF: 0 fluconazole 150 mg tablet See Rx Instructions .ROUTE .COMPLEX Qty: 7 RF: 3 morphine 15 mg tablet extended release 15 mg PO Q12H 30 Days Qty: 90 RF: 0 cholecalciferol (vitamin D3) [Vitamin D3] 10 mcg (400 unit) Capsule 10 mcg PO DAILY@18 RF: 0 cyclobenzaprine 10 mg tablet 10 mg PO BID PRN (Reason: muscle spasm) RF: 0 clonazepam 0.5 mg tablet 0.5 mg PO DAILY PRN (Reason: anxiety) RF: 0 levofloxacin 500 mg tablet 500 mg PO DAILY@18 RF: 0 gentamicin 0.1 % ointment 1 applic TOPICAL DAILY RF: 0 pregabalin [Lyrica] 100 mg capsule 100 mg PO Q12H RF: 0 oxycodone 10 mg tablet 10 mg PO Q12H PRN (Reason: pain) RF: 0 Vitamin C 500 mg Tablet 500 mg PO DAILY RF: 0 baclofen 10 mg tablet See Rx Instructions .ROUTE .COMPLEX RF: 0 vitamin B complex Tablet 1 tab PO DAILY RF: 0 potassium gluconate 595 mg (99 mg) Tablet 99 mg PO DAILY RF: 0 prednisone 10 mg Tablet 10 mg PO PRN RF: 0 methylphenidate HCl 20 mg tablet 20 mg PO TID PRN (Reason: sleepiness) RF: 0 warfarin 1 mg tablet 3.75 mg PO DAILY@02 RF: 0 fludrocortisone 0.1 mg Tablet 0.05 - 0.1 mg PO PRN RF: 0 Discharge Orders: Discharge Order (Routine); Ordered 12/16/20 Ordered By: Joao Colby Referrals: [facility] [Outside] Jarod Cherry MD [Primary Care Provider] - 1-3 days (needs recheck INR tommorow, and daily until inr >2.5) Bird Coronado MD [Hospitalist] - 4-7 days ([facility], ) [facility], [Staff Physician] - 1-3 days Discharge Diet: Regular Discharge Activity: Resume usual activity Patient Instructions: Rivaroxaban (By mouth), Urinary Tract Infection in Women (DC), Holder Catheter Placement and Care (GEN), Opioid Safety, Wound Care (General) Activity Restrictions/Additional Instructions: -For your history of DVT and antiphospholipid syndrome -You are being bridged with Xarelto and Coumadin -Continue Xarelto 20 mg once daily until your INR is greater than 2.5, then discontinue -Check your INR daily until INR is greater than 2.5 -Today's INR was 2.24 -If INR is greater than 2.5 can discontinue Xarelto -For Coumadin will discharge you on 3.5 mg on Tuesdays, , Tuesday, 4 mg the rest of the days -Further dosing based upon INR -Please have Dr. Cherry recheck INR -For your heel ulcer continue wet-to-dry dressings daily -Follow-up with wound care -Monitor for recurrent UTIs, monitor INR closely as you are on doxycycline -Take doxycycline for superficial cellulitis, DTI Discharge Attestations Time Spent in Discharge Care*: less than 30 min Quality Metrics Clinical Quality Measures During this hospital stay, did patient experience: None Coding Level of Care Code Acute [facility] note Diagnoses Decubitus ulcer of left heel, unstageable L89.620
--- NOTE | 2020-12-16 13:30 | PC.NURSE ---
Called patient's and notified him that patient is being discharged today. he said we need to set up transport for patient.
[2020-12-16] MEDS: warfarin 1 mg Tablet 3.5 MG PO (14:13)
[2020-12-16] MEDS: rivaroxaban 10 mg Tablet 20 MG PO (14:15)
--- NOTE | 2020-12-16 14:21 | ANE.PACU2 ---
Inpatient post-anesthesia follow up: Airway intact: Yes Vital signs: Temperature 98.4 F Pulse Rate 64 Respiratory Rate 17 Blood Pressure 97/67 Pulse Oximetry 98 Oxygen Delivery Me thod Room Air Oxygen Flow Rate 4 Fraction of Inspir ed Oxygen Hydration adequate: Yes Nausea and vomiting: No Pain level: 4 Mental status: Baseline
[2020-12-16] MEDS: oxyCODONE 5 mg IR Tab/Cap 10 MG PO (14:44)
--- NOTE | 2020-12-16 16:12 | PC.NURSE ---
patient given discharge instructions. patient loaded in chair by 3 staff members. patient and belongings and patient loaded into ready transport van.
--- NOTE | 2020-12-16 21:57 | PM.OP ---
Operative Report Date of procedure: December 16, 2020 Pre-op Diagnosis: Decubitus ulcer left heel Post-op Diagnosis: stage 3 decubitus ulcer Left heel measuring 3 x 3 x 0.5cm Procedure Done: Excisional debridement of necrotic skin and subcutaneous tissues on left heel using cautery Surgeon: Ruben Gustafson Anesthesia: MAC Condition: stable Disposition: PACU Procedure: The patient was taken to the operating room and placed under MAC and the left foot was prepped and draped in a sterile manner. Patient is on therapeutic antibiotics. Using cautery excisional debridement of necrotic skin and subcutaneous tissue was performed on the left heel until there was punctate bleediing noted resulting in a stage 3 wound measuring 3 x 3 x 0.5 cm. Hemostatsis was ensured with cautery, wound irrigated and packed with Surgicel, gauze and wrapped with Kerlix. The patient was transferred to recovery room in stable condition.
[2020-12-19 05:18] LABS: Heparin Induced Platelet AB NEGATIVE (NEGATIVE); Patient O.D 0.056
[2020-12-19 21:48] LABS: UFH High Dose, 100 IU/ML 3 % release; UFH Low Dose, 0.1 IU/ML 2 % release; UFH Low Dose, 0.5 IU/ML 2 % release; UFH SRA Result NEGATIVE (NEGATIVE)
== END 2020-12-16 16:16 | disposition home health service (06) | DRG 673 ==
PROVIDERS: Internal Medicine; Surgery; Admitting Provider Hospitalist; PCP Family Medicine; Visit Provider Family Medicine
PROC: 0JBR0ZZ Excision of Left Foot Subcutaneous Tissue and Fascia, Open Approach (ICD-10-PCS; principal; 2020-12-16 07:00)
DX: T83.511A Infection and inflammatory reaction due to indwelling urethral catheter, initial encounter (principal); L89.623 Pressure ulcer of left heel, stage 3; G82.50 Quadriplegia, unspecified; Z16.23 Resistance to quinolones and fluoroquinolones; D68.61 Antiphospholipid syndrome; E27.1 Primary adrenocortical insufficiency; E66.2 Morbid (severe) obesity with alveolar hypoventilation; Y73.1 Therapeutic (nonsurgical) and rehabilitative gastroenterology and urology devices associated with adverse incidents; B96.5 Pseudomonas (aeruginosa) (mallei) (pseudomallei) as the cause of diseases classified elsewhere; Z86.711 Personal history of pulmonary embolism; Z86.718 Personal history of other venous thrombosis and embolism; G35 Multiple sclerosis; N31.9 Neuromuscular dysfunction of bladder, unspecified; Z87.440 Personal history of urinary (tract) infections; M32.9 Systemic lupus erythematosus, unspecified; Z99.3 Dependence on wheelchair; Z87.891 Personal history of nicotine dependence; Z68.24 Body mass index [BMI] 24.0-24.9, adult; F32.9 Major depressive disorder, single episode, unspecified; L89.150 Pressure ulcer of sacral region, unstageable; Z79.01 Long term (current) use of anticoagulants; Z79.891 Long term (current) use of opiate analgesic; M79.2 Neuralgia and neuritis, unspecified
CPT/HCPCS: 36415; 36416; 74176; 80053; 80500; 81001; 82962; 83605; 83735; 84100; 84145; 85025; 85610; 86140; 87040; 87077; 87086; 87186; 88304; 94640; 96372; J0743; J1650; J2270; J2405; J2543; J2704; J3010; J3475; J3535; J7030; J7040; J7611

== ENCOUNTER → 2021-05-13 13:02 | Outpatient (BNVA) | payer MEDICARE, OTHER, SELFPAY | PROVIDERS: PCP Family Medicine; Visit Provider Internal Medicine | DX: Z79.01 Long term (current) use of anticoagulants (principal) ==

== ENCOUNTER → 2021-05-18 10:42 | Outpatient (BNVA) | payer MEDICARE, OTHER, SELFPAY | PROVIDERS: PCP Family Medicine; Visit Provider Internal Medicine Cardiovascular Disease | DX: Z79.01 Long term (current) use of anticoagulants (principal) ==

== ENCOUNTER → 2021-06-05 12:41 | Outpatient (BNVA) | payer MEDICARE, OTHER, SELFPAY | PROVIDERS: PCP Family Medicine; Visit Provider Internal Medicine Cardiovascular Disease | DX: Z79.01 Long term (current) use of anticoagulants (principal) ==

== ENCOUNTER → 2021-06-12 14:29 | Outpatient (BNVA) | payer MEDICARE, OTHER, SELFPAY | PROVIDERS: PCP Family Medicine; Visit Provider Internal Medicine Cardiovascular Disease | DX: Z79.01 Long term (current) use of anticoagulants (principal) ==

== ENCOUNTER → 2021-07-03 08:48 | Outpatient (BNVA) | payer MEDICARE, OTHER, SELFPAY | PROVIDERS: PCP Family Medicine; Visit Provider Internal Medicine | DX: Z79.01 Long term (current) use of anticoagulants (principal) ==

== ENCOUNTER → 2021-07-10 14:05 | Outpatient (BNVA) | payer MEDICARE, OTHER, SELFPAY | PROVIDERS: PCP Family Medicine; Visit Provider Internal Medicine | DX: Z79.01 Long term (current) use of anticoagulants (principal) ==

== ENCOUNTER → 2021-07-23 09:52 | Outpatient (BNVA) | payer MEDICARE, OTHER, SELFPAY | PROVIDERS: PCP Family Medicine; Visit Provider Internal Medicine | DX: Z79.01 Long term (current) use of anticoagulants (principal) ==

== ENCOUNTER → 2021-08-05 08:05 | Outpatient (BNVA) | payer MEDICARE, OTHER, SELFPAY | PROVIDERS: PCP Family Medicine; Visit Provider Internal Medicine | DX: Z79.01 Long term (current) use of anticoagulants (principal) ==

== ENCOUNTER → 2021-08-13 08:10 | Outpatient (BNVA) | payer MEDICARE, OTHER, SELFPAY | PROVIDERS: PCP Family Medicine; Visit Provider Internal Medicine Cardiovascular Disease | DX: Z79.01 Long term (current) use of anticoagulants (principal) ==

== ENCOUNTER → 2021-08-28 10:23 | Outpatient (BNVA) | payer MEDICARE, OTHER, SELFPAY | PROVIDERS: PCP Family Medicine; Visit Provider Internal Medicine | DX: Z79.01 Long term (current) use of anticoagulants (principal) ==

== ENCOUNTER 2021-09-17 13:49 | Outpatient (CLI) | payer MEDICARE, OTHER, SELFPAY ==
[2021-09-17 14:26] LABS: Basophils # 0.1 10^3/uL (0.0-0.1); Basophils % 0.8 %; Eosinophils # 0.2 10^3/uL (0.0-0.8); Eosinophils % 2.5 %; Hematocrit 41.4 % (37.0-47.0); Hemoglobin 13.6 g/dL (11.5-15.3); Lymphocytes # 1.8 10^3/uL (0.8-4.8); Lymphocytes % 27.8 %; Mean Corpuscular HGB Conc 32.9 g/dL (30.0-36.0); Mean Corpuscular Hemoglobin 29.4 pg (28.0-34.0); Mean Corpuscular Volume 89.6 fl (81-99); Monocytes # 0.4 10^3/uL (0.2-0.9); Monocytes % 5.8 %; Neutrophils # 4.08 10^3/uL (1.8-7.7); Neutrophils % 62.5 %; Nucleated Red Blood Cells % 0 %; Platelet Count 104 10^3/cmm (130-400); Red Blood Count 4.62 10^6/uL (4.1-5.3); Red Cell Distribution Width 14.7 % (12.1-15.1); White Blood Count 6.5 10^3/uL (4.0-10.0)
== END 2021-09-17 13:50 | disposition home or self-care (01) ==
PROVIDERS: Internal Medicine Cardiovascular Disease; PCP Family Medicine; Visit Provider Internal Medicine Cardiovascular Disease
DX: L89.623 Pressure ulcer of left heel, stage 3 (principal)
CPT/HCPCS: 85025

== ENCOUNTER → 2021-09-18 08:17 | Outpatient (BNVA) | payer MEDICARE, OTHER, SELFPAY | PROVIDERS: PCP Family Medicine; Visit Provider Internal Medicine Cardiovascular Disease | DX: Z79.01 Long term (current) use of anticoagulants (principal) ==

== ENCOUNTER → 2021-09-21 09:08 | Outpatient (BNVA) | payer MEDICARE, OTHER, SELFPAY | PROVIDERS: PCP Family Medicine; Visit Provider Internal Medicine Cardiovascular Disease | DX: Z79.01 Long term (current) use of anticoagulants (principal) ==

== ENCOUNTER → 2021-10-06 14:21 | Outpatient (BNVA) | payer MEDICARE, OTHER, SELFPAY | PROVIDERS: PCP Family Medicine; Visit Provider Specialist | DX: G35 Multiple sclerosis (principal) | CPT/HCPCS: 99215 ==

== ENCOUNTER 2021-10-28 15:41 | Outpatient (CLI) | payer MEDICARE, OTHER, SELFPAY ==
--- NOTE | 2021-10-28 | XRR_ITS ---
PROCEDURE INFORMATION: Exam: XR Pelvis Exam date and time: 10/28/2021 4:17 PM Age: 56 years old Clinical indication: Condition or disease; Other: Ulcer; Additional info: Elevated crp, ulcer TECHNIQUE: Imaging protocol: Radiologic exam of the pelvis. Views: 1 or 2 view. COMPARISON: 1. MR pelvis wo/w con [id number] 05/14/2019 11:[address] kidney stone [id number] 12/15/2020 11:18 AM FINDINGS: Bones/joints: Bones are severely osteopenic. No acute fracture is demonstrated. There is erosion of the right ischial tuberosity which appears unchanged from 01/15/2021 CT scan. Erosion of the left ischial tuberosity appears increased from the previous examinations. Postsurgical changes of the sacrum are obscured by fecal material within the rectum. Soft tissues: Unremarkable. XR/XR pelvis 1-2V* [id number] IMPRESSION: Increasing erosion of the left ischial tuberosity. Please correlate with the physical examination findings.
== END 2021-10-28 15:42 | disposition home or self-care (01) ==
LOC: RAD 16:00
PROVIDERS: PCP Family Medicine; Visit Provider Family Medicine
DX: R79.82 Elevated C-reactive protein (CRP) (principal); L89.93 Pressure ulcer of unspecified site, stage 3
CPT/HCPCS: 72170

== ENCOUNTER → 2022-03-10 14:11 | Outpatient (BNVA) | payer MEDICARE, OTHER, SELFPAY | PROVIDERS: PCP Family Medicine; Visit Provider Internal Medicine Rheumatology | DX: D68.61 Antiphospholipid syndrome (principal); R76.8 Other specified abnormal immunological findings in serum; M87.059 Idiopathic aseptic necrosis of unspecified femur; G35 Multiple sclerosis | CPT/HCPCS: 99214 ==

== ENCOUNTER 2022-07-15 14:14 | Inpatient (IN) | payer MEDICARE, OTHER, SELFPAY ==
[2022-07-15] VITALS (10 sets, daily range): BP systolic 98–106; BP diastolic 58–68; PULSE 84–93; RESP 16–26; TEMP 36.9–37.3; O2SAT 93–95; BMI 20.7
--- NOTE | 2022-07-15 14:20 | ED_ITS ---
HPI - General Adult General: Chief complaint: General Medical Stated complaint: infusin sent from [facility] Time Seen by Provider: 07/15/22 14:19 History of Present Illness: Ms. Viramontes is a 56-year-old lady with complex past medical history including multiple sclerosis with triplegia, recurrent urinary tract infection with suprapubic catheter, history of antiphospholipid syndrome on anticoagulation presenting to the emergency department for generalized illness and concern over multidrug-resistant urinary tract infection. She has had increased sediment and clogging of her urinary catheter as well as requiring more frequent flushes and having some blood in the urine for a few weeks. She also notes chills. She has had suprapubic pain in the bladder region consistent with prior urinary tract infections. Last catheter change was yesterday. She has tried Levaquin at home for 20 days without improvement. This was managed by patient's PCP and additionally caused INR derangement requiring medication adjustment. 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 Overall course of symptoms has worsened. No other specific changes in health, exacerbating, or alleviating factors identified. Onset (ago): week(s) Location: abdomen Quality: aching Relieving factors: none Exacerbating factors: none Treatments prior to arrival: other Review of Systems General: Reports: 10 or more systems reviewed and unremarkable except in HPI and below PFSH ED PFSH: Medical History Calhan disease Antiphospholipid syndrome AVN of femur High risk medication use Hx of deep venous thrombosis Hx of pulmonary embolus Inflammatory arthritis Multiple sclerosis Neuralgia and neuritis, unspecified Positive JARRED (antinuclear antibody) Recurrent UTI Systemic lupus erythematosus, unspecified Surgical History H/O chest tube placement History of bone marrow biopsy Hx of cholecystectomy Family History Denies family history of Rheumatoid arthritis Lupus Social History Smoking and tobacco status: never smoked Quit status (tobacco): has quit using tobacco Year quit tobacco: 2009 Former quit date comment: Hx of 1 PPD x 13 Years Smoking risk assessment/counseling performed?: No Alcohol intake: former Counseling given: No Substance/Drug Use: never Counseling given: No Caregiver/support person: Yes () Lives independently: Yes Household members: spouse Marital status: Current occupational status: disabled Do you think of yourself as: Straight/Heterosexual Current gender identity: Female Physical Exam Const: COMMON NORMALS: alert GENERAL APPEARANCE: cooperative and well developed HENMT: COMMON NORMALS: normocephalic and atraumatic HEAD & SCALP: normocephalic and atraumatic Eye: COMMON NORMALS: conjunctivae normal CONJUNCTIVA: Yes conjunctivae normal SCLERA: sclerae normal Neck/C-Spine: COMMON NORMALS: supple GENERAL: Yes trachea midline Resp: COMMON NORMALS: clear to auscultation bilaterally EFFORT & INSPECTION: Yes able to speak in complete sentences AUSCULTATION: clear to auscultation bilaterally Cardio: COMMON NORMALS: regular rate and regular rhythm RATE: regular rate RHYTHM: regular rhythm GI: COMMON NORMALS: Soft to palpation PALPATION: Yes Soft to palpation and No Tenderness to palpation present (GI) Extremity: GENERAL: Yes normal exam except as noted and No edema Neuro: COMMON NORMALS: negative for moves all extremities SENSORIUM/ORIENTATION: Yes alert and No Orientation impaired OTHER: Baseline Psych: COMMON NORMALS: mental status grossly normal and Normal thought process present THOUGHT PROCESS: Normal thought process present Course Vital Signs: Vital signs: Vital Signs Temperature 98.7 F 07/15/22 19:21 Pulse Rate 84 07/15/22 14:20 Respiratory Rate 18 07/15/22 14:20 Blood Pressure 106/68 07/15/22 17:00 Pulse Oximetry 93 07/15/22 14:20 Oxygen Delivery Me thod Room Air 07/15/22 14:20 MDM - General Adult Medical Decision Making 56-year-old lady with complex past medical history presenting with culture confirmed multidrug-resistant Pseudomonas. She does note associated chills, increased bladder pain, generalized malaise. Per her and primary care physician reports she has also had episodes of hypotension that was not currently hypotensive. She is chronically ill-appearing however not toxic. Labs notable for no leukocytosis, normal hemoglobin and thrombocytopenia again noted. INR appears therapeutic. No significant electrolyte derangement, renal function is preserved. Blood cultures obtained. Based on physical exam and provided clinical history I will defer imaging at this time. Review of culture and urinalysis from 5/10 reveals the following. 2+ occult blood, trace protein, positive nitrate, 3+ leuk esterase, 40-60 WBC, 3-10 RBC, 0-5 squame, moderate bacteria. Culture reveals susceptibility to amikacin, meropenem, tobramycin. Intermediate to cefepime, ceftazidime, gentamicin, imipenem, Zosyn. Resistant to ciprofloxacin and levofloxacin. Meropenem ordered. Patient has concerning elements and clinical history for more significant infection and she certainly requires IV antibiotics. Most likely etiology of symptoms is multidrug-resistant Pseudomonas urinary tract infection in the context of significant comorbidities and suprapubic urinary catheter. The results of ED evaluation were discussed with the patient including plan for admission due to requirement for level of care not available if discharged to [facility] significant worsening/deterioration. Patient agreeable with plan. Discussed with hospitalist service who was agreeable to admit patient. Medical Records I reviewed the patient's medical records. Lab Data I reviewed the patient's lab results. 07/15/22 15:13 07/15/22 15:13 Laboratory Results WBC 5.8 10^3/uL (4.0-10.0) 07/15/22 15:13 RBC 4.12 10^6/uL (4.1-5.3) 07/15/22 15:13 Hgb 12.2 g/dL (11.5-15.3) 07/15/22 15:13 Hct 37.0 % (37.0-47.0) 07/15/22 15:13 MCV 89.8 fl (81-99) 07/15/22 15:13 MCH 29.6 pg (28.0-34.0) 07/15/22 15:13 MCHC 33.0 g/dL (30.0-36.0) 07/15/22 15:13 RDW 14.8 % (12.1-15.1) 07/15/22 15:13 Plt Count 91 10^3/cmm (130-400) L 07/15/22 15:13 MPV 12.8 fL (7.4-10.4) H 07/15/22 15:13 Neut % (Auto) 77.2 % 07/15/22 15:13 Lymph % (Auto) 16.1 % 07/15/22 15:13 [place] % (Auto) 5.0 % 07/15/22 15:13 Eos % (Auto) 1.0 % 07/15/22 15:13 Baso % (Auto) 0.5 % 07/15/22 15:13 Neut # (Auto) 4.50 10^3/uL (1.8-7.7) 07/15/22 15:13 Lymph # (Auto) 0.9 10^3/uL (0.8-4.8) 07/15/22 15:13 [place] # (Auto) 0.3 10^3/uL (0.2-0.9) 07/15/22 15:13 Eos # (Auto) 0.1 10^3/uL (0.0-0.8) 07/15/22 15:13 Baso # (Auto) 0.0 10^3/uL (0.0-0.1) 07/15/22 15:13 Nucleated RBC % (auto) 0 % 07/15/22 15:13 Nucleated RBCs # 0.0 /100WBC 07/15/22 15:13 PT 28.90 SECONDS (12.1-14.9) H 07/15/22 15:13 INR 2.61 (0.8-1.2) H 07/15/22 15:13 APTT 51.1 SECONDS (23.9-36.7) H 07/15/22 15:13 Sodium 137 mmol/L (136-145) 07/15/22 15:13 Potassium 4.0 mmol/L (3.5-5.1) 07/15/22 15:13 Chloride 101 mmol/L (98-107) 07/15/22 15:13 Carbon Dioxide 27 mmol/L (22-29) 07/15/22 15:13 Anion Gap 13.0 (5-19) 07/15/22 15:13 BUN 7 mg/dL (6-20) 07/15/22 15:13 Creatinine 0.5 mg/dL (0.5-0.9) 07/15/22 15:13 GFR Calculation 128.1 mL/min (90-130) 07/15/22 15:13 Glucose 93 mg/dL (65-115) 07/15/22 15:13 Calculated Osmolality 282 mOsm/kg (285-295) L 07/15/22 15:13 Lactic Acid 0.6 mmol/L (0.5-2.2) 07/15/22 15:13 Calcium 8.5 mg/dL (8.5-10.5) 07/15/22 15:13 Total Bilirubin 0.2 mg/dL (0.15-1.2) 07/15/22 15:13 AST 15 U/L (0-32) 07/15/22 15:13 ALT < 5 U/L (0-33) 07/15/22 15:13 Alkaline Phosphatase 87 U/L (35-105) 07/15/22 15:13 Total Protein 6.3 g/dL (6.6-8.7) L 07/15/22 15:13 Albumin 3.4 g/dL (3.5-5.2) L 07/15/22 15:13 Globulin 2.9 g/dL (1.3-4.6) 07/15/22 15:13 Procalcitonin 0.03 ng/mL (0-0.5) 07/15/22 15:13 Discharge Plan Discharge Patient Disposition: Admitted As Inpatient Admit Provider: Aletha Veronica Clinical Impression: Complicated urinary tract infection, Multiple drug resistant organism (MDRO) culture positive Condition: Stable Coding Level of Care Code ED [employer]eles[employer] Team Leader for Betty Mccarthy
[2022-07-15] MEDS: meropenem 1,000 MG in sodium chloride 0.9% (plus) 50 ML 100 MG IV (15:21)
[2022-07-15 15:37] LABS: Basophils % 0.5 %; Eosinophils # 0.1 10^3/uL (0.0-0.8); Hemoglobin 12.2 g/dL (11.5-15.3); Lymphocytes # 0.9 10^3/uL (0.8-4.8); Lymphocytes % 16.1 %; Mean Corpuscular Hemoglobin 29.6 pg (28.0-34.0); Mean Corpuscular Volume 89.8 fl (81-99); Mean Platelet Volume 12.8 fL (7.4-10.4); Monocytes # 0.3 10^3/uL (0.2-0.9); Neutrophils % 77.2 %; Nucleated Red Blood Cells % 0 %; Platelet Count 91 10^3/cmm (130-400); Red Blood Count 4.12 10^6/uL (4.1-5.3); Red Cell Distribution Width 14.8 % (12.1-15.1); White Blood Count 5.8 10^3/uL (4.0-10.0)
[2022-07-15 15:45] LABS: INR 2.61 (0.8-1.2)
[2022-07-15 15:46] LABS: Partial Thromboplastin Time 51.1 SECONDS (23.9-36.7)
[2022-07-15 15:49] LABS: Alanine Aminotransferase < 5 U/L (0-33); Albumin Level 3.4 g/dL (3.5-5.2); Alkaline Phosphatase 87 U/L (35-105); Aspartate Amino Transferase 15 U/L (0-32); Blood Urea Nitrogen 7 mg/dL (6-20); Calcium 8.5 mg/dL (8.5-10.5); Carbon Dioxide 27 mmol/L (22-29); Chloride 101 mmol/L (98-107); Globulin 2.9 g/dL (1.3-4.6); Glomerular Filtration Rate 128.1 mL/min (90-130); Glucose 93 mg/dL (65-115); Lactic Sepsis W/Reflex 0.6 mmol/L (0.5-2.2); Osmolality Calculated 282 mOsm/kg (285-295); Sodium 137 mmol/L (136-145); Total Bilirubin 0.2 mg/dL (0.15-1.2); Total Protein 6.3 g/dL (6.6-8.7)
--- NOTE | 2022-07-15 17:05 | PC.NURSE ---
Upon evaluation of the patient, Dr. Fontenot decided the patient needed to be admitted. Dr. Fontenot educated patient on need for admission and patient verbalized understanding. Upon entering the room after Dr. Fontenot educated on need for admission, patient verbalized to this nurse that admission was not the plan. I want to leave. Patient and family started to engage in a verbal argument and requested to speak to Dr. Fontenot again. After Dr. Fontenot spoke with the patient and family again, patient requested to go outside for 20 minutes to have a cigarette and then would consider being admitted. This request was approved by the charge nurse, Nancy Feliciano and Dr. Fontenot. Patient was allowed to go outside for 20 minutes and then was returned to assigned room.
--- NOTE | 2022-07-15 17:15 | PC.NURSE ---
ASSUMED CARE AT 1715
--- NOTE | 2022-07-15 17:49 | P.HP_ITS ---
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 Patient has been taking levofloxacin for last 10 days without significant improvement, patient has not noticed diarrhea, fever, chest pain She will need a PICC line and ertapenem 1 g for 14 days for ESBL Pseudomonas, re ports are in his chart however not scanned into our EMR yet Review of Systems Const: Denies: fever(s) Eyes: Denies: change in vision ENMT: Denies: throat pain Card: Denies: chest pain Resp: Denies: dyspnea GI: Denies: abdominal pain : Denies: flank pain Musc: Reports: back pain, extremity swelling and joint pain Skin/Breast: Reports: rash Neuro: Reports: numbness in extremities Psych: Reports: anxiety Endo: Denies: polyuria Medications/Allergies Home Medications Medication Instructions Recorded Confirmed Last Taken Type albuterol sulfate 2.5 mg/3 mL 2.5 mg inhalation Q4H PRN 03/21/19 03/10/22 Unknown History (0.083 %) solution for nebulization Shortness Of Breath magnesium oxide 400 mg PO DAILY@03/21/19 03/10/22 09/02/20 History montelukast 10 mg tablet 10 mg PO DAILY@03/21/19 03/10/22 12/10/20 18:00 History (Braulioulair) pseudoephedrine HCl 60 mg tablet 30 mg PO Q12H 03/21/19 03/10/22 09/03/20 History sertraline 100 mg tablet 150 mg PO DAILY@03/21/19 03/10/22 09/02/20 History tizanidine 4 mg capsule 4 mg PO Q12H PRN Muscle Spasm 03/21/19 03/10/22 Unknown History zinc gluconate 100 mg tablet 100 mg PO DAILY@03/21/19 03/10/22 09/02/20 History levothyroxine 125 mcg tablet 62.5 mcg PO DAILY 07/02/19 03/10/22 09/02/20 History (Synthroid) fluticasone propionate 100 1 inh inhalation BID PRN Shortness 07/24/19 03/10/22 Unknown History mcg/actuation blister powder for Of Breath inhalation (Flovent Diskus) Wheel Chair Repairs #1 ea 11/06/19 03/10/22 Unknown Rx ipratropium bromide 17 1 puff inhalation BID PRN 06/11/20 03/10/22 Unknown History mcg/actuation HFA aerosol inhaler Shortness Of Breath (Atrovent HFA) cholecalciferol (vitamin D3) 10 10 mcg PO DAILY@18 12/10/20 03/10/22 Unknown History mcg (400 unit) capsule (Vitamin D3) gentamicin 0.1 % topical ointment 1 applic topical DAILY 12/10/20 03/10/22 Unknown History ascorbic acid (vitamin C) 500 mg 500 mg PO DAILY 12/11/20 03/10/22 Unknown History tablet (Vitamin C) fludrocortisone 0.1 mg tablet 0.05 - 0.1 mg PO PRN see pharmacy 12/11/20 03/10/22 Unknown History comments potassium gluconate 595 mg (99 mg) 99 mg PO DAILY 12/11/20 03/10/22 Unknown History tablet vitamin B complex 1 tab PO DAILY 12/11/20 03/10/22 Unknown History warfarin 1 mg tablet See Rx Instructions .Route 12/16/20 03/10/22 Unknown Rx .COMPLEX #0 tabs phytonadione (vitamin K1) 5 mg 2.5 mg PO ONCE #1 tab 09/17/21 03/10/22 Unknown Rx tablet methenamine hippurate 1 gram tablet 1 g PO BID #60 tabs 09/24/21 03/10/22 Unknown Rx fluconazole 150 mg tablet See Rx Instructions .Route 11/23/21 03/10/22 Unknown Rx .COMPLEX #7 tabs baclofen 10 mg tablet See Rx Instructions .Route 12/29/21 03/10/22 Unknown Rx .COMPLEX #240 tabs sumatriptan succinate 50 mg tablet 50 mg PO BID PRN Migraine Headache 12/29/21 03/10/22 Unknown Rx (Imitrex) #9 tabs prednisone 10 mg tablet 10 mg PO PRN joint pain flares #60 03/10/22 03/10/22 Unknown Rx tabs cyclobenzaprine 10 mg tablet See Rx Instructions .Route 04/12/22 Unknown Rx .COMPLEX #60 tabs citric ac 1980.6 mg-glucono 59.4 30 ml irrigation TID #900 mL 06/08/22 Unknown Rx mg-mag carb 980.4 mg/30 mL irrig.soln (Renacidin) clonazepam 0.5 mg tablet 0.5 mg PO TID PRN anxiety #270 tabs 06/30/22 Unknown Rx levofloxacin 750 mg tablet 750 mg PO DAILY #10 tabs 06/30/22 Unknown Rx methylphenidate HCl 20 mg tablet 20 mg PO TID PRN sleepiness 30 06/30/22 Unknown Rx days #90 tabs methylphenidate HCl 20 mg tablet 20 mg PO TID 30 days #90 tabs 06/30/22 Unknown Rx (Ritalin) methylphenidate HCl 20 mg tablet 20 mg PO TID 30 days #90 tabs 06/30/22 Unknown Rx (Ritalin) morphine 15 mg tablet,extended 15 mg PO Q8H 1 month #90 tabs 06/30/22 Unknown Rx release morphine 15 mg tablet,extended 15 mg PO Q8H 1 month #90 tabs 06/30/22 Unknown Rx release morphine 15 mg tablet,extended 15 mg PO Q8H 30 days #90 tabs 06/30/22 Unknown Rx release oxycodone 10 mg tablet 10 mg PO QID PRN pain 30 days #120 06/30/22 Unknown Rx tabs oxycodone 10 mg tablet 10 mg PO QID PRN pain 30 days #120 06/30/22 Unknown Rx tabs oxycodone 10 mg tablet 10 mg PO QID PRN pain 30 days #120 06/30/22 Unknown Rx tabs pregabalin 100 mg capsule (Lyrica) 100 mg PO TID #90 caps 06/30/22 Unknown Rx Allergies Allergy/AdvReac Type Severity Reaction Status Date / Time erythromycin base Allergy Unknown Verified 07/15/22 14:24 interferon beta-1b Allergy Unknown Verified 07/15/22 14:24 [From Betaseron] lorazepam [From Ativan] Allergy Unknown Verified 07/15/22 14:24 PFSH Acute PFSH: Medical History Guilford disease Antiphospholipid syndrome AVN of femur High risk medication use Hx of deep venous thrombosis Hx of pulmonary embolus Inflammatory arthritis Multiple sclerosis Neuralgia and neuritis, unspecified Positive JARRED (antinuclear antibody) Recurrent UTI Systemic lupus erythematosus, unspecified Surgical History H/O chest tube placement History of bone marrow biopsy Hx of cholecystectomy Family History Denies family history of Rheumatoid arthritis Lupus Social History Smoking and tobacco status: never smoked Quit status (tobacco): has quit using tobacco Year quit tobacco: 2009 Former quit date comment: Hx of 1 PPD x 13 Years Smoking risk assessment/counseling performed?: No Alcohol intake: former Counseling given: No Substance/Drug Use: never Counseling given: No Caregiver/support person: Yes () Lives independently: Yes Household members: spouse Marital status: Current occupational status: disabled Do you think of yourself as: Straight/Heterosexual Current gender identity: Female Vitals/I&O/Wt Last Vital Signs Temp 98.4 F 07/15/22 14:20 Pulse 84 07/15/22 14:20 Resp 18 07/15/22 14:20 BP 106/68 07/15/22 17:00 Pulse Ox 93 07/15/22 14:20 O2 Del Method Room Air 07/15/22 14:20 07/15/22 07/15/22 07/15/22 06:59 14:59 22:59 Intake Total 50 / 50 Balance 50 / 50 Weight last 48 hrs Weight 56.699 kg Physical Exam Narrative: Patient is in her motorized wheelchair Suprapubic catheter in place Lower extremity swelling Pressure ulcer fifth toe Edematous extremities She is able to move her left arm Awake and alert She is showing She is current in multiple layers No new focal deficit Abdomen nontender No acute respiratory distress Doing well on room air No audible stridor or wheezing Data 07/15/22 15:13 07/15/22 15:13 Micro: Microbiology 07/15/22 15:23 Blood Culture - Preliminary Blood SPECIMEN COLLECTED 07/15/22 15:13 Blood Culture - Preliminary Blood SPECIMEN COLLECTED A&P Assessment and plan (1) Complicated urinary tract infection: (2) Multiple drug resistant organism (MDRO) culture positive: (3) Decubitus ulcer of left heel, unstageable: (4) Deep tissue injury: (5) Pulmonary embolus: (6) Multiple sclerosis: (7) Neuromuscular weakness: (8) Recurrent UTI: (9) AVN of femur: Plan ESBL Pseudomonas Outpatient cultures reviewed I will start her on meropenem here and then request PICC line for tomorrow She will need 1 g ertapenem for 14 days Suprapubic catheter in place Which was replaced recently Neuromuscular weakness Notable sclerosis Triplegia She is able to move her left arm Complaining of spasticity We will continue her muscle relaxants and opioid History of antiphospholipid, PE continue Coumadin Goals of care discussed with the patient she is DNI/DNI At home lives with her She eats regular diet Addisonian disease: Patient is stating that her blood pressure was low she started taking hydrocortisone 5 mg whenever her blood pressure is low and then she stops on her own She also takes fludrocortisone daily basis however steroids are not taken on d aily basis Attestations Medical Necessity Statement*: Anticipating discharge within 48 hours she will need PICC line placement, IV antibiotic Diagnoses Complicated urinary tract infection N39.0 Multiple drug resistant organism (MDRO) culture positive Z16.24 Decubitus ulcer of left heel, unstageable L89.620 Deep tissue injury T14.8XXA Pulmonary embolus I26.99 Multiple sclerosis G35 Neuromuscular weakness G70.9 Recurrent UTI N39.0 AVN of femur M87.059
--- NOTE | 2022-07-15 18:16 | PC.NURSE ---
Patient came from ED at 1800.
[2022-07-15 19:03] LABS: Procalcitonin 0.03 ng/mL (0-0.5)
--- NOTE | 2022-07-15 19:37 | PC.PHAR ---
PHARMACY TO DOSE - ZOSYN With the patient's current CrCl >20, the patient is indicated for 3.375g every 8 hours with the extended-infusion therapy. Pharmacy will continue to monitor the patient's renal function and make adjustments as necessary. Please let us know if there is anything else that we can do for you. Thanks, Joshua Sidhu, Pharm.D
[2022-07-15] MEDS: oxyCODONE 5 mg IR Tab/Cap 10 MG PO (21:10)
[2022-07-15] MEDS: methylphenidate 10 mg Tablet PO (21:12)
[2022-07-15] MEDS: sodium chloride 0.9% 1,000 ML 75 ML IV (21:27)
[2022-07-15] MEDS: piperacillin-tazobactam 3.375 GM in sodium chloride 0.9% (plus) 50 ML IV (21:34)
[2022-07-15] MEDS: warfarin 3 mg Tablet 6 MG PO (22:30)
[2022-07-15] MEDS: baclofen 10 mg Tablet 30 MG PO (22:31)
[2022-07-16] VITALS (12 sets, daily range): BP systolic 92–96; BP diastolic 56–64; PULSE 69–84; RESP 12–21; TEMP 37; O2SAT 93–96
[2022-07-16] MEDS: piperacillin-tazobactam 3.375 GM in sodium chloride 0.9% (plus) 50 ML IV (04:26)
[2022-07-16] MEDS: baclofen 10 mg Tablet 20 MG PO ×2 (06:15→12:10)
[2022-07-16] MEDS: levothyroxine 125 mcg Tablet 62.5 MCG PO (08:09)
[2022-07-16] MEDS: ascorbic acid 500 mg Tablet PO (08:10)
[2022-07-16] MEDS: methylphenidate 10 mg Tablet PO ×2 (08:10→18:24)
[2022-07-16] MEDS: oxyCODONE 5 mg IR Tab/Cap 10 MG PO ×2 (08:10→18:23)
[2022-07-16 08:36] LABS: Basophils % 0.7 %; Eosinophils # 0.2 10^3/uL (0.0-0.8); Eosinophils % 3.3 %; Hematocrit 35.4 % (37.0-47.0); Hemoglobin 11.4 g/dL (11.5-15.3); Lymphocytes # 2.4 10^3/uL (0.8-4.8); Lymphocytes % 40.2 %; Mean Corpuscular HGB Conc 32.2 g/dL (30.0-36.0); Mean Corpuscular Hemoglobin 28.8 pg (28.0-34.0); Mean Corpuscular Volume 89.4 fl (81-99); Mean Platelet Volume 12.9 fL (7.4-10.4); Monocytes # 0.5 10^3/uL (0.2-0.9); Monocytes % 7.4 %; Neutrophils # 2.92 10^3/uL (1.8-7.7); Neutrophils % 48.2 %; Nucleated Red Blood Cells % 0 %; Platelet Count 88 10^3/cmm (130-400); Red Blood Count 3.96 10^6/uL (4.1-5.3); Red Cell Distribution Width 14.9 % (12.1-15.1); White Blood Count 6.1 10^3/uL (4.0-10.0)
--- NOTE | 2022-07-16 09:42 | XR_ITS ---
WS: [id number] Portable AP upright chest, 07/16/2022 Clinical Data: Post PICC insertion Comparison: Portable chest, 09/05/2020 Findings: The left PICC line enters the subclavian vein and ends in the superior vena cava. No pneumo thorax is seen. XR/XR chest 1V portable [id number] Impression: Satisfactory placement of left PICC line.
[2022-07-16 10:02] LABS: Anion Gap 10.8 (5-19); Blood Urea Nitrogen 6 mg/dL (6-20); C Reactive Protein 29.8 mg/L (0.0-4.9); Carbon Dioxide 27 mmol/L (22-29); Chloride 105 mmol/L (98-107); Glomerular Filtration Rate 128.1 mL/min (90-130); Glucose 90 mg/dL (65-115); Magnesium 1.9 mg/dL (1.7-2.3); Osmolality Calculated 285 mOsm/kg (285-295); Potassium 3.8 mmol/L (3.5-5.1); Sodium 139 mmol/L (136-145)
--- NOTE | 2022-07-16 11:30 | PC.NURSE ---
Single lumen PICC placed to left basilic vein without difficulty. Mid-arm circumference measured from left AC 29 cm. Trimmed catheter length 37 cm with 0 cm external length noted. CXR confirms cath tip in SVC, in good position for use per radiologist. Dressing due to be changed 07/17/22. Report given to bedside nurse.
[2022-07-16] MEDS: magnesium oxide 400 mg tablet PO (12:08)
[2022-07-16] MEDS: lactated ringers 500 ML 999 ML IV (12:10)
--- NOTE | 2022-07-16 12:23 | P.PN_ITS ---
Subjective Subjective: PICC line placement today Patient was to go to [facility] Vitals/I&O/Wt Last Vital Signs Temp 99.1 F 07/15/22 23:52 Pulse 69 07/16/22 08:50 Resp 12 07/16/22 08:50 BP 92/58 07/16/22 08:50 Pulse Ox 93 07/16/22 08:50 O2 Del Method Room Air 07/16/22 08:00 07/15/22 07/16/22 07/16/22 22:59 06:59 14:59 Intake Total 50 / 50 50 / 100 50 / 50 Output Total 450 / 450 250 / 700 250 / 250 Balance -400 / -400 -200 / -600 -200 / -200 Weight last 48 hrs Weight 56.699 kg Weight 56.699 kg Physical Exam Narrative: Awake and alert PICC line in her arm is at the bedside Lower extremity swelling Abdomen soft Suprapubic catheter Patient covered in multiple layers Currently on room air Blood pressure 101/60 mmHg Data 07/16/22 07:15 07/16/22 09:12 Micro: Microbiology 07/15/22 15:23 Blood Culture - Preliminary Blood SPECIMEN COLLECTED 07/15/22 15:13 Blood Culture - Preliminary Blood SPECIMEN COLLECTED A&P Assessment and plan (1) Complicated urinary tract infection: (2) Multiple drug resistant organism (MDRO) culture positive: (3) Decubitus ulcer of left heel, unstageable: (4) Deep tissue injury: (5) Pulmonary embolus: (6) Multiple sclerosis: (7) Neuromuscular weakness: (8) Pulmonary embolism: (9) Multiple sclerosis: (10) Antiphospholipid syndrome: Plan ESBL UTI No signs of bacteremia Afebrile Check INR Continue Coumadin after PICC line placement Patient will go to [facility] most likely on Tuesday We will give her ertapenem meanwhile She will need a ertapenem 1 g for 14 days I will give her a bolus and stress dose steroid for blood pressure 92/58 mmHg however repeat blood pressure without bolus and steroids is 101/60 mmHg She does not have typical addisonian crisis features for now MS: Continue anxiolytics and baclofen Suprapubic catheter in place Bowel regimen DNR/DNI is at the bedside Nature and family update Attestations Medical Necessity Statement*: Continue medical manage Diagnoses Complicated urinary tract infection N39.0 Multiple drug resistant organism (MDRO) culture positive Z16.24 Decubitus ulcer of left heel, unstageable L89.620 Deep tissue injury T14.8XXA Pulmonary embolus I26.99 Multiple sclerosis G35 Neuromuscular weakness G70.9 Antiphospholipid syndrome D68.61
[2022-07-16] MEDS: fludrocortisone 0.1 mg Tablet PO (12:25)
[2022-07-16] MEDS: ertapenem 1,000 MG in sodium chloride 0.9% (plus) 100 ML 200 MG IV (12:25)
--- NOTE | 2022-07-16 18:31 | PC.NURSE ---
Patient voiced concerns about home medications. Nurse notified physician that patient takes MScontin TID at 0600, 1400, 2200. Also sertraline 150MG daily. Physician orders to resume home med and dose.
[2022-07-16] MEDS: lactobacillus 1 Tablet 1 TAB PO (19:01)
[2022-07-16] MEDS: sertraline 100 mg Tablet 150 MG PO (19:01)
[2022-07-16] MEDS: baclofen 10 mg Tablet 30 MG PO (21:31)
[2022-07-16] MEDS: morphine ER (12 HR) 15 mg Tablet PO (21:32)
[2022-07-16] MEDS: ipratropium-albuterol 3 mL Neb INHALATION (21:49)
[2022-07-17] VITALS (14 sets, daily range): BP systolic 88–104; BP diastolic 52–63; PULSE 65–90; RESP 18–32; TEMP 36.5–37.1; O2SAT 95–97
[2022-07-17] MEDS: oxyCODONE 5 mg IR Tab/Cap 10 MG PO ×2 (01:19→08:49)
--- NOTE | 2022-07-17 05:20 | PM.PN ---
Subjective Subjective: Patient has been afebrile CBC is pending this morning Cultures negative patient has been getting ertapenem on daily basis Awaiting placement to residential on Tuesday She is dependent on opioids Long-acting opioids resumed yesterday Comfort pressure has been softer without any active symptoms She did receive a bolus and stress dose steroids yesterday Vitals/I&O/Wt Last Vital Signs Temp 97.7 F 07/17/22 04:00 Pulse 73 07/17/22 04:00 Resp 19 H 07/17/22 04:00 BP 94/55 07/17/22 04:00 Pulse Ox 95 07/17/22 04:00 O2 Del Method Room Air 07/17/22 04:00 07/16/22 07/16/22 07/17/22 14:59 22:59 06:59 Intake Total 170 / 170 1600 / 1770 Output Total 250 / 250 1000 / 1250 Balance -80 / -80 600 / 520 Weight last 48 hrs Weight 56.699 kg Weight 56.699 kg Physical Exam Narrative: Frail female Multiple sclerosis Triplegia Able to move left hand Currently multiple layers Pressure ulcers on her feet Lower extremity swelling 2+ No new focal deficit S1, S2 Currently on room air Complaining of cramps and stiffness Data 07/16/22 07:15 07/16/22 09:12 Micro: Microbiology 07/15/22 15:23 Blood Culture - Preliminary Blood NEGATIVE TO DATE 07/15/22 15:13 Blood Culture - Preliminary Blood NEGATIVE TO DATE A&P Assessment and plan (1) Complicated urinary tract infection: (2) Multiple drug resistant organism (MDRO) culture positive: (3) Pulmonary embolus: (4) Multiple sclerosis: (5) Neuromuscular weakness: (6) ESBL (extended spectrum beta-lactamase) producing bacteria infection: Plan ESBL Pseudomonas UTI No signs of bacteremia, afebrile Continue ertapenem Patient will need 14 days of ertapenem at the residential Most likely she will be able to go to residential on Tuesday Multiple sclerosis neuromuscular weakness Uses baclofen, anxiolytics muscle relaxant and long-acting opioids Judicious use of opioids because of low blood pressure Does not have typical addisonian crisis features I will keep her on stress dose steroids for now, patient does use hydrocortisone time to time Continue fludrocortisone Suprapubic catheter in place which has been changed recently Patient does have home health services Awaiting placement to residential Cultures negative to date DNR/DNI Attestations Medical Necessity Statement*: Continue medical management Diagnoses Complicated urinary tract infection N39.0 Multiple drug resistant organism (MDRO) culture positive Z16.24 Pulmonary embolus I26.99 Multiple sclerosis G35 Neuromuscular weakness G70.9 ESBL (extended spectrum beta-lactamase) producing bacteria infection A49.9; Z16.12
[2022-07-17] MEDS: baclofen 10 mg Tablet 20 MG PO ×2 (05:50→11:51)
[2022-07-17] MEDS: morphine ER (12 HR) 15 mg Tablet PO ×3 (06:08→21:25)
[2022-07-17] MEDS: hydrocortisone 100 mg/2 mL SDV IVP (08:47)
[2022-07-17] MEDS: magnesium oxide 400 mg tablet PO (08:48)
[2022-07-17] MEDS: levothyroxine 125 mcg Tablet 62.5 MCG PO (08:48)
[2022-07-17] MEDS: methylphenidate 10 mg Tablet PO ×2 (08:48→18:12)
[2022-07-17] MEDS: ascorbic acid 500 mg Tablet PO (08:49)
[2022-07-17] MEDS: sertraline 100 mg Tablet 150 MG PO (08:49)
[2022-07-17] MEDS: fludrocortisone 0.1 mg Tablet PO (08:50)
[2022-07-17 09:01] LABS: INR 3.06 (0.8-1.2)
[2022-07-17] MEDS: ipratropium-albuterol 3 mL Neb INHALATION (09:44)
[2022-07-17] MEDS: lactobacillus 1 Tablet 1 TAB PO ×2 (10:14→18:12)
[2022-07-17] MEDS: ertapenem 1,000 MG in sodium chloride 0.9% (plus) 100 ML 200 MG IV (12:25)
[2022-07-17] MEDS: baclofen 10 mg Tablet PO (14:28)
[2022-07-17] MEDS: warfarin 3 mg Tablet 6 MG PO (14:29)
--- NOTE | 2022-07-17 17:23 | PC.NURSE ---
pt and spouse have voiced concerns regarding pt's home medication regime...several times today..and changes made accordingly.this morning pt requested lyrica (had not been ordered).rn received order for lyrica from ...medication brought to room..and pt's had already given pt her home prescription of lyrica.rn asked to please not give home meds unless approved by md and then labeled by pharmacy.spouse verb understanding.
[2022-07-17] MEDS: pregabalin 100 mg Capsule PO (18:12)
[2022-07-17] MEDS: baclofen 10 mg Tablet 30 MG PO (21:24)
[2022-07-18] VITALS (11 sets, daily range): BP systolic 91–100; BP diastolic 56–59; PULSE 68–76; RESP 9–38; TEMP 36.6–37.2; O2SAT 95–96
--- NOTE | 2022-07-18 04:53 | PM.PN ---
Subjective Subjective: Family meeting conducted, we did go over all the medications Patient is getting ertapenem every day Afebrile I also discussed with the the he should take a look at all the medications and let us know if any tweaks in optimization of medication is needed They had concerns about her Lyrica which was added yesterday Opioids have been adjusted Vitals/I&O/Wt Last Vital Signs Temp 98.6 F 07/17/22 23:39 Pulse 67 07/17/22 23:39 Resp 18 07/17/22 23:39 BP 102/61 07/17/22 23:39 Pulse Ox 95 07/17/22 23:39 O2 Del Method Room Air 07/17/22 23:39 07/17/22 07/17/22 07/18/22 14:59 22:59 06:59 Intake Total 820 / 820 Balance 820 / 820 Physical Exam Narrative: Patient lying supine Able to use her left hand Complaining of soreness and muscle cramps and stiffness Lower extremity swelling Currently on room air Blood pressure stable Hemodynamically stable No new focal deficit Abdomen soft Suprapubic catheter in place Data 07/16/22 07:15 07/16/22 09:12 A&P Assessment and plan (1) ESBL (extended spectrum beta-lactamase) producing bacteria infection: (2) Complicated urinary tract infection: (3) Multiple drug resistant organism (MDRO) culture positive: (4) Decubitus ulcer of left heel, unstageable: (5) Pulmonary embolus: (6) Multiple sclerosis: (7) Neuromuscular weakness: (8) Recurrent UTI: (9) Hx of pulmonary embolus: (10) Hx of deep venous thrombosis: (11) Wheelchair bound: (12) Multiple sclerosis: (13) Antiphospholipid syndrome: Plan ESBL UTI no sign of bacteremia Plan is to discharge her on Tuesday to group home with ertapenem 1 g daily for 14 days Her opiates have been adjusted She is dependent on opiates, anxiolytics, antidepressants, we also adjusted her Lyrica dose She is DNR/DNI I am giving her ertapenem on daily basis For her DVT, antiphospholipid syndrome and PE history Coumadin dose will be adjusted according to the INR INR target is 2-3 Tolerating her diet I have consulted pharmacy to adjust her Coumadin dose I will discontinue stress dose steroids at this point Attestations Medical Necessity Statement*: Continue medical management Diagnoses ESBL (extended spectrum beta-lactamase) producing bacteria infection A49.9; Z16.12 Complicated urinary tract infection N39.0 Multiple drug resistant organism (MDRO) culture positive Z16.24 Decubitus ulcer of left heel, unstageable L89.620 Pulmonary embolus I26.99 Multiple sclerosis G35 Neuromuscular weakness G70.9 Recurrent UTI N39.0 Hx of pulmonary embolus Z86.711 Hx of deep venous thrombosis Z86.718 Wheelchair bound Z99.3 Antiphospholipid syndrome D68.61
[2022-07-18 05:04] LABS: Basophils % 0.4 %; Eosinophils # 0.1 10^3/uL (0.0-0.8); Eosinophils % 1.3 %; Hematocrit 33.7 % (37.0-47.0); Hemoglobin 10.7 g/dL (11.5-15.3); Lymphocytes # 2.5 10^3/uL (0.8-4.8); Lymphocytes % 33.5 %; Mean Corpuscular HGB Conc 31.8 g/dL (30.0-36.0); Mean Corpuscular Hemoglobin 29.2 pg (28.0-34.0); Mean Corpuscular Volume 92.1 fl (81-99); Mean Platelet Volume 12.6 fL (7.4-10.4); Monocytes # 0.5 10^3/uL (0.2-0.9); Neutrophils # 4.33 10^3/uL (1.8-7.7); Neutrophils % 57.4 %; Nucleated Red Blood Cells % 0 %; Platelet Count 118 10^3/cmm (130-400); Red Blood Count 3.66 10^6/uL (4.1-5.3); Red Cell Distribution Width 15.1 % (12.1-15.1); White Blood Count 7.6 10^3/uL (4.0-10.0)
[2022-07-18] MEDS: morphine ER (12 HR) 15 mg Tablet PO ×3 (05:54→22:09)
[2022-07-18] MEDS: baclofen 10 mg Tablet 20 MG PO ×2 (05:54→14:31)
[2022-07-18] MEDS: pregabalin 100 mg Capsule PO ×2 (05:55→18:05)
[2022-07-18 06:05] LABS: INR 3.69 (0.8-1.2)
[2022-07-18] MEDS: meropenem 1,000 MG in sodium chloride 0.9% (plus) 50 ML 100 MG IV ×3 (06:11→22:15)
[2022-07-18] MEDS: sertraline 100 mg Tablet 150 MG PO ×2 (08:41→22:09)
[2022-07-18] MEDS: methylphenidate 10 mg Tablet PO ×2 (08:41→18:05)
[2022-07-18] MEDS: magnesium oxide 400 mg tablet PO (08:41)
[2022-07-18] MEDS: ascorbic acid 500 mg Tablet PO (08:42)
[2022-07-18] MEDS: levothyroxine 125 mcg Tablet 62.5 MCG PO (08:42)
[2022-07-18] MEDS: lactobacillus 1 Tablet 1 TAB PO ×2 (09:37→18:05)
[2022-07-18] MEDS: fludrocortisone 0.1 mg Tablet PO (09:38)
[2022-07-18] MEDS: oxyCODONE 5 mg IR Tab/Cap 10 MG PO (12:56)
[2022-07-18] MEDS: baclofen 10 mg Tablet 30 MG PO (22:08)
[2022-07-19] VITALS (8 sets, daily range): BP systolic 90–111; BP diastolic 56–61; PULSE 65–81; RESP 4–23; TEMP 36.9–37.3; O2SAT 94–96
[2022-07-19 04:42] LABS: Basophils % 0.6 %; Eosinophils # 0.2 10^3/uL (0.0-0.8); Eosinophils % 3.4 %; Hematocrit 34.7 % (37.0-47.0); Hemoglobin 10.7 g/dL (11.5-15.3); Lymphocytes % 48.4 %; Mean Corpuscular HGB Conc 30.8 g/dL (30.0-36.0); Mean Corpuscular Hemoglobin 28.8 pg (28.0-34.0); Mean Corpuscular Volume 93.5 fl (81-99); Mean Platelet Volume 12.8 fL (7.4-10.4); Monocytes # 0.4 10^3/uL (0.2-0.9); Monocytes % 6.3 %; Neutrophils # 2.53 10^3/uL (1.8-7.7); Nucleated Red Blood Cells % 0 %; Platelet Count 97 10^3/cmm (130-400); Red Blood Count 3.71 10^6/uL (4.1-5.3); Red Cell Distribution Width 15.2 % (12.1-15.1); White Blood Count 6.2 10^3/uL (4.0-10.0)
[2022-07-19 04:47] LABS: INR 2.79 (0.8-1.2)
[2022-07-19 04:56] LABS: Anion Gap 10.1 (5-19); Blood Urea Nitrogen 8 mg/dL (6-20); Calcium 8.4 mg/dL (8.5-10.5); Carbon Dioxide 30 mmol/L (22-29); Chloride 105 mmol/L (98-107); Glomerular Filtration Rate 128.1 mL/min (90-130); Glucose 69 mg/dL (65-115); Osmolality Calculated 289 mOsm/kg (285-295); Potassium 4.1 mmol/L (3.5-5.1); Sodium 141 mmol/L (136-145)
[2022-07-19] MEDS: meropenem 1,000 MG in sodium chloride 0.9% (plus) 50 ML 100 MG IV ×2 (05:56→13:19)
[2022-07-19] MEDS: pregabalin 100 mg Capsule PO (05:57)
[2022-07-19] MEDS: baclofen 10 mg Tablet 20 MG PO ×2 (05:57→13:20)
[2022-07-19] MEDS: morphine ER (12 HR) 15 mg Tablet PO ×2 (05:57→13:20)
--- NOTE | 2022-07-19 06:28 | P.DS_ITS ---
Discharge Providers Date of Admission: 07/15/22 17:26 Date of Discharge: July 19, 2022 Attending Provider at Admission: Aletha Veronica MD Attending Provider at Discharge: Aletha Veronica MD Primary Care Provider: Jarod De La Garza MD Diagnoses at Discharge Discharge Diagnosis (1) Complicated urinary tract infection: Status: Acute (2) Multiple drug resistant organism (MDRO) culture positive: Status: Acute (3) Decubitus ulcer of left heel, unstageable: Status: Acute (4) Deep tissue injury: Status: Acute (5) Pulmonary embolus: Status: Acute (6) Multiple sclerosis: Status: Acute (7) Neuromuscular weakness: Status: Acute (8) Recurrent UTI: Status: Acute (9) AVN of femur: Status: Acute Reason for Visit Reason for Visit: infusin sent from jarod de la garza [facility] Course Hospital Course 56-year female with medical conditions such as antiphospholipid syndrome PE multiple sclerosis Laporte's disease end-stage multiple sclerosis neurogenic bladder suprapubic catheter recurrent UTIs presented to the hospital from the clinic when she was diagnosed with ESBL Pseudomonas. Outpatient cultures history reports were reviewed. Patient has been afebrile blood cultures obtained, she has not noticed any fever at home patient is stating that whenever her blood pressure drops she starts taking had a cortisone 5 mg and then stopped on her own. She also takes full course on a daily basis, during hospitalization no signs of hypertension or addisonian crisis noted, we have requested midline placement and ertapenem 1 g daily for 14 days for ESBL Pseudomonas. We will set up home health services for antibiotic coverage. Patient requires frequent opioids, muscle relaxant, anxiolytics on daily basis. She eats regular diet. She does have chronic lower extremity swelling she is also on Coumadin for history of pulmonary embolism and antiphospholipid syndrome. Physical Exam Narrative: Triplegic She is able to move her left arm Currently not in pain Lower 70 swelling is chronic She does have sacral and pressure ulcers around her toes and heels Hemodynamically stable Currently on room air Pleasant and cooperative Discharge Data Studies Completed and Pending Pending at discharge Category Date Time Status CXRP [XR chest 1V portable [id number]] Routine Exams 07/16/22 09:42 Ordered Blood Culture Stat Lab 07/15/22 15:23 Results Urine Culture Stat Lab 07/15/22 18:00 Uncollected Laboratory Results WBC 6.1 10^3/uL (4.0-10.0) 07/16/22 07:15 RBC 3.96 10^6/uL (4.1-5.3) L 07/16/22 07:15 Hgb 11.4 g/dL (11.5-15.3) L 07/16/22 07:15 Hct 35.4 % (37.0-47.0) L 07/16/22 07:15 MCV 89.4 fl (81-99) 07/16/22 07:15 MCH 28.8 pg (28.0-34.0) 07/16/22 07:15 MCHC 32.2 g/dL (30.0-36.0) 07/16/22 07:15 RDW 14.9 % (12.1-15.1) 07/16/22 07:15 Plt Count 88 10^3/cmm (130-400) L 07/16/22 07:15 MPV 12.9 fL (7.4-10.4) H 07/16/22 07:15 Neut % (Auto) 48.2 % 07/16/22 07:15 Lymph % (Auto) 40.2 % 07/16/22 07:15 [place] % (Auto) 7.4 % 07/16/22 07:15 Eos % (Auto) 3.3 % 07/16/22 07:15 Baso % (Auto) 0.7 % 07/16/22 07:15 Neut # (Auto) 2.92 10^3/uL (1.8-7.7) 07/16/22 07:15 Lymph # (Auto) 2.4 10^3/uL (0.8-4.8) 07/16/22 07:15 [place] # (Auto) 0.5 10^3/uL (0.2-0.9) 07/16/22 07:15 Eos # (Auto) 0.2 10^3/uL (0.0-0.8) 07/16/22 07:15 Baso # (Auto) 0.0 10^3/uL (0.0-0.1) 07/16/22 07:15 Nucleated RBC % (auto) 0 % 07/16/22 07:15 Nucleated RBCs # 0.0 /100WBC 07/16/22 07:15 PT 28.90 SECONDS (12.1-14.9) H 07/15/22 15:13 INR 2.61 (0.8-1.2) H 07/15/22 15:13 APTT 51.1 SECONDS (23.9-36.7) H 07/15/22 15:13 Sodium 139 mmol/L (136-145) 07/16/22 09:12 Potassium 3.8 mmol/L (3.5-5.1) 07/16/22 09:12 Chloride 105 mmol/L (98-107) 07/16/22 09:12 Carbon Dioxide 27 mmol/L (22-29) 07/16/22 09:12 Anion Gap 10.8 (5-19) 07/16/22 09:12 BUN 6 mg/dL (6-20) 07/16/22 09:12 Creatinine 0.5 mg/dL (0.5-0.9) 07/16/22 09:12 GFR Calculation 128.1 mL/min (90-130) 07/16/22 09:12 Glucose 90 mg/dL (65-115) 07/16/22 09:12 Calculated Osmolality 285 mOsm/kg (285-295) 07/16/22 09:12 Lactic Acid 0.6 mmol/L (0.5-2.2) 07/15/22 15:13 Calcium 8.0 mg/dL (8.5-10.5) L 07/16/22 09:12 Magnesium 1.9 mg/dL (1.7-2.3) 07/16/22 09:12 Total Bilirubin 0.2 mg/dL (0.15-1.2) 07/15/22 15:13 AST 15 U/L (0-32) 07/15/22 15:13 ALT < 5 U/L (0-33) 07/15/22 15:13 Alkaline Phosphatase 87 U/L (35-105) 07/15/22 15:13 C-Reactive Protein 29.8 mg/L (0.0-4.9) H 07/16/22 09:12 Total Protein 6.3 g/dL (6.6-8.7) L 07/15/22 15:13 Albumin 3.4 g/dL (3.5-5.2) L 07/15/22 15:13 Globulin 2.9 g/dL (1.3-4.6) 07/15/22 15:13 Procalcitonin 0.03 ng/mL (0-0.5) 07/15/22 15:13 Vitals Last Vital Signs Temp 99.1 F 07/15/22 23:52 Pulse 69 07/16/22 08:50 Resp 12 07/16/22 08:50 BP 92/58 07/16/22 08:50 Pulse Ox 93 07/16/22 08:50 O2 Del Method Room Air 07/16/22 08:00 Discharge Plan Discharge Patient Disposition: Xfer SNF Condition: Stable Prescriptions: New ertapenem 1 gram recon soln 1 g IM DAILY 14 Days Qty: 10 0RF Continued sertraline 100 mg tablet 150 mg PO BEDTIME zinc gluconate 100 mg tablet 100 mg PO DAILY@18 magnesium oxide 400 mg magnesium capsule 400 mg PO DAILY@10 albuterol sulfate 2.5 mg /3 mL (0.083 %) solution for nebulization 2.5 mg INHALATION Q4H PRN (Reason: Shortness Of Breath) montelukast [Singulair] 10 mg tablet 10 mg PO DAILY levothyroxine [Synthroid] 125 mcg tablet 62.5 mcg PO DAILY Flovent Diskus 100 mcg/actuation blister with device 1 inh INHALATION BID PRN (Reason: Shortness Of Breath) Atrovent HFA 17 mcg/actuation HFA aerosol inhaler 1 puff INHALATION BID PRN (Reason: Shortness Of Breath) (DME) Wheel Chair Repairs See Rx Instructions .Route .MEDSUPPLY Qty: 1 0RF Rx Instructions: As directed baclofen 10 mg tablet See Rx Instructions .ROUTE .COMPLEX Qty: 240 3RF Dose Instruction: TAKE 2 TABLETS BY MOUTH EVERY MORNING, TWO at NOON, THREE AT BEDTIME, THEN ON E NEEDED FOR MUSCLE SPASMS Rx Instructions: TAKE 1 TABLET AT 0600, 2 TABLETS 1400, AND 2 TABLETS 2200, AND 2 TABLETS NEEDED FOR MUSCLE SPASMS sumatriptan succinate [Imitrex] 50 mg tablet 50 mg PO BID PRN (Reason: Migraine Headache) Qty: 9 0RF cyclobenzaprine 10 mg tablet See Rx Instructions .ROUTE .COMPLEX Qty: 60 9RF Dose Instruction: TAKE 1 TABLET BY MOUTH TWICE DAILY NEEDED FOR MUSCLE SPASMS Rx Instructions: TAKE 1 TABLET BY MOUTH TWICE DAILY NEEDED FOR MUSCLE SPASMS clonazepam 0.5 mg tablet 0.5 mg PO TID PRN (Reason: anxiety) Qty: 270 3RF methylphenidate HCl 20 mg tablet 20 mg PO TID PRN (Reason: sleepiness) 30 Days Qty: 90 0RF Rx Instructions: DO NOT FILL UNTIL 06/06/2022 morphine 15 mg tablet extended release 15 mg PO Q8H 30 Days Qty: 90 0RF Rx Instructions: DO NOT FILL UNTIL 05/06/2022 oxycodone 10 mg tablet 10 mg PO QID PRN (Reason: pain) 30 Days Qty: 120 0RF Rx Instructions: Do not fill until 05/30/2022 pregabalin [Lyrica] 100 mg capsule 100 mg PO TID Qty: 90 5RF Rx Instructions: take morning and noon cholecalciferol (vitamin D3) [Vitamin D3] 10 mcg (400 unit) Capsule 10 mcg PO DAILY@18 gentamicin 0.1 % ointment 1 applic TOPICAL DAILY Rx Instructions: Apply to wounds ascorbic acid (vitamin C) [Vitamin C] 500 mg Tablet 500 mg PO DAILY vitamin B complex Tablet 1 tab PO DAILY potassium gluconate 595 mg (99 mg) Tablet 99 mg PO DAILY fludrocortisone 0.1 mg Tablet 0.1 - 0.2 mg PO DAILY PRN (Reason: Hypotension) Rx Instructions: for SBP <85 or MAP <65 warfarin 1 mg tablet See Rx Instructions .ROUTE .COMPLEX Qty: 0 0RF Protocol: Dose Management Condition: Tuesday Dose/Route: 5 mg Instruction: 5 x 1 mg tablets Condition: Tuesday Dose/Route: 0 mg Instruction: 0 tablets Condition: Tuesday Dose/Route: 4.5 mg Instruction: 4.5 x 1 mg tablets Condition: Tuesday Dose/Route: 5 mg Instruction: 5 x 1 mg tablets Condition: Dose/Route: 4.5 mg Instruction: 4.5 x 1 mg tablets Condition: Tuesday Dose/Route: 5 mg Instruction: 5 x 1 mg tablets Condition: Tuesday Dose/Route: 4.5 mg Instruction: 4.5 x 1 mg tablets Protocol Text: Adjustment Start Date: Tuesday10/20/21 INR Value: 4.8 INR Date: 10/20/21 Recheck Date: 10/27/21 Rx Instructions: 6 mg //tue, 5.5 mg rest of the days docusate sodium 100 mg Capsule 100 mg PO DAILY hydrocortisone 10 mg tablet 10 mg PO BID PRN (Reason: Hypotension) Rx Instructions: for SBP < 85 or MAP < 60 Acidophilus Capsule 500 mmu cells PO TIDWMEAL Sudogest 60 mg tablet 60 mg PO BID PRN (Reason: Allergy Symptoms) Referrals: [facility] [Outside] Jarod De La Garza MD [Primary Care Provider] - Patient Instructions: Ertapenem (By injection) (INVanz), Opioid Safety Discharge Attestations Time Spent in Discharge Care*: greater than 30 min Quality Metrics Clinical Quality Measures [ No reported AMI, CVA or VTE this stay] Coding Level of Care Code Acute Code for Chg Fwd Diagnoses Complicated urinary tract infection N39.0 Multiple drug resistant organism (MDRO) culture positive Z16.24 Decubitus ulcer of left heel, unstageable L89.620 Deep tissue injury T14.8XXA Pulmonary embolus I26.99 Multiple sclerosis G35 Neuromuscular weakness G70.9 Recurrent UTI N39.0 AVN of femur M87.059
[2022-07-19] MEDS: lactobacillus 1 Tablet 1 TAB PO (08:38)
[2022-07-19] MEDS: methylphenidate 10 mg Tablet PO (08:38)
[2022-07-19] MEDS: fludrocortisone 0.1 mg Tablet PO (08:38)
[2022-07-19] MEDS: levothyroxine 125 mcg Tablet 62.5 MCG PO (08:39)
[2022-07-19] MEDS: sertraline 100 mg Tablet 150 MG PO (08:39)
[2022-07-19] MEDS: ascorbic acid 500 mg Tablet PO (08:39)
[2022-07-19] MEDS: sodium chloride 0.9% 1,000 ML 100 ML IV (08:40)
[2022-07-19] MEDS: magnesium oxide 400 mg tablet PO (09:03)
[2022-07-19 10:22] LABS: SARS Covid-2 Antigen negative
--- NOTE | 2022-07-19 11:39 | PC.SOCIAL ---
IMM Update pg 2 of IMM updated and reviewed w/ patient and her . Copy provided and Copy dated, initialed and placed in chart.
[2022-07-19] MEDS: CLONazepam 0.5 mg Tablet PO (13:19)
[2022-07-19] MEDS: warfarin 5 mg Tablet PO (13:20)
--- NOTE | 2022-07-19 13:43 | PC.NURSE ---
Report called to yolette mchugh
--- NOTE | 2022-07-19 13:55 | PC.NURSE ---
Discharge med Notified hospitalist regarding route IM of pt's antibiotic needs to be cancelled since it was changed to IV. Called [facility] to notifiy that 2 orders were put in for this pt and the IM route is changed to IV route. Notified [facility] regarding the Rx was not on [facility] record list.
[2022-07-19] MEDS: oxyCODONE 5 mg IR Tab/Cap 10 MG PO (14:03)
== END 2022-07-19 16:29 | disposition skilled nursing facility (03) | DRG 699 ==
LOC: ER 16:32 → CSU 18:16
PROVIDERS: Admitting Provider Internal Medicine; Emergency Provider Emergency Medicine; PCP Family Medicine; Visit Provider Internal Medicine
DX: T83.518A Infection and inflammatory reaction due to other urinary catheter, initial encounter (principal); D68.61 Antiphospholipid syndrome; L89.154 Pressure ulcer of sacral region, stage 4; E27.1 Primary adrenocortical insufficiency; Z16.12 Extended spectrum beta lactamase (ESBL) resistance; Y73.8 Miscellaneous gastroenterology and urology devices associated with adverse incidents, not elsewhere classified; G35 Multiple sclerosis; G83.89 Other specified paralytic syndromes; N31.9 Neuromuscular dysfunction of bladder, unspecified; Z87.440 Personal history of urinary (tract) infections; B96.5 Pseudomonas (aeruginosa) (mallei) (pseudomallei) as the cause of diseases classified elsewhere; Z87.11 Personal history of peptic ulcer disease; Z79.51 Long term (current) use of inhaled steroids; Z79.01 Long term (current) use of anticoagulants; Z86.718 Personal history of other venous thrombosis and embolism; M32.9 Systemic lupus erythematosus, unspecified; L89.159 Pressure ulcer of sacral region, unspecified stage; Z66 Do not resuscitate
CPT/HCPCS: 36415; 36569; 71045; 80048; 80053; 83605; 83735; 84145; 85025; 85610; 85730; 86140; 87040; 87426; 94640; 96365; 99285; G0378; J1335; J1720; J2185; J2543; J7030; J7120

== ENCOUNTER → 2022-09-29 16:47 | Outpatient (BNVA) | payer MEDICARE, OTHER, SELFPAY | PROVIDERS: PCP Family Medicine; Visit Provider Specialist | DX: G35 Multiple sclerosis (principal); G70.9 Myoneural disorder, unspecified; M32.9 Systemic lupus erythematosus, unspecified; R29.90 Unspecified symptoms and signs involving the nervous system; L89.620 Pressure ulcer of left heel, unstageable | CPT/HCPCS: 99215 ==

== ENCOUNTER 2023-03-11 16:18 | Outpatient (CLI) | payer MEDICARE, OTHER, SELFPAY ==
[2023-03-11 17:34] LABS: Urine Appearance Hazy (CLEAR); Urine Color Yellow (Yellow); pH Urine 8 (5-7)
[2023-03-11 17:35] LABS: Add Urine Culture? Yes; Add Urine Microscopic? YES; Amorphous Sediment Urine 1+ /hpf; Bacteria Urine 2+ /hpf; Bilirubin Urine Neg (Negative); Blood Urine 3+ (Negative); Glucose Urine UA Norm (Normal); Ketones Urine Negative (Negative); Leukocyte Esterase Urine 2+ (Negative); Nitrate Urine Positive (Negative); Protein Urine 1+ (Negative); RBC Urine 25-40 /hpf (0-2); Squamous Epithelial Cell Urine 0-4 /hpf (0-5); Sulfosalicylic Acid Urine Positive (Negative); Urobilinogen Urine Norm (Negative); WBC Urine >100 /hpf (0-5)
== END 2023-03-11 16:19 | disposition home or self-care (01) ==
LOC: LAB 16:20
PROVIDERS: PCP Family Medicine; Visit Provider Family Medicine
DX: Z01.89 Encounter for other specified special examinations; Z87.440 Personal history of urinary (tract) infections
CPT/HCPCS: 81001; 87077; 87086; 87186

== ENCOUNTER → 2023-03-14 11:50 | Outpatient (BNVA) | payer MEDICARE, OTHER, SELFPAY | PROVIDERS: PCP Family Medicine; Visit Provider Internal Medicine Rheumatology | DX: D68.61 Antiphospholipid syndrome (principal); R76.8 Other specified abnormal immunological findings in serum; G35 Multiple sclerosis | CPT/HCPCS: 99214 ==

== ENCOUNTER → 2023-03-28 15:45 | Outpatient (BNVA) | payer MEDICARE, OTHER, SELFPAY | PROVIDERS: PCP Family Medicine; Visit Provider Specialist | DX: G35 Multiple sclerosis (principal); G70.9 Myoneural disorder, unspecified; Z86.711 Personal history of pulmonary embolism; M32.9 Systemic lupus erythematosus, unspecified | CPT/HCPCS: 99214 ==

== ENCOUNTER 2023-04-22 09:54 | Outpatient (CLI) | payer MEDICARE, OTHER, SELFPAY ==
[2023-04-22 10:48] LABS: Blood Urine 3+ (Negative); Glucose Urine UA Norm (Normal); Ketones Urine Negative (Negative); Protein Urine Neg (Negative); Urine Appearance Cloudy (CLEAR); Urine Color Colorless (Yellow); pH Urine 8 (5-7)
[2023-04-22 10:49] LABS: Add Urine Microscopic? YES; Bilirubin Urine Neg (Negative); Leukocyte Esterase Urine 2+ (Negative); Nitrate Urine Positive (Negative); Sulfosalicylic Acid Urine Negative (Negative); Urobilinogen Urine Norm (Negative)
[2023-04-22 10:50] LABS: Add Urine Culture? No; Amorphous Sediment Urine 2+ /hpf; Bacteria Urine 3+ /hpf; RBC Urine 0-4 /hpf (0-2); Squamous Epithelial Cell Urine 0-4 /hpf (0-5); WBC Urine 0-4 /hpf (0-5)
== END 2023-04-22 09:55 | disposition home or self-care (01) ==
LOC: LAB 09:55
PROVIDERS: PCP Family Medicine; Visit Provider Family Medicine
DX: Z87.440 Personal history of urinary (tract) infections (principal); Z43.5 Encounter for attention to cystostomy
CPT/HCPCS: 81001; 87077; 87086; 87186

== ENCOUNTER 2023-04-28 17:54 | Inpatient (IN) | payer MEDICARE, OTHER, SELFPAY ==
[2023-04-28] VITALS (7 sets, daily range): BP systolic 80–113; BP diastolic 55–71; PULSE 71–92; RESP 16–18; TEMP 36.9; O2SAT 93–97; BMI 23.3
--- NOTE | 2023-04-28 18:27 | ED_ITS ---
HPI - Female Genitourinary 2 General: Chief complaint: Urogenital-Female Stated complaint: possible uti Time Seen by Provider: 04/28/23 18:06 History of Present Illness: Patient presents to the ER with at bedside. Patient been having UTI symptoms such as fever chills, bladder spasms, confusion, nausea vomiting patient has been says she gets these frequently and these are the classic signs. Patient was seen by her doctor at [facility] within the last week and workup but they do not know any results and they did not call any medicines. Review of Systems 2 General: Reports: 10 or more systems reviewed and unremarkable except in HPI and below PFSH ED 2 PFSH: Medical History ESBL (extended spectrum beta-lactamase) producing bacteria infection Multiple drug resistant organism (MDRO) culture positive Complicated urinary tract infection Decubitus ulcer of left heel, unstageable Deep tissue injury Pulmonary embolus Multiple sclerosis Neuromuscular weakness Multiple sclerosis Recurrent UTI AVN of femur Positive JARRED (antinuclear antibody) High risk medication use Hx of pulmonary embolus Hx of deep venous thrombosis Wheelchair bound Inflammatory arthritis Multiple sclerosis Neuralgia and neuritis, unspecified Lyons disease Systemic lupus erythematosus, unspecified Antiphospholipid syndrome Pulmonary embolism Surgical History Hx of cholecystectomy History of bone marrow biopsy H/O chest tube placement Family History Denies family history of Rheumatoid arthritis Lupus Social History Smoking and tobacco/nicotine status: never used tobacco/nicotine Quit status (tobacco/nicotine): has quit using Year quit tobacco: 2009 Former quit date comment: Hx of 1 PPD x 13 Years Alcohol intake: former Substance/Drug Use: never Caregiver/support person: Yes () Lives independently: Yes Household members: spouse Marital status: Current occupational status: disabled Do you think of yourself as: Straight/Heterosexual Current gender identity: Female Physical Exam 2 Const: COMMON NORMALS: no acute distress, average body habitus, patient oriented x3, no limitations, healthy appearing, alert and well nourished Neck/C-Spine: COMMON NORMALS: no JVD Chest: COMMONS NORMALS: normal inspection of the chest and normal palpation of entire chest wall Resp: COMMON NORMALS: normal respiratory effort, No retractions, No use of accessory muscles and clear to auscultation bilaterally AUSCULTATION: clear to auscultation bilaterally Cardio: COMMON NORMALS: no JVD, regular rate, regular rhythm, S1 normal heart sound present, S2 normal heart sound present, No gallops present (Cardio), No clicks present (Cardio), No murmurs present (Cardio) and No rub (Cardio) R ATE: regular rate RHYTHM: regular rhythm HEART SOUNDS: S1 normal heart sound present and S2 normal heart sound present GI: COMMON NORMALS: Normal to inspection, nondistended, normoactive bowel sounds present, Soft to palpation, non-tender, No hepatosplenomegaly present and no masses PALPATION: Yes Soft to palpation and Yes No hepatosplenomegaly present Neuro: COMMON NORMALS: patient oriented x3 SENSORIUM/ORIENTATION: Yes alert Course 2 Vital Signs: Vital signs: Vital Signs Temperature 98.4 F 04/28/23 17:56 Pulse Rate 75 04/28/23 22:17 Respiratory Rate 16 04/28/23 22:17 Blood Pressure 100/55 04/28/23 22:17 Pulse Oximetry 95 04/28/23 22:17 MDM - Female Medical Decision Making Lab work was obtained that included CBC CMP blood cultures and urinalysis. Urinalysis showed positive signs of urinary tract infection. Review of old culture and sensitivities showed Pseudomonas growth that was sensitive to meropenem Dr. Alonzo was consulted who agreed to place patient in [facility] for further evaluation and treatment. Patient be started on meropenem here in ER. Differential Diagnosis Unlikely abdominal pain, acute appendicitis, calculus of kidney, constipation, diverticulitis, endometriosis, gastroenteritis, pancreatitis or small bowel obstruction Medical Records I reviewed the patient's medical records. Lab Data I reviewed the patient's lab results. 04/28/23 20:26 04/28/23 20: Laboratory Results WBC 8.60 10^3/uL (3.29-11.43) 04/28/23 20: RBC 4.45 10^6/uL (3.85-5.65) 04/28/23 20: Hgb 12.90 g/dL (11.27-16.99) 04/28/23 20: Hct 41.0 % (36-47) 04/28/23 20: MCV 92.1 fl (85-98) 04/28/23 20: MCH 29.0 pg (27-33) 04/28/23 20: MCHC 31.5 g/dL (30-55) 04/28/23 20: RDW 15.4 % (12.1-15.1) H 04/28/23 20: Plt Count 83 10^3/cmm (157-399) L 04/28/23 20: MPV 13.7 fL (7.4-10.4) H 04/28/23 20: Neut % (Auto) 69.9 % 04/28/23 20: Lymph % (Auto) 22.6 % 04/28/23 20: [place] % (Auto) 6.5 % 04/28/23 20: Eos % (Auto) 0.5 % 04/28/23 20: Baso % (Auto) 0.3 % 04/28/23: Neut # (Auto) 6.01 10^3/uL (1.8-7.7) 04/28/23 20: Lymph # (Auto) 1.9 10^3/uL (0.8-4.8) 04/28/23 20: [place] # (Auto) 0.6 10^3/uL (0.2-0.9) 04/28/23 20: Eos # (Auto) 0.0 10^3/uL (0.0-0.8) 04/28/23 20: Baso # (Auto) 0.0 10^3/uL (0.0-0.1) 04/28/23 20: Nucleated RBC % (auto) 0 % 04/28/23: Nucleated RBCs # 0.0 /100WBC 04/28/23 20: Sodium 139 mmol/L (136-145) 04/28/23 20: Potassium 3.9 mmol/L (3.5-5.1) 04/28/23 20: Chloride 104 mmol/L (98-107) 04/28/23 20: Carbon Dioxide 28 mmol/L (22-29) 04/28/23 20: Anion Gap 10.9 (5-19) 04/28/23 20: BUN 10 mg/dL (6-20) 04/28/23 20: Creatinine 0.5 mg/dL (0.5-0.9) 04/28/23 20: GFR Calculation 127.6 mL/min (90-130) 04/28/23 20: Glucose 90 mg/dL (65-115) 04/28/23 20: Calculated Osmolality 287 mOsm/kg (285-295) 04/28/23 20: Calcium 8.5 mg/dL (8.5-10.5) 04/28/23 20: Total Bilirubin 0.3 mg/dL (0.15-1.2) 04/28/23 20: AST 21 U/L (0-32) 04/28/23 20: ALT 9 U/L (0-33) 04/28/23 20: Alkaline Phosphatase 111 U/L (35-105) H 04/28/23 20: Total Protein 6.4 g/dL (6.6-8.7) L 04/28/23 20: Albumin 3.5 g/dL (3.5-5.2) 04/28/23 20: Globulin 2.9 g/dL (1.3-4.6) 04/28/23 20: Urine Color Yellow (Yellow) 04/28/23 18:00 Urine Appearance Cloudy (CLEAR) A 04/28/23 18:00 Urine pH 5 (5-7) 04/28/23 18:00 Ur Specific [place] 1.020 (1.005-1.030) 04/28/23 18:00 Urine Protein 2+ (Negative) H 04/28/23 18:00 Urine Glucose (UA) Norm (Normal) 04/28/23 18:00 Urine Ketones 1+ (Negative) H 04/28/23 18:00 Urine Blood 3+ (Negative) H 04/28/23 18:00 Urine Nitrate Positive (Negative) H 04/28/23 18:00 Urine Bilirubin 1+ (Negative) H 04/28/23 18:00 Urine Urobilinogen 1 mg/dL (Negative) H 04/28/23 18:00 Ur Leukocyte Esterase 2+ (Negative) H 04/28/23 18:00 Urine RBC 0-4 /hpf (0-2) H 04/28/23 18:00 Urine WBC 80-100 /hpf (0-5) H 04/28/23 18:00 Ur Squamous Epith Cells None /hpf (0-5) 04/28/23 18:00 Amorphous Sediment Not Reportable 04/28/23 18:00 Urine Bacteria 2+ /hpf (NONE) H 04/28/23 18:00 Urine Mucus 1+ /hpf 04/28/23 18:00 All radiology interpretation(s) finalized by discharge Discharge Plan Discharge Patient Disposition: Admitted As Inpatient Clinical Impression: Multiple sclerosis Urinary tract infection Qualifiers: Urinary tract infection type: acute cystitis Hematuria presence: with hematuria Qualified Code(s): N30.01 - Acute cystitis with hematuria Condition: Stable Coding Level of Care Code ED Customer Sales Service Manager for Betty Mccarthy
[2023-04-28 19:38] LABS: Add Urine Microscopic? YES; Bilirubin Urine 1+ (Negative); Blood Urine 3+ (Negative); Glucose Urine UA Norm (Normal); Ketones Urine 1+ (Negative); Leukocyte Esterase Urine 2+ (Negative); Nitrate Urine Positive (Negative); Protein Urine 2+ (Negative); Urine Appearance Cloudy (CLEAR); Urine Color Yellow (Yellow); Urobilinogen Urine 1 mg/dL (Negative); pH Urine 5 (5-7)
[2023-04-28 19:39] LABS: Add Urine Culture? Yes; Bacteria Urine 2+ /hpf; Mucus Urine 1+ /hpf; RBC Urine 0-4 /hpf (0-2); WBC Urine 80-100 /hpf (0-5)
[2023-04-28 20:55] LABS: Basophils % 0.3 %; Eosinophils % 0.5 %; Lymphocytes # 1.9 10^3/uL (0.8-4.8); Lymphocytes % 22.6 %; Mean Corpuscular HGB Conc 31.5 g/dL (30-55); Mean Corpuscular Volume 92.1 fl (85-98); Mean Platelet Volume 13.7 fL (7.4-10.4); Monocytes # 0.6 10^3/uL (0.2-0.9); Monocytes % 6.5 %; Neutrophils # 6.01 10^3/uL (1.8-7.7); Neutrophils % 69.9 %; Nucleated Red Blood Cells % 0 %; Platelet Count 83 10^3/cmm (157-399); Red Blood Count 4.45 10^6/uL (3.85-5.65); Red Cell Distribution Width 15.4 % (12.1-15.1)
[2023-04-28 21:13] LABS: Alanine Aminotransferase 9 U/L (0-33); Albumin Level 3.5 g/dL (3.5-5.2); Alkaline Phosphatase 111 U/L (35-105); Anion Gap 10.9 (5-19); Aspartate Amino Transferase 21 U/L (0-32); Blood Urea Nitrogen 10 mg/dL (6-20); Calcium 8.5 mg/dL (8.5-10.5); Carbon Dioxide 28 mmol/L (22-29); Chloride 104 mmol/L (98-107); Globulin 2.9 g/dL (1.3-4.6); Glomerular Filtration Rate 127.6 mL/min (90-130); Glucose 90 mg/dL (65-115); Osmolality Calculated 287 mOsm/kg (285-295); Potassium 3.9 mmol/L (3.5-5.1); Sodium 139 mmol/L (136-145); Total Bilirubin 0.3 mg/dL (0.15-1.2); Total Protein 6.4 g/dL (6.6-8.7)
[2023-04-28] MEDS: meropenem 1,000 MG in sodium chloride 0.9% (plus) 50 ML 100 MG IV (22:09)
[2023-04-28] MEDS: sodium chloride 0.9% 500 ML 999 ML IV (23:02)
[2023-04-28] MEDS: hydrocortisone 100 mg/2 mL SDV IVP (23:22)
--- NOTE | 2023-04-28 23:36 | P.HP_ITS ---
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 Blood pressure low, map down as low as 56 mmHg. Her is at bedside provides history, she is able to provide minimal review of systems, reports some chronic aches in her knees, hips, requesting to be repositioned. Only new complaint is pain in urinary bladder. Review of Systems 2 Const: Reports: chills, fatigue and malaise ENMT: Denies: throat pain Card: Denies: chest pain, edema, pre-syncope or dyspnea on exertion Resp: Denies: dyspnea, productive cough, change in phlegm color or hemoptysis GI: Denies: abdominal pain, nausea, vomiting, diarrhea, constipation, hematochezia or melena : Reports: urinary frequency, urinary urgency and other (lower abdominal/bladder pain); Denies: flank pain or hematuria Musc: Reports: extremity pain; Denies: back pain, joint swelling or joint redness Skin/Breast: Denies: rash or new lesions Neuro: Reports: confusion; Denies: headache(s) Medications/Allergies Home Medications Medication Instructions Recorded Confirmed Last Taken Type albuterol sulfate 2.5 mg/3 mL 2.5 mg inhalation Q4H PRN 03/21/19 03/28/23 Unknown History (0.083 %) solution for nebulization Shortness Of Breath magnesium oxide 400 mg PO DAILY@10 03/21/19 03/28/23 09/02/20 History montelukast 10 mg tablet 10 mg PO DAILY 03/21/19 03/28/23 12/10/20 18:00 History (Singulair) sertraline 100 mg tablet 150 mg PO BEDTIME 03/21/19 03/28/23 09/02/20 History zinc gluconate 100 mg tablet 100 mg PO DAILY@18 03/21/19 03/28/23 09/02/20 History levothyroxine 125 mcg tablet 62.5 mcg PO DAILY 07/02/19 03/28/23 09/02/20 History (Synthroid) fluticasone propionate 100 1 inh inhalation BID PRN Shortness 07/24/19 03/28/23 Unknown History mcg/actuation blister powder for Of Breath inhalation (Flovent Diskus) Wheel Chair Repairs #1 ea 11/06/19 03/28/23 Unknown Rx ipratropium bromide 17 1 puff inhalation BID PRN 06/11/20 03/28/23 Unknown History mcg/actuation HFA aerosol inhaler Shortness Of Breath (Atrovent HFA) cholecalciferol (vitamin D3) 10 10 mcg PO DAILY@18 12/10/20 03/28/23 Unknown History mcg (400 unit) capsule (Vitamin D3) gentamicin 0.1 % topical ointment 1 applic topical DAILY 12/10/20 03/28/23 Unknown History ascorbic acid (vitamin C) 500 mg 500 mg PO DAILY 12/11/20 03/28/23 Unknown History tablet (Vitamin C) fludrocortisone 0.1 mg tablet 0.1 - 0.2 mg PO DAILY PRN 12/11/20 03/28/23 Unknown History Hypotension potassium gluconate 595 mg (99 mg) 99 mg PO DAILY 12/11/20 03/28/23 Unknown History tablet vitamin B complex 1 tab PO DAILY 12/11/20 03/28/23 Unknown History warfarin 1 mg tablet See Rx Instructions .Route 12/16/20 03/28/23 Unknown Rx .COMPLEX #0 tabs Lactobacillus acidophilus 500 mmu cells PO TIDWMEAL 07/15/22 03/28/23 Unknown History (Acidophilus capsule) docusate sodium 100 mg capsule 100 mg PO DAILY 07/15/22 03/28/23 Unknown History hydrocortisone 10 mg tablet 10 mg PO BID PRN Hypotension 07/15/22 03/28/23 Unknown History pseudoephedrine HCl 60 mg tablet 60 mg PO BID PRN Allergy Symptoms 07/15/22 03/28/23 Unknown History (Sudogest) oxycodone 10 mg tablet 10 mg PO QID PRN pain 30 days #120 11/26/22 03/28/23 Unknown Rx tabs oxycodone 10 mg tablet 10 mg PO QID PRN pain 30 days #120 12/02/22 03/28/23 Unknown Rx tabs oxycodone 10 mg tablet 10 mg PO QID PRN pain 30 days #120 12/02/22 03/28/23 Unknown Rx tabs oxycodone 10 mg tablet 10 mg PO QID PRN pain 30 days #120 12/02/22 03/28/23 Unknown Rx tabs morphine 15 mg tablet,extended 15 mg PO Q8H 30 days #90 tabs 12/07/22 03/28/23 Unknown Rx release morphine 15 mg tablet,extended 15 mg PO Q8H 30 days #90 tabs 12/07/22 03/28/23 Unknown Rx release baclofen 10 mg tablet See Rx Instructions .Route 01/24/23 03/28/23 Unknown Rx .COMPLEX #240 tabs clonazepam 0.5 mg tablet 0.5 mg PO TID PRN anxiety #270 tabs 02/03/23 03/28/23 Unknown Rx cyclobenzaprine 10 mg tablet See Rx Instructions .Route 03/01/23 03/28/23 Unknown Rx .COMPLEX #60 tabs methylphenidate HCl 20 mg tablet 20 mg PO TID 30 days #90 tabs 03/04/23 03/28/23 Unknown Rx sumatriptan succinate 50 mg tablet 50 mg PO BID PRN Migraine Headache 03/04/23 03/28/23 Unknown Rx (Imitrex) #9 tabs prednisone 20 mg tablet See Rx Instructions PO .COMPLEX 03/14/23 03/28/23 Unknown Rx PRN joint pain flare #30 tabs methylphenidate HCl 20 mg tablet 20 mg PO TID 1 month #90 tabs 03/28/23 03/28/23 Unknown Rx methylphenidate HCl 20 mg tablet 20 mg PO TID 1 month #90 tabs 03/28/23 03/28/23 Unknown Rx morphine 15 mg tablet,extended 15 mg PO Q8H 1 month #90 tabs 03/28/23 03/28/23 Unknown Rx release morphine 15 mg tablet,extended 15 mg PO Q8H 30 days #90 tabs 03/28/23 03/28/23 Unknown Rx release morphine 15 mg tablet,extended 15 mg PO Q8H 30 days #90 tabs 03/28/23 03/28/23 Unknown Rx release pregabalin 100 mg capsule (Lyrica) 100 mg PO TID #90 caps 03/30/23 Unknown Rx Allergies Allergy/AdvReac Type Severity Reaction Status Date / Time erythromycin base Allergy Unknown Verified 03/28/23 16:42 interferon beta-1b Allergy Unknown Verified 03/28/23 16:42 [From Betaseron] lorazepam [From Ativan] Allergy Unknown Verified 03/28/23 16:42 PFSH Acute 2 PFSH: Medical History ESBL (extended spectrum beta-lactamase) producing bacteria infection Multiple drug resistant organism (MDRO) culture positive Complicated urinary tract infection Decubitus ulcer of left heel, unstageable Deep tissue injury Pulmonary embolus Multiple sclerosis Neuromuscular weakness Multiple sclerosis Recurrent UTI AVN of femur Positive JARRED (antinuclear antibody) High risk medication use Hx of pulmonary embolus Hx of deep venous thrombosis Wheelchair bound Inflammatory arthritis Multiple sclerosis Neuralgia and neuritis, unspecified Bryan disease Systemic lupus erythematosus, unspecified Antiphospholipid syndrome Pulmonary embolism Surgical History Hx of cholecystectomy History of bone marrow biopsy H/O chest tube placement Family History Denies family history of Rheumatoid arthritis Lupus Social History Smoking and tobacco/nicotine status: never used tobacco/nicotine Quit status (tobacco/nicotine): has quit using Year quit tobacco: 2009 Former quit date comment: Hx of 1 PPD x 13 Years Alcohol intake: former Substance/Drug Use: never Caregiver/support person: Yes () Lives independently: Yes Household members: spouse Marital status: Current occupational status: disabled Do you think of yourself as: Straight/Heterosexual Current gender identity: Female Vitals/I&O/Wt Last Vital Signs Temp 98.4 F 04/28/23 17:56 Pulse 71 04/28/23 23:26 Resp 16 04/28/23 23:26 BP 100/65 04/28/23 23:26 Pulse Ox 96 04/28/23 23:26 04/28/23 04/28/23 04/29/23 14:59 22:59 06:59 Intake Total 50 / 50 500 / 550 Balance 50 / 50 500 / 550 Weight last 48 hrs Weight 63.503 kg Physical Exam 2 Narrative: Accompanied by her Const: COMMON NORMALS: alert; negative for patient oriented x3 GENERAL APPEARANCE: cooperative O RIENTATION/CONSCIOUSNESS: Yes awake OTHER: Hard of hearing HENMT: COMMON NORMALS: oropharynx normal Neck/C-Spine: COMMON NORMALS: no JVD Resp: COMMON NORMALS: normal respiratory effort and clear to auscultation bilaterally AUSCULTATION: clear to auscultation bilaterally Cardio: COMMON NORMALS: no JVD, regular rhythm, S1 normal heart sound present, S2 normal heart sound present and No murmurs present (Cardio) RHYTHM: regular rhythm HEART SOUNDS: S1 normal heart sound present and S2 normal heart sound present GI: COMMON NORMALS: Normal to inspection, nondistended, normoactive bowel sounds present, Soft to palpation and non-tender PALPATION: Yes Soft to palpation Extremity: COMMON NORMALS: no joint enlargement and no pedal edema N ARRATIVE EXTREMITY EXAM: Weak Neuro: COMMON NORMALS: patient oriented x3 and moves all extremities S ENSORIUM/ORIENTATION: Yes alert Skin: OTHER: Sacrum not examined at current time with reported small sacral and hip decubs. No other ulcers or rashes noted on LE. Data 04/28/23 20:26 04/28/23 20:26 Micro: Microbiology 04/28/23 22:02 Blood Culture - Preliminary Blood SPECIMEN COLLECTED 04/28/23 21:57 Blood Culture - Preliminary Blood SPECIMEN COLLECTED A&P Assessment and plan (1) Urinary tract infection: Complicated UTI with history of MDRO, pseudomonal infections, currently with acute encephalopathy, systemic symptoms with encephalopathy, chills, malaise, weakness, poor oral intake. With history of Pseudomonas, MDRO organisms started on meropenem, continue. Discussed with will monitor for risk of seizures with antibiotic. Reviewed vitals, CBC, CMP, UA, ER note, discussed with ER provider. Follow-up urine culture. Blood cultures have been obtained as well. Does not fit criteria for sepsis but was hypotensive during ER, MAP down as low as 56. Qualifiers: Hematuria presence: with hematuria Urinary tract infection type: acute cystitis Qualified Code(s): N30.01 - Acute cystitis with hematuria (2) Adrenal insufficiency: Hypotensive in ER, MAP down as low as 56, suspect possible adrenal crisis, did respond to small fluid bolus so far 500 mL saline, blood pressure still soft but better up to 96/58. With history of multiple episodes of steroid therapy in the past, and reports adrenal insufficiency, start stress dose steroids with 100 mg every 6 hours hydrocortisone. De-escalate and taper based on response/condition. Monitor for hyperglycemia. (3) Acute encephalopathy: Acute metabolic encephalopathy with complicated urinary tract infection. Reviewed CMP, electrolytes, renal and liver parameters unremarkable. Follow-up. Treat UTI. Reorient. N.p.o. with sips, chips, meds for now. Reassess mental status. Plan History of VTE: On chronic anticoagulation with warfarin. Check INR. Continue warfarin. Normally on 5 mg daily except Wednesdays and Sundays when she takes 6 mg. Reportedly target INR is for some reason higher at 2.5 and 3.5, although does not have history of mechanical valve, did not remember obvious history of failure of anticoagulation. He states this dose was previously recommended by her graphic art designer Dr. Miranda. Possibly due to antiphospholipid syndrome? History of SLE, inflammatory arthritis Antiphospholipid syndrome: Continue anticoagulation. Check INR. Check lower extremity duplex has been noted some bruise/discoloration in the back of her left calf yesterday although this has been improving. Decubitus ulcers: Sacrum, hip early stage ulcers reported. No cellulitis or complications when seen earlier today by her . Please reassess when her blood pressure is a bit better. Wound care. Add protein supplementation once diet is resumed. Consider wholesale agronomist consultation. End-stage MS: Continues with neurology follow-up of therapy, methylphenidate, opioids. Reviewed neurology note. Goals of care discussion: states that they had recently had a conversation specifically about goals of care, she would be okay for intubation in case of need for transient ventilatory support, but would not want tracheostomy, additionally it would be okay for NGT if needed but not for PEG tube or any other feeding tube going through the abdominal wall. She would not want cardiac resuscitation in case of cardiac arrest. Requested home medications to be confirmed, please review and reconcile once available. Attestations 2 Medical Necessity Statement*: Admission of over 2 midnights anticipated for assessment of management of complicated urinary tract infection, adrenal insufficiency, and lady with multiple comorbidities including VTE, antiphospholipid syndrome, MS, Diagnoses Urinary tract infection N30.01 Hematuria presence: with hematuria Urinary tract infection type: acute cystitis Adrenal insufficiency E27.40 Acute encephalopathy G93.40
[2023-04-29] VITALS (12 sets, daily range): BP systolic 82–99; BP diastolic 48–60; PULSE 66–88; RESP 14–18; TEMP 36.6–37.2; O2SAT 94–98
--- NOTE | 2023-04-29 00:24 | USCV_ITS ---
Deborah Viramontes Age: 57 Gender: F : 1965 Exam Date: 04/29/2023 05:51 Ordering Phys: Stu Alonzo MD Technologist: JOSHUA Exam Location: [facility] [place] Indication: assess for new dvt PROCEDURES: Venous duplex imaging was performed in bilateral lower extremities. The following venous structures were evaluated: common femoral vein, profunda vein, proximal portion of the greater saphenous vein, superficial femoral vein, and the popliteal vein. In addition, the posterior tibial and peroneal trunk were evaluated. Serial compression, augmentation maneuvers, and spectral Doppler flow evaluation were performed. FINDINGS: Normal 2-D Doppler and augmentation and compressibility throughout the lower extremity venous structures. Additional imaging through the proximal calf veins also reveals no thrombus. Limited evaluation of the greater saphenous vein is patent with no thrombus. Unable to visualize posterior tibial veins bilaterally. CONCLUSIONS No DVT bilateral lower extremities. Limited PTV evaluation. Dr. Yolande Burgess DO (Electronically Signed) Final Date: 29 April 2023 07:39 S
[2023-04-29] MEDS: sodium chloride 0.9% 250 ML 999 ML IV (00:54)
[2023-04-29 04:36] LABS: Alanine Aminotransferase 10 U/L (0-33); Albumin Level 3.4 g/dL (3.5-5.2); Alkaline Phosphatase 117 U/L (35-105); Anion Gap 13.9 (5-19); Aspartate Amino Transferase 21 U/L (0-32); Blood Urea Nitrogen 10 mg/dL (6-20); Calcium 8.4 mg/dL (8.5-10.5); Carbon Dioxide 26 mmol/L (22-29); Chloride 102 mmol/L (98-107); Creatinine Clr Calc Pharmacy 125.4062; Glomerular Filtration Rate 127.6 mL/min (90-130); Glucose 185 mg/dL (65-115); Osmolality Calculated 290 mOsm/kg (285-295); Phosphorus 2.8 mg/dL (2.5-4.5); Potassium 3.9 mmol/L (3.5-5.1); Sodium 138 mmol/L (136-145); Total Bilirubin 0.2 mg/dL (0.15-1.2); Total Protein 6.4 g/dL (6.6-8.7)
[2023-04-29] MEDS: lactobacillus 1 Tablet 1 TAB PO ×5 (05:03→20:00)
[2023-04-29] MEDS: meropenem 1,000 MG in sodium chloride 0.9% (plus) 50 ML 100 MG IV ×3 (05:03→20:06)
[2023-04-29] MEDS: hydrocortisone 100 mg/2 mL SDV IVP (05:03)
[2023-04-29 05:16] LABS: INR 2.93 (0.8-1.2)
--- NOTE | 2023-04-29 09:20 | PC.PHAR ---
[id number] BRINGING RX BOTTLES AND WILL MEET ME IN THE ROOM WITHIN THE HOUR. 04/29/23 9:20AM
--- NOTE | 2023-04-29 09:31 | PC.SOCIAL ---
Pg 2 IMM Explained to pt Pg 2 IMM. No questions voiced. Provided pt a copy. Initialed, dated, & timed a copy & placed in chart.
--- NOTE | 2023-04-29 09:46 | PC.CHAP ---
Pastoral Care Encounter/Spiritual Assessment Type of Contact [] Declined concrete mixer operator helper visit [] Patient/Family/Request visit [] Outpatient visit [] Follow-up visit [] Physician referral [] Code/Alert [] Routine visit [] Staff referral [] Actively dying [x] Patient sleeping [] Family support [] [] Out of room [] Palliative care [] [] Receiving care in room [] Pre-surgical visit [] Trauma [] Long length of stay [] ICU visit [] Other: Relational/Emotional Strength [] Patient feels connected with others/family/visitors/staff [] Distress [] Loneliness/isolation [] Abandonment Spirituality of Patient [] Person of Shefali [] Attends Episcopalian of their Shefali [] Believes in Prayer [] Reads Bible or Samaritan materials [] There are Spiritual issues to be addressed Plate Gauger Interventions [] Prayer [] Active listening [] Non-anxious presence [] Spiritual/emotional support [] Crisis/trauma care [] Spiritual counseling [] Bereavement support [] Provided bereavement packet [] Provided Bible/devotional materials [] Provided toy/stuffed animal, coloring book to patient or family member [] Provided Communion [] Anointing/[place]ogg [] Salvation [] Completed spiritual assessment [] Other: Impact on Illness or Injury [] Angry [] Fearful [] Anxious [] Often cries [] Exhaustion [] Unable to work [] Unable to attend mosque [] Unable to walk/stand [] Unable to read [] Unable to drive [] Unable to eat/drink [] Unable to sleep [] Unable to be with family [] Patient intubated [] Other: Summary Time spent with patient
[2023-04-29] MEDS: morphine 4 mg/mL SDV 1 mL 2 MG IVP (11:11)
--- NOTE | 2023-04-29 11:14 | PC.PHAR ---
SPOUSE ARRIVED AT 10:50AM TO GO OVER MEDICATIONS-BROUGHT THE BOTTLES. PT IS OFF ALL SUPPLEMENTS OVER THE COUNTER EXCEPT ACIDOPHILUS WHICH SHE TAKES WHEN ON ANTIBIOTICS. REMOVED ALL OLD PAIN MEDICATIONS THAT HAVE . BACLOFEN IS NOW 2 IN AM, 2 IN AFTERNOON AND 3 IN PM. THERE WERE CHANGES TO WARFARIN. PT COMPLAINING ABOUT PAIN AND SPASMS AND HAS NOT HAD ANY MEDICATION SINCE LAST NIGHT. SPOKE TO NURSE I LEFT THE FLOOR. 04/29/23
--- NOTE | 2023-04-29 11:18 | PM.PN ---
Subjective Subjective: Patient is laying supine She has a laptop set up in front of her She is stating that her suprapubic catheter gets changed every 19 days her last exchange was on April 06 She is particular about her medications requesting pharmacy to verify so we could resume Vitals/I&O/Wt Last Vital Signs Temp 98.6 F 04/29/23 08:00 Pulse 73 04/29/23 08:00 Resp 14 04/29/23 11:11 BP 91/57 04/29/23 08:00 Pulse Ox 94 04/29/23 11:11 O2 Del Method Room Air 04/29/23 00:25 04/28/23 04/29/23 04/29/23 22:59 06:59 14:59 Intake Total 50 / 50 800 / 850 Balance 50 / 50 800 / 850 Weight last 48 hrs Weight 72.575 kg Weight 63.503 kg Physical Exam Narrative: Patient is not in pain Lower extremity covered with offloading dressing Suprapubic catheter in place No active drainage Misuse atrophy of lower extremities Abdomen soft Pleasant and cooperative Covered with multiple layers Nonfocal neuroexam Joint contractures Right greater than left S1, S2 Currently on room air She has a gum stuck in her upper gingiva Data 04/28/23 20:26 04/29/23 03:47 Micro: Microbiology 04/28/23 22:02 Blood Culture - Preliminary Blood SPECIMEN COLLECTED 04/28/23 21:57 Blood Culture - Preliminary Blood SPECIMEN COLLECTED A&P Assessment and plan (1) Hx of pulmonary embolus: (2) Adrenal insufficiency: (3) Urinary tract infection: Qualifiers: Hematuria presence: with hematuria Urinary tract infection type: acute cystitis Qualified Code(s): N30.01 - Acute cystitis with hematuria (4) Candidiasis: (5) Systemic lupus erythematosus, unspecified: (6) Positive JARRED (antinuclear antibody): (7) Multiple sclerosis: (8) Acute encephalopathy: Plan Advanced stage MS Patient is bedbound helps her at home a great deal Requesting care home placement I am not sure if she is able to participate with PT considering her joint contractures and advanced MS metabolic encephalopathy related to the fever UTI Recurrent UTI Previous culture positive for Pseudomonas Will wait over the weekend to see final culture report to see whether she will need IV versus oral antibiotic Suprapubic catheter catheter placed every 90 days Continue Coumadin for history of PE Multiple decubitus ulcer Offloading dressing Change position every 2-3 hours, nursing care Advance diet mechanical soft diet History of facility inflammatory arthritis antiphospholipid syndrome: Continue Coumadin Adrenal insufficiency: Continue stress dose steroids Metabolic encephalopathy: Resolved In terms of cardiac arrest patient is DNR/DNI however in terms there is any reversible cause for Rester distress she is okay with intubation Attestations Medical Necessity Statement*: Continue medical hospitalization continue medical management Diagnoses Hx of pulmonary embolus Z86.711 Adrenal insufficiency E27.40 Urinary tract infection N30.01 Hematuria presence: with hematuria Urinary tract infection type: acute cystitis Candidiasis B37.9 Systemic lupus erythematosus, unspecified M32.9 Positive JARRED (antinuclear antibody) R76.8 Multiple sclerosis G35 Acute encephalopathy G93.40
[2023-04-29] MEDS: morphine ER (12 HR) 15 mg Tablet PO ×2 (13:35→20:00)
[2023-04-29] MEDS: sodium chloride 0.9% 1,000 ML 75 ML IV (14:42)
[2023-04-29] MEDS: warfarin 5 mg Tablet PO (14:42)
[2023-04-29] MEDS: fludrocortisone 0.1 mg Tablet 0.100000000000000006 MG PO (14:43)
[2023-04-29] MEDS: baclofen 10 mg Tablet 20 MG PO (14:44)
[2023-04-29] MEDS: pregabalin 100 mg Capsule PO (18:20)
[2023-04-29] MEDS: docusate sodium 100 mg Capsule PO (18:20)
--- NOTE | 2023-04-29 18:24 | PC.NURSE ---
notified Dr. Veronica patient is totally refusing Solu-Cortef.
[2023-04-29] MEDS: sertraline 100 mg Tablet 150 MG PO (20:00)
[2023-04-29] MEDS: baclofen 10 mg Tablet 30 MG PO (20:00)
[2023-04-29] MEDS: cyclobenzaprine 10 mg Tablet PO (21:38)
[2023-04-29] MEDS: acetaminophen 325 mg Tablet 650 MG PO (21:41)
[2023-04-29] MEDS: HYDROcodone-acetaminophen 5-325 mg Tablet 0.5 TAB PO (23:22)
[2023-04-30] VITALS (8 sets, daily range): BP systolic 79–98; BP diastolic 51–63; PULSE 61–103; RESP 16–18; TEMP 36.4–36.8; O2SAT 94–97
[2023-04-30] MEDS: sodium chloride 0.9% 1,000 ML 75 ML IV (03:33)
[2023-04-30] MEDS: morphine ER (12 HR) 15 mg Tablet PO ×3 (03:33→20:51)
[2023-04-30] MEDS: meropenem 1,000 MG in sodium chloride 0.9% (plus) 50 ML 100 MG IV ×3 (05:05→20:51)
[2023-04-30 05:07] LABS: Basophils # 0.1 10^3/uL (0.0-0.1); Basophils % 0.8 %; Eosinophils # 0.1 10^3/uL (0.0-0.8); Eosinophils % 1.7 %; Hematocrit 36.5 % (36-47); Lymphocytes # 3.1 10^3/uL (0.8-4.8); Lymphocytes % 49.8 %; Mean Corpuscular Hemoglobin 29.1 pg (27-33); Mean Corpuscular Volume 94.1 fl (85-98); Mean Platelet Volume 13.2 fL (7.4-10.4); Monocytes # 0.4 10^3/uL (0.2-0.9); Neutrophils # 2.61 10^3/uL (1.8-7.7); Neutrophils % 41.5 %; Nucleated Red Blood Cells % 0 %; Platelet Count 76 10^3/cmm (157-399); Red Blood Count 3.88 10^6/uL (3.85-5.65); Red Cell Distribution Width 15.4 % (12.1-15.1); White Blood Count 6.29 10^3/uL (3.29-11.43)
[2023-04-30 05:21] LABS: INR 3.63 (0.8-1.2)
[2023-04-30 05:28] LABS: Alanine Aminotransferase 7 U/L (0-33); Albumin Level 3.1 g/dL (3.5-5.2); Alkaline Phosphatase 96 U/L (35-105); Anion Gap 10.8 (5-19); Aspartate Amino Transferase 18 U/L (0-32); Blood Urea Nitrogen 11 mg/dL (6-20); Carbon Dioxide 28 mmol/L (22-29); Chloride 107 mmol/L (98-107); Creatinine Clr Calc Pharmacy 125.4062; Globulin 2.3 g/dL (1.3-4.6); Glomerular Filtration Rate 127.6 mL/min (90-130); Glucose 82 mg/dL (65-115); Osmolality Calculated 292 mOsm/kg (285-295); Phosphorus 1.8 mg/dL (2.5-4.5); Potassium 3.8 mmol/L (3.5-5.1); Sodium 142 mmol/L (136-145); Total Bilirubin 0.2 mg/dL (0.15-1.2); Total Protein 5.4 g/dL (6.6-8.7)
[2023-04-30] MEDS: levothyroxine 125 mcg Tablet 62.5 MCG PO (05:58)
[2023-04-30] MEDS: pregabalin 100 mg Capsule PO ×2 (09:50→17:52)
[2023-04-30] MEDS: methylphenidate 10 mg Tablet 20 MG PO (09:50)
[2023-04-30] MEDS: lactobacillus 1 Tablet 1 TAB PO ×4 (09:50→20:49)
[2023-04-30] MEDS: docusate sodium 100 mg Capsule PO ×2 (09:50→17:52)
--- NOTE | 2023-04-30 09:53 | PC.NURSE ---
Systolic greater than 85 and map is greater than 60. BP is 98/63 with a map of 74
[2023-04-30] MEDS: baclofen 10 mg Tablet 20 MG PO ×2 (09:57→13:24)
[2023-04-30] MEDS: hydrocortisone 10 mg Tablet PO (09:58)
--- NOTE | 2023-04-30 10:43 | PM.PN ---
Subjective Subjective: Patient is stating that she would not want IV Solu-Medrol which she is okay with using p.o. hydrocortisone She has IV fluids running at the bedside She was asking about the total duration of antibiotics considering penicillin sensitive I think she will need 5 to 7 days Vitals/I&O/Wt Last Vital Signs Temp 97.5 F L 04/30/23 08:00 Pulse 62 04/30/23 08:00 Resp 16 04/30/23 08:00 BP 98/63 04/30/23 08:00 Pulse Ox 97 04/30/23 08:00 O2 Del Method Room Air 04/30/23 04:00 04/29/23 04/30/23 04/30/23 22:59 06:59 14:59 Intake Total 340 / 340 1050 / 1390 Output Total 500 / 500 150 / 650 Balance -160 / -160 900 / 740 Weight last 48 hrs Weight 83.546 kg Weight 72.575 kg Weight 63.503 kg Physical Exam Narrative: No significant change since yesterday laying supine Covered with multiple layers He has a laptop set up with [employer]) Abdomen soft Suprapubic catheter in place Lower extremity offloading dressing IV fluids running at the bedside at 75 mill per hour Data 04/30/23 04:41 04/30/23 04:41 Micro: Microbiology 04/28/23 21:57 Blood Culture - Preliminary Blood NEGATIVE TO DATE 04/28/23 22:02 Blood Culture - Preliminary Blood NEGATIVE TO DATE A&P Assessment and plan (1) Hx of pulmonary embolus: (2) Adrenal insufficiency: (3) Urinary tract infection: Qualifiers: Hematuria presence: with hematuria Urinary tract infection type: acute cystitis Qualified Code(s): N30.01 - Acute cystitis with hematuria (4) Systemic lupus erythematosus, unspecified: (5) Positive JARRED (antinuclear antibody): (6) Inflammatory arthritis: (7) Arthralgia of both knees: (8) AVN of femur: (9) Decubitus ulcer of left heel, unstageable: (10) Multiple sclerosis: Plan Antiphospholipid syndrome Target INR 2.5-3.5 She gets special dosing on Wednesdays and Sundays Pharmacy consult for Coumadin dosing MS Continue muscle relaxants and opioids UTI metabolic encephalopathy: Resolved Most likely will need 7 days of total antibiotics if penicillin sensitive Likely will need [place] [facility] Adrenal insufficiency Blood pressure stays systolic 70 to 90s She does not want to use IV Solu-Medrol I will continue Florinef and hydrocortisone I might be able to discontinue IV fluids by tomorrow just reduce the rate of IV fluids to 50 mill per hour In case of cardiac arrest DO NOT RESUSCITATE DO NOT INTUBATE For respiratory arrest and for reversible cause such as pneumonia causing respiratory distress she is okay with intubation Attestations Medical Necessity Statement*: Continue medical management Diagnoses Hx of pulmonary embolus Z86.711 Adrenal insufficiency E27.40 Urinary tract infection N30.01 Hematuria presence: with hematuria Urinary tract infection type: acute cystitis Systemic lupus erythematosus, unspecified M32.9 Positive JARRED (antinuclear antibody) R76.8 Inflammatory arthritis M19.90 Arthralgia of both knees M25.561; M25.562 AVN of femur M87.059 Decubitus ulcer of left heel, unstageable L89.620 Multiple sclerosis G35
[2023-04-30] MEDS: warfarin 5 mg Tablet PO (15:12)
--- NOTE | 2023-04-30 17:57 | PC.NURSE ---
Cortef not given due to bp 98/55 with a map of 69. does not meet requirements
[2023-04-30] MEDS: HYDROcodone-acetaminophen 5-325 mg Tablet 0.5 TAB PO (18:02)
[2023-04-30] MEDS: sertraline 100 mg Tablet 150 MG PO (20:49)
[2023-04-30] MEDS: baclofen 10 mg Tablet 30 MG PO (20:50)
[2023-04-30] MEDS: sodium chloride 0.9% 1,000 ML 50 ML IV (20:52)
[2023-05-01] VITALS (9 sets, daily range): BP systolic 88–104; BP diastolic 57–68; PULSE 60–81; RESP 16–20; TEMP 36.4–36.9; O2SAT 94–97
[2023-05-01] MEDS: morphine ER (12 HR) 15 mg Tablet PO ×3 (04:13→20:19)
[2023-05-01] MEDS: meropenem 1,000 MG in sodium chloride 0.9% (plus) 50 ML 100 MG IV ×3 (04:14→20:12)
[2023-05-01] MEDS: levothyroxine 125 mcg Tablet 62.5 MCG PO (05:10)
[2023-05-01 05:17] LABS: INR 4.05 (0.8-1.2)
[2023-05-01 05:27] LABS: Alanine Aminotransferase 8 U/L (0-33); Albumin Level 2.9 g/dL (3.5-5.2); Alkaline Phosphatase 108 U/L (35-105); Anion Gap 7.3 (5-19); Aspartate Amino Transferase 16 U/L (0-32); Blood Urea Nitrogen 10 mg/dL (6-20); Calcium 7.9 mg/dL (8.5-10.5); Carbon Dioxide 27 mmol/L (22-29); Chloride 108 mmol/L (98-107); Creatinine Clr Calc Pharmacy 134.1098; Globulin 2.3 g/dL (1.3-4.6); Glomerular Filtration Rate 127.6 mL/min (90-130); Glucose 80 mg/dL (65-115); Osmolality Calculated 284 mOsm/kg (285-295); Potassium 4.3 mmol/L (3.5-5.1); Sodium 138 mmol/L (136-145); Total Bilirubin 0.2 mg/dL (0.15-1.2); Total Protein 5.2 g/dL (6.6-8.7)
[2023-05-01] MEDS: docusate sodium 100 mg Capsule PO ×2 (09:04→18:20)
[2023-05-01] MEDS: lactobacillus 1 Tablet 1 TAB PO ×4 (09:05→20:10)
[2023-05-01] MEDS: hydrocortisone 10 mg Tablet PO (09:05)
[2023-05-01] MEDS: pregabalin 100 mg Capsule PO ×2 (09:05→18:20)
[2023-05-01] MEDS: methylphenidate 10 mg Tablet 20 MG PO (09:05)
[2023-05-01] MEDS: baclofen 10 mg Tablet 20 MG PO ×2 (09:08→12:15)
--- NOTE | 2023-05-01 10:08 | P.PN_ITS ---
Subjective 2 Subjective: Patient doing much better She is happy with the progress She will need midline for 2 weeks of ertapenem 1 g daily Patient states to off I have told her that I am not able to increase her dose of opiates at this time Vitals/I&O/Wt Last Vital Signs Temp 97.8 F 05/01/23 09:07 Pulse 70 05/01/23 09:07 Resp 19 H 05/01/23 09:07 BP 100/62 05/01/23 09:07 Pulse Ox 95 05/01/23 09:07 O2 Del Method Room Air 05/01/23 09:07 04/30/23 05/01/23 05/01/23 22:59 06:59 14:59 Intake Total 1290.00 / 1340.00 50 / 1390.00 Output Total 1200 / 1200 350 / 1550 Balance 90.00 / 140.00 -300 / -160.00 Weight last 48 hrs Weight 79.492 kg Weight 83.546 kg Physical Exam 2 Narrative: Awake and alert Laying supine Jose J multiple liters GCS 15 Has been at the bedside Happy with the progress Abdomen soft Pleasant and cooperative Data 04/30/23 04:41 05/01/23 04:33 Micro: Microbiology 04/28/23 18:00 Urine Culture - Final Urine,Clean Catch Pseudomonas aeruginosa A&P Assessment and plan (1) High risk medication use: (2) Hx of pulmonary embolus: (3) Adrenal insufficiency: (4) Urinary tract infection: Qualifiers: Hematuria presence: with hematuria Urinary tract infection type: acute cystitis Qualified Code(s): N30.01 - Acute cystitis with hematuria (5) Systemic lupus erythematosus, unspecified: (6) Positive JARRED (antinuclear antibody): (7) Multiple sclerosis: Plan Multiple sclerosis no acute flare Adrenal insufficiency Blood pressure stable Continue fludrocortisone and hydrocortisone at this point Pain well-managed I would not increase the dose of opioids She is DNI/DNI in case of cardiac arrest however for respiratory distress she is okay with intubation Hopefully will be for discharge her by Tuesday I would recommend 1 g ertapenem for 14 days Metabolic encephalopathy related to UTI: Resolved Attestations 2 Medical Necessity Statement*: Possible discharge on Tuesday Diagnoses High risk medication use Z79.899 Hx of pulmonary embolus Z86.711 Adrenal insufficiency E27.40 Urinary tract infection N30.01 Hematuria presence: with hematuria Urinary tract infection type: acute cystitis Systemic lupus erythematosus, unspecified M32.9 Positive JARRED (antinuclear antibody) R76.8 Multiple sclerosis G35
--- NOTE | 2023-05-01 13:01 | PC.NURSE ---
Midline placed to left basilic vein. Referred to vascular access nurse for midline placement [facility] 2 [facility] Risks and benefits discussed and informed consent obtained from patient. Left arm assessed with left basilic vein measuring 5.2 mm, straight, and apparent best choice for placement. Using sterile technique and MST, left basilic vein accessed x 1 stick. Mid-arm circumference measured 10 cm from left AC 28 cm. Trimmed cath 11 cm with 0 cm external length noted. Line secured with stat-lock. Insertion site covered with Biopatch and TSM. Report given to bedside nurseCece.
--- NOTE | 2023-05-01 14:29 | PC.NURSE ---
Hold warfarin per Dr. Veronica due to INR of 4.05
[2023-05-01] MEDS: HYDROcodone-acetaminophen 5-325 mg Tablet 0.5 TAB PO (15:27)
[2023-05-01] MEDS: baclofen 10 mg Tablet 30 MG PO (20:10)
[2023-05-01] MEDS: sertraline 100 mg Tablet 150 MG PO (20:11)
[2023-05-02 03:31] LABS: INR 2.71 (0.8-1.2)
[2023-05-02 03:46] VITALS: BP 100/65; PULSE 68; RESP 18; TEMP 36.9; O2SAT 95
[2023-05-02] MEDS: meropenem 1,000 MG in sodium chloride 0.9% (plus) 50 ML 100 MG IV ×2 (04:04→13:59)
[2023-05-02] MEDS: morphine ER (12 HR) 15 mg Tablet PO ×2 (04:05→10:51)
[2023-05-02 05:37] VITALS: PULSE 64
[2023-05-02] MEDS: levothyroxine 125 mcg Tablet 62.5 MCG PO (05:55)
[2023-05-02 08:00] VITALS: BP 94/65; PULSE 71; RESP 18; TEMP 36.6; O2SAT 93
[2023-05-02] MEDS: baclofen 10 mg Tablet 20 MG PO ×2 (10:49→13:58)
[2023-05-02] MEDS: docusate sodium 100 mg Capsule PO (10:49)
[2023-05-02] MEDS: methylphenidate 10 mg Tablet 20 MG PO (10:49)
[2023-05-02] MEDS: pregabalin 100 mg Capsule PO (10:50)
[2023-05-02] MEDS: CLONazepam 0.5 mg Tablet PO (10:50)
[2023-05-02] MEDS: hydrocortisone 10 mg Tablet PO (10:50)
[2023-05-02] MEDS: lactobacillus 1 Tablet 1 TAB PO ×2 (10:50→13:58)
[2023-05-02] MEDS: cyclobenzaprine 10 mg Tablet PO (10:50)
--- NOTE | 2023-05-02 11:01 | P.DS_ITS ---
Discharge Providers Date of Admission: 04/28/23 23:21 Date of Discharge: May 02, 2023 Attending Provider at Admission: Stu Alonzo Attending Provider at Discharge: Aletha Veronica MD Primary Care Provider: Jarod Cherry MD Diagnoses at Discharge Discharge Diagnosis (1) High risk medication use: Status: Acute (2) Hx of pulmonary embolus: Status: Acute (3) Adrenal insufficiency: Status: Acute (4) Urinary tract infection: Status: Acute Qualifiers: Hematuria presence: with hematuria Urinary tract infection type: acute cystitis Qualified Code(s): N30.01 - Acute cystitis with hematuria (5) Systemic lupus erythematosus, unspecified: Status: Acute (6) Positive JARRED (antinuclear antibody): Status: Acute (7) Multiple sclerosis: Status: Acute Reason for Visit Reason for Visit: possible uti Hospital Course Hospital Course 57-year-old female who was admitted for management of addisonian crisis related to UTI, patient has had recurrent UTIs she had fever as well, she was put on meropenem, urine culture showed Pseudomonas, she is not sensitive to oral antibiotics, she was given IV steroids which was switched to oral she is very particular about her medication she wants exactly to be the same medication that she was taking at home, she did hemodynamically stable, does well with GI soft diet, in case of cardiac arrest she is DNI/DNI however for reversible causes for respiratory distress she is okay with intubation, she is being discharged to [facility] for 2 weeks of IV antibiotics 1 g of ertapenem, midline has been placed. will take her home after 2 weeks. She has sacral ulcer, advanced MS, right-sided body contracture, bedbound In order to get electric scooter she will need to follow-up with her PCP and Occupational Therapy She may resume Florinef along hydrocortisone on daily basis instead of as needed She also takes Ritalin on daily basis along opioids and muscle relaxant, target INR is 2.5-3.5 for her antiphospholipid/autoimmune disease She takes Coumadin 6 mg on Wednesdays and Sundays otherwise she takes 5 mg on rest of the days Physical Exam Narrative: Hemodynamically stable Awake and alert No new focal deficit Right-sided contractures Right-sided weakness Laying in bed with multiple blankets This is normally how she is Discharge Data Studies Completed and Pending Completed Studies During Hospitalization Category [place] [id number] Routine Ultrasound 04/29/23 00:24 Completed Pending at discharge Category Date Time Status Blood Culture Stat Lab 04/28/23 22:02 Results COVID [SARS Covid-2 Antigen] Routine Lab 05/02/23 09:57 Uncollected Prothrombin Time INR AM LABS Lab 05/03/23 04:00 Ordered Prothrombin Time INR AM LABS Lab 05/04/23 04:00 Ordered Laboratory Results WBC 6.29 10^3/uL (3.29-11.43) 04/30/23 04:41 RBC 3.88 10^6/uL (3.85-5.65) 04/30/23 04:41 Hgb 11.30 g/dL (11.27-16.99) 04/30/23 04:41 Hct 36.5 % (36-47) 04/30/23 04:41 MCV 94.1 fl (85-98) 04/30/23 04:41 MCH 29.1 pg (27-33) 04/30/23 04:41 MCHC 31.0 g/dL (30-55) 04/30/23 04:41 RDW 15.4 % (12.1-15.1) H 04/30/23 04:41 Plt Count 76 10^3/cmm (157-399) L 04/30/23 04:41 MPV 13.2 fL (7.4-10.4) H 04/30/23 04:41 Neut % (Auto) 41.5 % 04/30/23 04:41 Lymph % (Auto) 49.8 % 04/30/23 04:41 [place] % (Auto) 6.0 % 04/30/23 04:41 Eos % (Auto) 1.7 % 04/30/23 04:41 Baso % (Auto) 0.8 % 04/30/23 04:41 Neut # (Auto) 2.61 10^3/uL (1.8-7.7) 04/30/23 04:41 Lymph # (Auto) 3.1 10^3/uL (0.8-4.8) 04/30/23 04:41 [place] # (Auto) 0.4 10^3/uL (0.2-0.9) 04/30/23 04:41 Eos # (Auto) 0.1 10^3/uL (0.0-0.8) 04/30/23 04:41 Baso # (Auto) 0.1 10^3/uL (0.0-0.1) 04/30/23 04:41 Nucleated RBC % (auto) 0 % 04/30/23 04:41 Nucleated RBCs # 0.0 /100WBC 04/30/23 04:41 PT 29.80 SECONDS (12.1-14.9) H 05/02/23 03:00 INR 2.71 (0.8-1.2) H 05/02/23 03:00 Sodium 138 mmol/L (136-145) 05/01/23 04:33 Potassium 4.3 mmol/L (3.5-5.1) 05/01/23 04:33 Chloride 108 mmol/L (98-107) H 05/01/23 04:33 Carbon Dioxide 27 mmol/L (22-29) 05/01/23 04:33 Anion Gap 7.3 (5-19) 05/01/23 04:33 BUN 10 mg/dL (6-20) 05/01/23 04:33 Creatinine 0.5 mg/dL (0.5-0.9) 05/01/23 04:33 GFR Calculation 127.6 mL/min (90-130) 05/01/23 04:33 Glucose 80 mg/dL (65-115) 05/01/23 04:33 Calculated Osmolality 284 mOsm/kg (285-295) L 05/01/23 04:33 Calcium 7.9 mg/dL (8.5-10.5) L 05/01/23 04:33 Phosphorus 1.8 mg/dL (2.5-4.5) L 04/30/23 04:41 Magnesium 2.0 mg/dL (1.7-2.3) 04/29/23 03:47 Total Bilirubin 0.2 mg/dL (0.15-1.2) 05/01/23 04:33 AST 16 U/L (0-32) 05/01/23 04:33 ALT 8 U/L (0-33) 05/01/23 04:33 Alkaline Phosphatase 108 U/L (35-105) H 05/01/23 04:33 Total Protein 5.2 g/dL (6.6-8.7) L 05/01/23 04:33 Albumin 2.9 g/dL (3.5-5.2) L 05/01/23 04:33 Globulin 2.3 g/dL (1.3-4.6) 05/01/23 04:33 Urine Color Yellow (Yellow) 04/28/23 18:00 Urine Appearance Cloudy (CLEAR) A 04/28/23 18:00 Urine pH 5 (5-7) 04/28/23 18:00 Ur Specific [place] 1.020 (1.005-1.030) 04/28/23 18:00 Urine Protein 2+ (Negative) H 04/28/23 18:00 Urine Glucose (UA) Norm (Normal) 04/28/23 18:00 Urine Ketones 1+ (Negative) H 04/28/23 18:00 Urine Blood 3+ (Negative) H 04/28/23 18:00 Urine Nitrate Positive (Negative) H 04/28/23 18:00 Urine Bilirubin 1+ (Negative) H 04/28/23 18:00 Urine Urobilinogen 1 mg/dL (Negative) H 04/28/23 18:00 Ur Leukocyte Esterase 2+ (Negative) H 04/28/23 18:00 Urine RBC 0-4 /hpf (0-2) H 04/28/23 18:00 Urine WBC 80-100 /hpf (0-5) H 04/28/23 18:00 Ur Squamous Epith Cells None /hpf (0-5) 04/28/23 18:00 Amorphous Sediment Not Reportable 04/28/23 18:00 Urine Bacteria 2+ /hpf (NONE) H 04/28/23 18:00 Urine Mucus 1+ /hpf 04/28/23 18:00 Vitals Last Vital Signs Temp 97.9 F 05/02/23 08:00 Pulse 71 05/02/23 08:00 Resp 18 05/02/23 08:00 BP 94/65 05/02/23 08:00 Pulse Ox 93 05/02/23 08:00 O2 Del Method Room Air 05/02/23 08:00 Discharge Plan Discharge Patient Disposition: Xfer SNF Condition: Stable Prescriptions: Continued sertraline 100 mg tablet 150 mg PO BEDTIME levothyroxine [Synthroid] 125 mcg tablet 62.5 mcg PO QAM prednisone 20 mg tablet See Rx Instructions PO .COMPLEX PRN (Reason: joint pain flare) Qty: 30 1RF Rx Instructions: take 1 or 2 tab daily for 3-7 days as needed for arthritis flare PO PRN; sumatriptan succinate [Imitrex] 50 mg tablet 50 mg PO BID PRN (Reason: Migraine Headache) Qty: 9 0RF morphine 15 mg tablet extended release 15 mg PO Q8H 30 Days Qty: 90 0RF Rx Instructions: do not fill until 04/25/23 morphine 15 mg tablet extended release 15 mg PO Q8H 30 Days Qty: 90 0RF Rx Instructions: do not fill until 05/25/23 methylphenidate HCl 20 mg tablet 20 mg PO TID 30 Days Qty: 90 0RF Rx Instructions: do not fill until 04/25/23 methylphenidate HCl 20 mg tablet 20 mg PO TID 30 Days Qty: 90 0RF Rx Instructions: do not fill until 05/24/23 (DME) Wheel [employer] See Rx Instructions .Route .MEDSUPPLY Qty: 1 0RF Rx Instructions: As directed baclofen 10 mg tablet See Rx Instructions .ROUTE .COMPLEX Qty: 240 3RF Dose Instruction: TAKE 2 TABLETS BY MOUTH EVERY MORNING, TWO at NOON, THREE AT BEDTIME, THEN ONE NEEDED FOR MUSCLE SPASMS Rx Instructions: TAKE 2 TABLETS AT 0600, 2 TABLETS 1400, AND 3 TABLETS 2200, AND 2 TABLETS NEEDED FOR MUSCLE SPASMS clonazepam 0.5 mg tablet 0.5 mg PO TID PRN (Reason: anxiety) Qty: 270 3RF gentamicin 0.1 % ointment 1 applic TOPICAL DAILY Rx Instructions: Apply to wounds warfarin 1 mg tablet See Rx Instructions .ROUTE .COMPLEX Qty: 0 0RF Protocol: Dose Management Condition: Tuesday Dose/Route: 5 mg Instruction: 5 x 1 mg tablets Condition: Tuesday Dose/Route: 0 mg Instruction: 0 tablets Condition: Tuesday Dose/Route: 4.5 mg Instruction: 4.5 x 1 mg tablets Condition: Tuesday Dose/Route: 5 mg Instruction: 5 x 1 mg tablets Condition: Dose/Route: 4.5 mg Instruction: 4.5 x 1 mg tablets Condition: Tuesday Dose/Route: 5 mg Instruction: 5 x 1 mg tablets Condition: Tuesday Dose/Route: 4.5 mg Instruction: 4.5 x 1 mg tablets Protocol Text: Adjustment Start Date: Tuesday10/20/21 INR Value: 4.8 INR Date: 10/20/21 Recheck Date: 10/27/21 Rx Instructions: TAKE 2 TABLETS ON TUESDAY AND TUESDAY, AND 1 TABLET THE ALONG WITH 4 MG TABLET TO = 5 mg rest of the days 28 mg iron- 800 mcg Tablet 1 tab PO DAILY warfarin 4 mg tablet 4 mg PO DAILY oxycodone 10 mg tablet 10 mg PO QID PRN (Reason: Pain) cyclobenzaprine 10 mg tablet 10 mg PO BID PRN (Reason: MUSCLE SPASMS) Lyrica 100 mg capsule 100 mg PO BID Rx Instructions: take morning and noon docusate sodium 100 mg Capsule 100 mg PO BID Acidophilus Capsule 500 mmu cells PO TIDWMEAL PRN (Reason: WHEN ON ANTIBIOTICS) pseudoephedrine HCl [Sudogest] 60 mg tablet 60 mg PO BID PRN (Reason: Allergy Symptoms) Changed fludrocortisone 0.1 mg Tablet 0.1 mg PO DAILY Qty: 30 0RF Rx Instructions: for SBP <85 or MAP <65 hydrocortisone 10 mg tablet 10 mg PO BID Qty: 60 0RF Rx Instructions: for SBP < 85 or MAP < 60 Discharge Orders: Discharge Order (Routine); Ordered 05/02/23 Ordered By: Aletha Veronica Referrals: [facility] [Outside] Jarod Cherry MD [Primary Care Provider] - Patient Instructions: Opioid Safety Activity Restrictions/Additional Instructions: IN Order to obtain order for a new motorized w/c. You will need to follow up with your Primary care provider and obtain an order for Occupational therapy outpatient eval for wheeled mobility and seating evaluation. We would recommend continuation of Florinef and hydrocortisone on daily basis instead of as needed until you are at the [facility] INR at the time of discharge 2.7 Discharge Attestations Time Spent in Discharge Care*: greater than 30 min Quality Metrics Clinical Quality Measures [ No reported AMI, CVA or VTE this stay] Coding Level of Care Code Acute Code for Chg Fwd Diagnoses High risk medication use Z79.899 Hx of pulmonary embolus Z86.711 Adrenal insufficiency E27.40 Urinary tract infection N30.01 Hematuria presence: with hematuria Urinary tract infection type: acute cystitis Systemic lupus erythematosus, unspecified M32.9 Positive JARRED (antinuclear antibody) R76.8 Multiple sclerosis G35
--- NOTE | 2023-05-02 11:30 | PC.SOCIAL ---
IMM Update pg 2 of IMM updated and reviewed w/ patient. Copy provided and copy dated, initialed and placed in chart.
[2023-05-02 11:59] VITALS: BP 105/58; PULSE 84; RESP 18; TEMP 36.9; O2SAT 94
[2023-05-02] MEDS: warfarin 3 mg Tablet PO (13:58)
[2023-05-02 14:49] LABS: SARS Covid-2 Antigen negative (Negative)
[2023-05-02] MEDS: HYDROcodone-acetaminophen 5-325 mg Tablet 0.5 TAB PO (15:20)
[2023-05-02 16:25] VITALS: BP 105/58; PULSE 84; RESP 18; TEMP 36.9; O2SAT 94
== END 2023-05-02 15:45 | disposition skilled nursing facility (03) | DRG 689 ==
LOC: ER 21:45 → MEDSURG 23:21
PROVIDERS: Admitting Provider Internal Medicine; Emergency Provider Emergency Medicine; PCP Family Medicine; Visit Provider Internal Medicine
DX: N30.01 Acute cystitis with hematuria (principal); G93.41 Metabolic encephalopathy; E27.2 Addisonian crisis; D68.61 Antiphospholipid syndrome; E27.40 Unspecified adrenocortical insufficiency; B96.5 Pseudomonas (aeruginosa) (mallei) (pseudomallei) as the cause of diseases classified elsewhere; Z66 Do not resuscitate; Z87.891 Personal history of nicotine dependence; G35 Multiple sclerosis; Z96.0 Presence of urogenital implants; Z79.01 Long term (current) use of anticoagulants; Z86.711 Personal history of pulmonary embolism; Z74.01 Bed confinement status; M32.9 Systemic lupus erythematosus, unspecified; L89.159 Pressure ulcer of sacral region, unspecified stage; Z86.718 Personal history of other venous thrombosis and embolism
CPT/HCPCS: 36415; 36569; 36573; 80053; 81001; 83735; 84100; 85025; 85610; 87040; 87077; 87086; 87186; 87426; 93970; 96365; 96375; 99285; C1751; J1720; J2185; J2270; J7030; J7040; J7050; J8499

== ENCOUNTER 2023-05-30 06:00 | Outpatient (RCR) | payer MEDICARE, OTHER, SELFPAY | END 2023-06-28 23:59 | disposition home or self-care (01) | LOC: SOT 06:00 | PROVIDERS: Visit Provider Specialist | DX: G82.50 Quadriplegia, unspecified (principal) | CPT/HCPCS: 97167 ==

== ENCOUNTER 2023-06-20 15:53 | Outpatient (CLI) | payer MEDICARE, OTHER, SELFPAY ==
[2023-06-20 18:21] LABS: Protein Urine Trace (Negative); Specific Gravity, Urine 1.005 (1.005-1.030); Urine Appearance Cloudy (CLEAR); Urine Color Straw (Yellow); pH Urine 8 (5-7)
[2023-06-20 18:22] LABS: Blood Urine 2+ (Negative); Glucose Urine UA Norm (Normal); Ketones Urine 1+ (Negative)
[2023-06-20 18:23] LABS: Add Urine Culture? Yes; Add Urine Microscopic? YES; Bacteria Urine 3+ /hpf; Bilirubin Urine Neg (Negative); Leukocyte Esterase Urine 2+ (Negative); Nitrate Urine Negative (Negative); Squamous Epithelial Cell Urine RARE /hpf (0-5); Sulfosalicylic Acid Urine Positive (Negative); Urobilinogen Urine Norm (Negative); WBC Urine >100 /hpf (0-5)
== END 2023-06-20 15:54 | disposition home or self-care (01) ==
LOC: LAB 15:56
PROVIDERS: PCP Family Medicine; Visit Provider Family Medicine
DX: N39.0 Urinary tract infection, site not specified (principal)
CPT/HCPCS: 81001; 87077; 87086; 87186

== ENCOUNTER → 2023-10-12 16:45 | Outpatient (BNVA) | payer MEDICARE, OTHER, SELFPAY | PROVIDERS: PCP Family Medicine; Visit Provider Specialist | DX: Z53.9 Procedure and treatment not carried out, unspecified reason (principal) | CPT/HCPCS: 99214 ==

== ENCOUNTER 2024-05-18 13:08 | Emergency (ER) | payer MEDICARE, OTHER, SELFPAY ==
[2024-05-18] VITALS (12 sets, daily range): BP systolic 103; BP diastolic 61; PULSE 84–104; RESP 16–20; TEMP 36.2; O2SAT 93–100; BMI 22.4
--- NOTE | 2024-05-18 13:51 | W.ED.SOB ---
HPI - SOB/Dyspnea General: Chief Complaint: Shortness of Breath/Dyspnea Stated Complaint: SOB Time Seen by Provider: 05/18/24 13:11 History of Present Illness: HPI Narrative: This is a pleasant 58-year-old female with MS who is bedbound. She has weak respiratory muscles and cough which is slowly progressive over time. The patient reports she has had a cough for about 2 weeks. Her history is corroborated by her who is an independent historian at bedside. He got worried today because she had a mucous plug which gave her some respiratory distress. Her cough is often times not strong enough to immediately displace the sputum. He has been using some guaifenesin. Patient also uses albuterol, ipratropium, and inhaled corticosteroid with long-acting beta agonist. She does use oxygen as needed. Upon arrival, she is back to her baseline and is needing only 0.5 L/min of oxygen by nasal cannula. Patient reports temperature has not been over 98.6 but she does not run a fever when she is sick. Patient does take fludrocortisone as needed. She also takes hydrocortisone as needed. She has not been having to take it recently. Patient is also on warfarin treatment for phospholipid antibody syndrome. No hemoptysis. No asymmetric extremity edema. Patient does endorse a decreased oral intake for couple days. Associated symptoms: Reports chest congestion; Deny abdominal pain, chest pain, extremity pain, fever(s), hemoptysis, nausea, syncope or vomiting Related Data Home Medications ?Medication ?Instructions ?Recorded ?Confirmed sertraline 100 mg tablet 150 mg PO BEDTIME 03/21/19 05/18/24 levothyroxine 125 mcg tablet 62.5 mcg PO QAM 07/02/19 05/18/24 (Synthroid) Lactobacillus acidophilus 500 mmu cells PO TIDWMEAL PRN WHEN 07/15/22 05/18/24 (Acidophilus capsule) ON ANTIBIOTICS docusate sodium 100 mg capsule 200 mg PO .Q AFTERNOON 07/15/22 05/18/24 pseudoephedrine HCl 60 mg tablet 60 mg PO BID PRN Allergy Symptoms 07/15/22 05/18/24 (Sudogest) vit no.95-ferrous 1 tab PO DAILY 04/29/23 05/18/24 fumarate 28 mg-folic acid 800 mcg tablet () warfarin 4 mg tablet 4 mg PO DAILY 04/29/23 05/18/24 fludrocortisone 0.1 mg tablet 0.1 mg PO DAILY PRN Hypotension 05/18/24 05/18/24 guaifenesin 400 mg tablet 400 mg PO Q4H PRN Congestion 05/18/24 05/18/24 hydrocortisone 10 mg tablet 10 mg PO BID PRN Hypotension 05/18/24 05/18/24 levocetirizine 5 mg tablet (Xyzal) 5 mg PO DAILY PRN allergies 05/18/24 05/18/24 methylphenidate HCl 20 mg tablet 20 mg PO QAM 05/18/24 05/18/24 montelukast 10 mg tablet 10 mg PO DAILY 05/18/24 05/18/24 warfarin 1 mg tablet 1.5 mg PO DAILY 05/18/24 05/18/24 Previous Rx's ?Medication ?Instructions ?Recorded Wheel Chair Repairs #1 ea 11/06/19 sumatriptan succinate 50 mg tablet 50 mg PO BID PRN Migraine Headache 03/04/23 (Imitrex) #9 tabs morphine 15 mg tablet,extended 15 mg PO Q8H 30 days #90 tabs 01/12/24 release oxycodone 10 mg tablet 10 mg PO QID PRN Pain 1 month #60 01/12/24 tabs pregabalin 100 mg capsule (Lyrica) 100 mg PO BID #180 caps 01/12/24 cyclobenzaprine 10 mg tablet 10 mg PO BID PRN MUSCLE SPASMS #60 03/06/24 tabs clonazepam 0.5 mg tablet 0.5 mg PO TID PRN anxiety #270 tabs 04/17/24 morphine 15 mg tablet,extended 15 mg PO Q8H 30 days #90 tabs 04/17/24 release baclofen 10 mg tablet See Rx Instructions .Route 04/23/24 .COMPLEX #240 tabs amoxicillin 875 mg-potassium 1 tab PO BID 10 days #20 tabs 05/18/24 clavulanate 125 mg tablet Allergies Allergy/AdvReac Type Severity Reaction Status Date / Time erythromycin base Allergy Unknown Verified 10/12/23 17:06 interferon beta-1b (From Allergy Unknown Verified 10/12/23 17:06 Betaseron) lorazepam (From Ativan) Allergy Unknown Verified 10/12/23 17:06 Review of Systems General: Reports: 10 or more systems reviewed and unremarkable except in HPI and below Const: Reports: change in appetite and fatigue; Denies: fever(s) or chills Eyes: Denies: change in vision ENMT: Denies: throat pain Card: Denies: chest pain, edema or syncope Resp: Reports: dyspnea, wheezing and chest congestion; Denies: productive cough (Feels like it could be productive but cannot get anything up) or hemoptysis GI: Reports: constipation; Denies: abdominal pain, nausea, vomiting or diarrhea : Denies: flank pain, dysuria or urinary frequency Musc: Denies: neck pain, back pain, extremity pain or extremity swelling Skin/Breast: Denies: rash or erythema Neuro: Reports: weakness in extremities (Chronic) and difficulty walking (Chronic; bedbound); Denies: headache(s) or lack of coordination PFSH ED PFSH: Medical History ESBL (extended spectrum beta-lactamase) producing bacteria infection Multiple drug resistant organism (MDRO) culture positive Complicated urinary tract infection Decubitus ulcer of left heel, unstageable Deep tissue injury Pulmonary embolus Multiple sclerosis Neuromuscular weakness Multiple sclerosis Recurrent UTI AVN of femur Positive JARRED (antinuclear antibody) High risk medication use Hx of pulmonary embolus Hx of deep venous thrombosis Wheelchair bound Inflammatory arthritis Multiple sclerosis Neuralgia and neuritis, unspecified Likely disease Systemic lupus erythematosus, unspecified Antiphospholipid syndrome Pulmonary embolism Surgical History Hx of cholecystectomy History of bone marrow biopsy H/O chest tube placement Family History Denies family history of Rheumatoid arthritis Lupus Social History Smoking and tobacco/nicotine status: never used tobacco/nicotine Quit status (tobacco/nicotine): has quit using Year quit tobacco: 2009 Former quit date comment: Hx of 1 PPD x 13 Years Alcohol intake: former Substance/Drug Use: never Caregiver/support person: Yes () Lives independently: Yes Household members: spouse Marital status: Current occupational status: disabled Do you think of yourself as: Straight/Heterosexual Current gender identity: Female Female Reproductive History: Date of last menstrual period: 06/10/20 Physical Exam Const: COMMON NORMALS: no limitations and alert; negative for average body habitus (Decondition with less than average muscle bulk) EXAM LIMITATIONS: no altered mental status HENMT: COMMON NORMALS: normocephalic, atraumatic and external ears normal HEAD & SCALP: normocephalic and atraumatic EXTERNAL EAR: Yes external ears normal MOUTH: no muffled voice Eye: COMMON NORMALS: conjunctivae normal and no scleral icterus CONJUNCTIVA: Yes conjunctivae normal Neck/C-Spine: COMMON NORMALS: no JVD GENERAL: Yes normal visual inspection and Yes trachea midline Resp: OTHER: Patient does have a weak cough. She does use some accessory muscles to help her breathe. She is not in respiratory distress. Her rate of breathing is normal. She is 97% on 0.5 L/min. A few basilar crackles are present. No wheezing. Cardio: COMMON NORMALS: no JVD, regular rate and regular rhythm RATE: regular rate RHYTHM: regular rhythm GI: COMMON NORMALS: Soft to palpation and non-tender PALPATION: Yes Soft to palpation and No Guarding due to palpation present (GI) Extremity: COMMON NORMALS: normal to inspection Neuro: SENSORIUM/ORIENTATION: Yes alert SPEECH: speech normal OTHER: Decondition, abnormal tone, bedbound Psych: COMMON NORMALS: mental status grossly normal, Normal thought process present, cooperative, normal affect and speech normal (Soft quiet speech) SPEECH: Yes normal speech (Soft quiet speech) THOUGHT PROCESS: Normal thought process present Skin: COMMON NORMALS: no rashes or lesions noted, turgor normal and no jaundice GENERAL SKIN EXAM: no rashes or lesions noted and turgor normal Course Vital Signs: Vital signs: Vital Signs Temperature 97.1 F L 05/18/24 13:11 Pulse Rate 84 05/18/24 20:25 Respiratory Rate 16 05/18/24 20:25 Blood Pressure 103/61 05/18/24 20:25 Pulse Oximetry 96 05/18/24 20:25 Oxygen Delivery Me thod Nasal Cannula 05/18/24 17:50 Oxygen Flow Rate 0.5 05/18/24 17:50 MDM - SOB/Dyspnea Medical Decision Making EKG was obtained at 1319. EP interpretation. Sinus tachycardia, rate 104. Normal axis. Normal intervals. Some nonspecific low voltage T waves with flattening, otherwise no concerning ST or T wave abnormalities. No ectopy noted. This is a pleasant 58-year-old female with MS who has progressive systemic weakness but it has been affecting her diaphragm, rib muscles/chest wall, neck muscles, etc. for some time. She has been sick with a respiratory illness for about 2 weeks. She intermittently feels like she has a mucous plug and has trouble getting it out. Fortunately she was able to clear it by the time she got here. They have been using guaifenesin at home. Chest x-ray here does show: There are patchy opacities in the left costophrenic angle, retrocardiac region, above the surface of the right diaphragm and in the periphery of the right upper lobe. No nodules or masses are seen. The heart is normal. The pulmonary vascularity is not increased. No pneumothorax is seen. The aortic arch shows tortuosity. Monitor leads are on the chest wall. She is afebrile here. She is at her baseline oxygen demand. She is not in respiratory distress. She is already on warfarin. Low suspicion for PE. White blood cell count is close to 11,000. Neutrophil percentage is high. Sodium and chloride are both low. Patient reports decreased p.o. intake. She has normal mental status. Discussed with her and . They feel comfortable doing home care. is doing manual physiotherapy on her chest to help with secretions. We will also have her increase her fluid intake and start making sure that she has a full 3 meals per day. She does not have to watch her salt over the next few days. She will need to get her sodium and chloride levels rechecked middle of next week. Since she has a history of aspiration, we are going to use Augmentin which she has tolerated in the past. Medical Records I reviewed the patient's medical records. Lab Data I reviewed the patient's lab results. 05/18/24 15:25 05/18/24 15:25 Labs/Radiology: Radiology Impressions Chest X-Ray 05/18/24 14:29 Impression: 1. Multiple patchy opacities which may represent minimal pneumonia, atelectasis or in the left lower lobe minimal effusion. 2. Atherosclerosis. Laboratory Results WBC 10.86 10^3/uL (3.29-11.43) 05/18/24 15:25 RBC 4.02 10^6/uL (3.85-5.65) 05/18/24 15:25 Hgb 11.60 g/dL (11.27-16.99) 05/18/24 15:25 Hct 35.9 % (36-47) L 05/18/24 15:25 MCV 89.3 fl (85-98) 05/18/24 15: MCH 28.9 pg (27-33) 05/18/24 15: MCHC 32.3 g/dL (30-55) 05/18/24 15:25 RDW 14.1 % (12.1-15.1) 05/18/24 15: Plt Count 114 10^3/cmm (157-399) L 05/18/24 15: MPV 11.2 fL (7.4-10.4) H 05/18/24 15:25 Neut % (Auto) 95.6 % 05/18/24 15:25 Lymph % (Auto) 2.6 % 05/18/24 15:25 Rich % (Auto) 1.1 % 05/18/24 15:25 Eos % (Auto) 0.1 % 05/18/24:25 Baso % (Auto) 0.2 % 05/18/24: Neut # (Auto) 10.39 10^3/uL (1.8-7.7) H 05/18/24:25 Lymph # (Auto) 0.3 10^3/uL (0.8-4.8) L 05/18/24 15:25 Rich # (Auto) 0.1 10^3/uL (0.2-0.9) L 05/18/24 15:25 Eos # (Auto) 0.0 10^3/uL (0.0-0.8) 05/18/24 15:25 Baso # (Auto) 0.0 10^3/uL (0.0-0.1) 05/18/24:25 Nucleated RBC % (auto) 0 % 05/18/24:25 Nucleated RBCs # 0.0 /100WBC 05/18/24 15:25 Sodium 128 mmol/L (136-145) L 05/18/24 15:25 Potassium 3.7 mmol/L (3.5-5.1) 05/18/24 15:25 Chloride 93 mmol/L (98-107) L 05/18/24 15:25 Carbon Dioxide 23 mmol/L (22-29) 05/18/24 15:25 Anion Gap 15.7 (5-19) 05/18/24 15:25 BUN 5 mg/dL (6-20) L 05/18/24 15:25 Creatinine 0.5 mg/dL (0.5-0.9) 05/18/24 15:25 GFR Calculation 127.2 mL/min (90-130) 05/18/24 15:25 Glucose 137 mg/dL (65-115) H 05/18/24 15:25 Calculated Osmolality 265 mOsm/kg (285-295) L 05/18/24 15:25 Calcium 8.8 mg/dL (8.5-10.5) 05/18/24 15:25 Total Bilirubin 0.4 mg/dL (0.15-1.2) 05/18/24 15:25 AST 14 U/L (0-32) 05/18/24 15:25 ALT < 5 U/L (0-33) 05/18/24 15:25 Alkaline Phosphatase 82 U/L (35-105) 05/18/24 15:25 Total Protein 7.2 g/dL (6.6-8.7) 05/18/24 15:25 Albumin 3.4 g/dL (3.5-5.2) L 05/18/24 15:25 Globulin 3.8 g/dL (1.3-4.6) 05/18/24 15:25 All radiology interpretation(s) finalized by discharge Discharge Plan Discharge Patient Disposition: Home Clinical Impression: Community acquired pneumonia, At high risk for aspiration, Weak cough, Neuromuscular respiratory weakness, Hyponatremia Condition: Stable Prescriptions: New amoxicillin-pot clavulanate 875-125 mg tablet 1 tab PO BID 10 Days Qty: 20 0RF No Action sertraline 100 mg tablet 150 mg PO BEDTIME levothyroxine [Synthroid] 125 mcg tablet 62.5 mcg PO QAM sumatriptan succinate [Imitrex] 50 mg tablet 50 mg PO BID PRN (Reason: Migraine Headache) Qty: 9 0RF morphine 15 mg tablet extended release 15 mg PO Q8H 30 Days Qty: 90 0RF oxycodone 10 mg tablet 10 mg PO QID PRN (Reason: Pain) 30 Days Qty: 60 0RF Lyrica 100 mg capsule 100 mg PO BID Qty: 180 1RF Rx Instructions: take morning and noon (DME) Wheel Chair Repairs See Rx Instructions .Route .MEDSUPPLY Qty: 1 0RF Rx Instructions: As directed cyclobenzaprine 10 mg tablet 10 mg PO BID PRN (Reason: MUSCLE SPASMS) Qty: 60 3RF clonazepam 0.5 mg tablet 0.5 mg PO TID PRN (Reason: anxiety) Qty: 270 3RF morphine 15 mg tablet extended release 15 mg PO Q8H 30 Days Qty: 90 0RF baclofen 10 mg tablet See Rx Instructions .ROUTE .COMPLEX Qty: 240 3RF Dose Instruction: TAKE 1 TABLET BY MOUTH AT 6AM, TWO TABLETS 2PM, TWO TABLETS AT 10PM AND TWO NEEDED FOR MUSCLE SPASMS Rx Instructions: TAKE 2 TABLETS BY MOUTH AT 6AM, TWO TABLETS 2PM, 2 TABLETS AT 10PM AND 2 TABLETS NEEDED FOR MUSCLE SPASMS. PNV cmb#95-ferrous fumarate-FA [] 28 mg iron- 800 mcg Tablet 1 tab PO DAILY warfarin 4 mg tablet 4 mg PO DAILY guaifenesin 400 mg Tablet 400 mg PO Q4H PRN (Reason: Congestion) levocetirizine [Xyzal] 5 mg Tablet 5 mg PO DAILY PRN (Reason: allergies) methylphenidate HCl 20 mg tablet 20 mg PO QAM hydrocortisone 10 mg tablet 10 mg PO BID PRN (Reason: Hypotension) Rx Instructions: for SBP < 85 or MAP < 60 warfarin 1 mg tablet 1.5 mg PO DAILY Protocol: Dose Management Condition: Tuesday Dose/Route: 5 mg Instruction: 5 x 1 mg tablets Condition: Tuesday Dose/Route: 0 mg Instruction: 0 tablets Condition: Tuesday Dose/Route: 4.5 mg Instruction: 4.5 x 1 mg tablets Condition: Tuesday Dose/Route: 5 mg Instruction: 5 x 1 mg tablets Condition: Dose/Route: 4.5 mg Instruction: 4.5 x 1 mg tablets Condition: Tuesday Dose/Route: 5 mg Instruction: 5 x 1 mg tablets Condition: Tuesday Dose/Route: 4.5 mg Instruction: 4.5 x 1 mg tablets Protocol Text: Adjustment Start Date: Tuesday10/20/21 INR Value: 4.8 INR Date: 10/20/21 Recheck Date: 10/27/21 fludrocortisone 0.1 mg tablet 0.1 mg PO DAILY PRN (Reason: Hypotension) Rx Instructions: for SBP <85 or MAP <65 montelukast 10 mg Tablet 10 mg PO DAILY docusate sodium 100 mg Capsule 200 mg PO .Q AFTERNOON Acidophilus Capsule 500 mmu cells PO TIDWMEAL PRN (Reason: WHEN ON ANTIBIOTICS) pseudoephedrine HCl [Sudogest] 60 mg tablet 60 mg PO BID PRN (Reason: Allergy Symptoms) Discharge Orders: Discharge ED (Routine); Ordered 05/18/24 Ordered By: Aneudy Chew Referrals: Jarod Cherry MD [Primary Care Provider] - 05/23/24 (hyponatremia, community acquired pneumonia, neuromuscular weakness of cough/respiratory muscles) Patient Instructions: Hyponatremia (ED), Community Acquired Pneumonia (ED) Activity Restrictions/Additional Instructions: 1. Take a course of Augmentin. Remember to take probiotics. 2. Increase your oral intake including fluids and foods. You do not have to worry about a low-salt diet for the next 3 to 5 days. Your sodium was slightly low today. It will need to be rechecked in about 5 days. 3. Make a follow-up with your doctor for next week, ideally around Tuesday or Tuesday so that your labs can be drawn around Tuesday. 4. Return to the emergency department if you are getting worse. That would include respiratory distress, lethargy, confusion, increased oxygen demand, or other urgent concerns. Print Language: Czech Coding Level of Care Code ED In House Counsel for Betty Mccarthy
--- NOTE | 2024-05-18 14:29 | XR_ITS ---
WS: [id number] Portable AP upright chest, 05/18/2024 Clinical Data: cough Comparison: Portable chest, 07/16/2022 Findings: There are patchy opacities in the left costophrenic angle, retrocardiac region, above the surface of the right diaphragm and in the periphery of the right upper lobe. No nodules or masses are seen. The heart is normal. The pulmonary vascularity is not increased. No pneumothorax is seen. The aortic arch shows tortuosity. Monitor leads are on the chest wall. XR/XR chest 1V portable [id number] Impression: 1. Multiple patchy opacities which may represent minimal pneumonia, atelectasis or in the left lower lobe minimal effusion. 2. Atherosclerosis.
--- NOTE | 2024-05-18 14:29 | PC.PHAR ---
Sarah states pts' INR is due today. Guardian also state pt has 3 solutions for her nebulizing machine: Albuterol, Ipatropium, and Budesonide.
[2024-05-18 15:34] LABS: Basophils % 0.2 %; Eosinophils % 0.1 %; Hematocrit 35.9 % (36-47); Lymphocytes # 0.3 10^3/uL (0.8-4.8); Lymphocytes % 2.6 %; Mean Corpuscular HGB Conc 32.3 g/dL (30-55); Mean Corpuscular Hemoglobin 28.9 pg (27-33); Mean Corpuscular Volume 89.3 fl (85-98); Mean Platelet Volume 11.2 fL (7.4-10.4); Monocytes # 0.1 10^3/uL (0.2-0.9); Monocytes % 1.1 %; Neutrophils # 10.39 10^3/uL (1.8-7.7); Neutrophils % 95.6 %; Nucleated Red Blood Cells % 0 %; Platelet Count 114 10^3/cmm (157-399); Red Blood Count 4.02 10^6/uL (3.85-5.65); Red Cell Distribution Width 14.1 % (12.1-15.1); White Blood Count 10.86 10^3/uL (3.29-11.43)
[2024-05-18 15:48] LABS: Alanine Aminotransferase < 5 U/L (0-33); Albumin Level 3.4 g/dL (3.5-5.2); Alkaline Phosphatase 82 U/L (35-105); Anion Gap 15.7 (5-19); Aspartate Amino Transferase 14 U/L (0-32); Blood Urea Nitrogen 5 mg/dL (6-20); Calcium 8.8 mg/dL (8.5-10.5); Carbon Dioxide 23 mmol/L (22-29); Chloride 93 mmol/L (98-107); Creatinine Clr Calc Pharmacy 115.0239; Globulin 3.8 g/dL (1.3-4.6); Glomerular Filtration Rate 127.2 mL/min (90-130); Glucose 137 mg/dL (65-115); Osmolality Calculated 265 mOsm/kg (285-295); Potassium 3.7 mmol/L (3.5-5.1); Sodium 128 mmol/L (136-145); Total Bilirubin 0.4 mg/dL (0.15-1.2); Total Protein 7.2 g/dL (6.6-8.7)
[2024-05-18] MEDS: amoxicillin-clav 875-125 mg Tablet 1 TAB PO (17:10)
--- NOTE | 2024-05-18 17:14 | ECG_ITS ---
[facility] Date: 2024-05-18 Pat Name: Deborah Viramontes Department: Room: Gender: Female [employer]: : 1965 Requested By: Aneudy Chew Order Number: [id number] Mita MD: Sam Bell M.D. Measurements Intervals [place] Rate: 104 P: 69 MS: 123 QRS: 42 QRSD: 83 T: 21 QT: 308 QTc: 405 Interpretive Statements SINUS TACHYCARDIA LOW QRS VOLTAGE IN PRECORDIAL LEADS [QRS DEFLECTION < 1.0 mV IN CHEST LEADS] NONSPECIFIC T-WAVE ABNORMALITY Compared to ECG 09/03/2020 23:26:24 Low QRS voltage now present T-wave abnormality now present Sinus rhythm no longer present Electronically Signed On 05-19-2024 07:41:03 CDT by Sam Bell M.D. [email or web address]
[2024-05-18] MEDS: ipratropium-albuterol 3 mL Neb INHALATION (17:53)
== END 2024-05-18 20:26 | disposition home or self-care (01) ==
PROVIDERS: Emergency Provider Emergency Medicine; PCP Family Medicine
DX: J18.9 Pneumonia, unspecified organism (principal); R05.9 Cough, unspecified; R53.1 Weakness; E87.1 Hypo-osmolality and hyponatremia; Z79.01 Long term (current) use of anticoagulants; Z87.891 Personal history of nicotine dependence
CPT/HCPCS: 36415; 71045; 80053; 85025; 93005; 94640; 99285; J9999

== ENCOUNTER → 2024-07-06 15:30 | Outpatient (BNVA) | payer MEDICARE, OTHER, SELFPAY | PROVIDERS: PCP Family Medicine; Visit Provider Specialist | DX: G35 Multiple sclerosis (principal); G70.9 Myoneural disorder, unspecified; Z86.711 Personal history of pulmonary embolism; M32.9 Systemic lupus erythematosus, unspecified | CPT/HCPCS: 99214 ==

== ENCOUNTER 2024-11-15 16:32 | Outpatient (CLI) | payer MEDICARE, OTHER, SELFPAY ==
[2024-11-15 16:55] LABS: Glucose Urine UA Negative (Normal); Nitrate Urine Positive (Negative); Specific Gravity, Urine 1.013 (1.005-1.030)
[2024-11-15 16:57] LABS: Add Urine Microscopic? YES
[2024-11-15 17:14] LABS: UA Slide Review UA Slide Review Perf
== END 2024-11-15 16:33 | disposition home or self-care (01) ==
LOC: LAB 16:37
PROVIDERS: PCP Family Medicine; Visit Provider Family Medicine
DX: N39.0 Urinary tract infection, site not specified (principal)
CPT/HCPCS: 81001; 87086

== ENCOUNTER 2024-11-16 13:49 | Outpatient (CLI) | payer MEDICARE, OTHER, SELFPAY ==
[2024-11-16 14:26] LABS: Hematocrit 36.4 % (36-47); Hemoglobin 12.20 g/dL (11.27-16.99); Mean Corpuscular HGB Conc 33.5 g/dL (30-55); Mean Corpuscular Hemoglobin 29.5 pg (27-33); Mean Corpuscular Volume 88.1 fl (85-98); Nucleated Red Blood Cells % 0 %; Platelet Count 72 10^3/cmm (157-399); Red Blood Count 4.13 10^6/uL (3.85-5.65); White Blood Count 4.79 10^3/uL (3.29-11.43)
[2024-11-16 14:34] LABS: Slide Review Slide Review Perform
[2024-11-16 14:52] LABS: Alanine Aminotransferase 6 U/L (0-33); Albumin Level 3.6 g/dL (3.5-5.2); Alkaline Phosphatase 79 U/L (35-105); Anion Gap 15.9 (5-19); Aspartate Amino Transferase 17 U/L (0-32); Blood Urea Nitrogen 10 mg/dL (6-20); Calcium 8.8 mg/dL (8.5-10.5); Carbon Dioxide 25 mmol/L (22-29); Chloride 97 mmol/L (98-107); Globulin 3.1 g/dL (1.3-4.6); Glucose 99 mg/dL (65-115); Osmolality Calculated 277 mOsm/kg (285-295); Potassium 3.9 mmol/L (3.5-5.1); Sodium 134 mmol/L (136-145); Thyroid Stimulating Hormone 1.36 uIU/mL (0.27-4.20); Total Protein 6.7 g/dL (6.6-8.7)
== END 2024-11-16 13:50 | disposition home or self-care (01) ==
LOC: LAB 13:51
PROVIDERS: PCP Family Medicine; Visit Provider Family Medicine
DX: E03.9 Hypothyroidism, unspecified (principal)
CPT/HCPCS: 80053; 84443; 85025